=== PATIENT | male | born 1935 | race Caucasian/White ===

== ENCOUNTER 2016-04-02 09:32 | Outpatient (CLI) | payer OTHER ==
[~2016-04-02 09:32] MED LIST: METHYLPREDNISOLONE SUCC IV ONE; SODIUM CHLORIDE 0.9% IV ONE
[2016-04-02] MEDS: NORMAL SALINE 10 ML SYRINGE FLUSH IVP PRN ×2 (09:45→10:40)
[2016-04-02 11:16] VITALS: RESP 14; TEMP 98.1
== END 2016-04-02 10:45 | disposition home or self-care (01) ==
LOC: IV THERAPY 09:32
PROVIDERS: ATTEND Emergency Medicine
DX: G54.1 Lumbosacral plexus disorders (principal)
CPT/HCPCS: 96365; 99211; J2930; J7050

== ENCOUNTER 2016-04-09 09:40 | Outpatient (CLI) | payer OTHER ==
[2016-04-09] MEDS: NORMAL SALINE 10 ML SYRINGE FLUSH IVP PRN ×2 (10:25→11:30)
[2016-04-09 10:29] VITALS: RESP 20; TEMP 97.8
== END 2016-04-09 11:31 | disposition home or self-care (01) ==
LOC: IV THERAPY 09:40
PROVIDERS: ATTEND Emergency Medicine
DX: G54.1 Lumbosacral plexus disorders (principal)
CPT/HCPCS: 96365; 99211; J2930; J7050

== ENCOUNTER 2016-04-13 09:00 | Inpatient (IN) | payer OTHER ==
[2016-04-13] MEDS ORDERED: NORMAL SALINE 10 ML SYRINGE FLUSH IVP PRN (09:25)
[2016-04-13] MEDS ORDERED: Sodium Chloride 0.9% 1,000 ML PRIMARY IV ONE (09:25)
[2016-04-13] MEDS ORDERED: KETOROLAC 15 MG/1 ML VIAL IVP ONE (09:25)
[2016-04-13 09:59] LABS: BASOPHILS # (AUTO) 0.02 10*3/UL; BASOPHILS % (AUTO) 0.3 % (0-1); EOSINOPHILS % (AUTO) 2.2 % (0-8); HEMATOCRIT 36.1 % (42.0-52.0); HEMOGLOBIN 12.3 g/dL (14.0-18.0); IMM GRAN % (AUTO) 0.5 % (0-5); IMM GRAN# (AUTO) 0.03 10*3/UL; LYMPHOCYTES # (AUTO) 0.39 10*3/uL; LYMPHOCYTES % (AUTO) 6.2 % (10-50); MEAN CORPUSCULAR HEMOGLOBIN 31.9 PG (27-31); MEAN CORPUSCULAR HGB CONC 34.1 g/dL (33-37); MONOCYTES # (AUTO) 0.95 10*3/UL (0.3-0.8); MONOCYTES % (AUTO) 15.2 % (5-15); NEUTROPHILS # (AUTO) 4.74 10*3/UL; NEUTROPHILS % (AUTO) 75.6 % (50-80); RDW COEFFICIENT OF VARIATION 14.5 % (11.5-14.5); RED BLOOD COUNT 3.86 10^6/uL (4.70-6.10); WHITE BLOOD COUNT 6.27 10^3/uL (4.8-10.8)
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
[2016-04-13 10:19] LABS: BILIRUBIN,TOTAL 0.8 mg/dL (0.3-1.2); C-REACTIVE PROTEIN 2.2 mg/dL (0.0-0.9); CALCIUM 8.9 mg/dL (8.7-10.7); CREATININE 0.8 mg/dL (0.70-1.50); POTASSIUM 4.8 meq/L (3.8-5.2); TOTAL PROTEIN 5.4 g/dL (6.1-8.0)
[2016-04-13 10:34] LABS: PLATELET MORPHOLOGY COMMENT NORMAL MORPHOLOGY (NORM)
--- NOTE | 2016-04-13 11:53 | DI ---
CT PELVIS SCAN WITHOUT IV CONTRAST, 04/13/2016 9:26 AM : Clinical History: Fall. Low back pain and sacral pain. Previous Exam: None at this facility. Scans are performed from just superior to the umbilicus to below the symphysis pubis without IV cont rast. Sagittal and coronal images are generated. Scans through the lower abdomen and pelvis show no masses or abnormal fluid collections. There is no adenopathy. The appendix is normal. There is marked hypertrophy of the prostate with thickening of th e bladder wall. No hernias are identified. There is diffuse osteoporosis without evidence of a fractu re of the bony pelvis, the sacrum and coccyx, or of either hip. Cystic changes are present in the rig ht parasymphyseal region along with sclerosis in these changes may be related to previous trauma. READIN. No acute fractures of the bony pelvis, the sacrum and coccyx, or of the hips are noted. There is osteoporosis. 2. Scans of the pelvis are otherwise unremarkable except for evidence of marked prostatic hypertroph y with thickening of the bladder wall.
--- NOTE | 2016-04-13 12:38 | DI ---
CT LUMBAR SPINE SCAN, 04/13/2016 9:26 AM : Clinical History: Injury. The patient fell. Previous Exam: None at this facility. Comparison is made with an MRI lumbar spine scan from 12/30/2015 , and a CT abdomen and pelvis scan from 01/09/2016. Scans are obtained from the mid body of T-12 to the coccyx without IV contrast. Sagittal and coronal reformatted images are generated. There is an acute compression fracture of the body of L3 on the left lateral aspect without involveme nt of the posterior elements. There is no significant loss of height noted. There is an old compressi on fracture of L4 that was present on the MRI scan and the CT scan from last year. The MRI scan showe d no abnormal signal intensity at the site of the L4 compression fracture. The remaining vertebral stacy dies are of normal height. The patient has developed a new sclerotic density in the anterior aspect o f the body of L4 and the sclerotic density present in the anterior aspect of the body of L2 has incre ased in size since the CT abdomen and pelvis scans of 01/09/2016. Posterior alignment and posterior e lements are normal. Pedicles are normal. The sacrum and SI joints are normal. There is diffuse osteop orosis. The disc spaces at T11-12 and T12-L1 are normal. The disc spaces from L1-2 through L5-S1 show bulging but not herniated discs without canal or neural foraminal stenosis. There is a 4-5 mm right renal calculus in upper pole calyx and a smaller right mid zone calculus that measures 1-2 mm in diam eter and both are nonobstructing calculi. READIN. There is an acute compression fracture of the superior endplate of the body of L3 on the left gigi e with no significant loss of height and no involvement of the posterior elements. There is an old co mpression fracture of L4 that has not changed since the previous CT abdomen pelvis scan from 01/09/20 16. This patient has severe osteoporosis. 2. Interval enlargement and new development of sclerotic foci in the bodies of L2 and L4, respective ly. The MRI scan from 12/30/2015 did not show any evidence of edema in the body of L4 at the site of t he compression fracture. This would make the sclerotic densities on likely to represent healing fract ures. There are more likely to represent blastic metastatic disease in this patient with known prosta tic enlargement. 3. There are bulging but not herniated discs without canal or neural foraminal stenosis from L1-2 th rough L5-S1. The T11-12 and T12-L1 disc spaces are normal. 4. Incidental finding of small right-sided nonobstructing renal calculi.
--- NOTE | 2016-04-13 14:16 | PDOC ---
History and Physical - History of Present Illness Date and Time of Service: 04/13/2016 2:16 PM Chief Complaint: Low back pain of 3-4 days duration after a fall History of Present Illness: This is an 81 years old female with medical history significant for history of TIAs, history of prostate cancer with previous radiation treatment done in [place], history of shingles that affected the eyes and history of what sounds like neuropathy that affected the legs and he is getting IV Solu-Medrol once a week he's been followed up by Dr. Allred for it, he came into the hospital because of low back pain he fell 3-4 days ago after he lost balance and fell on his side he was not able to get up for an hour or so the last few days things got worse with worsening pain he tried some oxycodone at home however pain persisted and because of that he came into the ER. CT in the ER showed L3 fracture which looks acute and hence the admission. Apparently back in January or December he started to have some pain mainly in his legs and numbness in weakness he had several investigations done by Dr. Allred including an EMG and an LP and lab tests sent to [place] according to the family and he was started on steroid and that seemed to help the pain in his legs but he is still having numbness. There is also weakness in his legs and this is all old. He is been constipated for 4 days Past Medical History Medical History: 1. History of prostate cancer with previous radiation treatment. 2. Hypertension. 3. Shingles affected the eyes. 4. Neuropathy based on his description getting IV Solu-Medrol once a week. 5. History of TIAs Surgical History: 1. History of skin cancer with previous surgery Past Social History: He doesn't smoke but he chews, area drinks, no drugs. He lives with his . Since he had this problem with his the legs is more using wheelchair for mobility. Tobacco Use: Never Smoker Substance Use Type: None Alcohol Use: Rarely Medication / Allergies Home Medications: Home Medications Medication Instructions Recorded Confirmed Type Tamsulosin HCl [Flomax] 1 cap PO BID cap 07/16/14 04/13/16 History Atorvastatin Calcium 1 tab PO DAILY #90 tab 10/02/15 04/13/16 Clinic Clopidogrel Bisulfate [Plavix] 1 tab PO DAILY #90 tab 10/02/15 04/13/16 Clinic Gabapentin 1 cap PO TID #90 cap 12/12/15 04/13/16 Clinic Aspirin 81 mg PO DAILY tab 12/27/15 04/13/16 History Clotrimazole/Betamethasone Dip 1 applic TOPICAL BID #60 tube 12/27/15 04/13/16 [facility] [Clotrimazole-Betamethasone Crm] Oxycodone HCl 1 tab PO Q4-6H #60 tab 02/12/16 04/13/16 Clinic Allergies/Adverse Reactions: Allergies Allergy/AdvReac Type Severity Reaction Status Date / Time petrchelletum, yellow Allergy Mild rash Verified 04/14/16 11:26 Review of Systems - Review of Systems All Systems: Reviewed & No Additional Complaints Except as Stated Exam - Vitals Vital Signs: Vital Signs Temperature 97.6 F Temperature Source Temporal Artery Scan Pulse Rate [Pulse Oximeter 64 Right] Pulse Rate 67 Respiratory Rate 20 Blood Pressure [Left Arm] 147/70 Blood Pressure 127/91 Pulse Ox 91 Oxygen Delivery Method Room Air Height 5 ft 6 in Weight 120 lb - General General Appearance: POSITIVE: No Acute Distress, Cooperative - Head Head Exam: POSITIVE: Normal Inspection, Atraumatic - Eye Eye Exam: POSITIVE: Normal Appearance - ENT ENT Exam: POSITIVE: Normal Exam - Neck Neck Exam: POSITIVE: Normal Inspection - Respiratory Respiratory Exam: POSITIVE: Clear to Auscultation - Bilaterally - Cardiovascular Cardiovascular Exam: POSITIVE: RRR - GI/Abdominal GI/Abdominal Exam: POSITIVE: Normal Bowel Sounds, Non Tender, Non Distended, Soft - Rectal Rectal Exam: POSITIVE: Deferred - External Exam: POSITIVE: Deferred - Extremities Extremities Exam: POSITIVE: Normal Inspection - Back Back Exam: POSITIVE: Normal Inspection - Neurological Neurological Exam: POSITIVE: Alert, Oriented x 3, CN II-XII Intact Additional Neurological Exam Details: Weakness in the left leg compared to the right leg she's old - Psychiatric Psychiatric Exam: POSITIVE: Normal Affect - Integumentary Additional Integumentary Exam Details: A blister noted on the back. Results - Labs CBC and BMP: 04/13/16 09:53 04/13/16 09:53 - Imaging Status: Report Reviewed by Me (There is an acute compression fracture superior endplates of the body of L3 on the left side with no significant loss of height and no involvement of the posterior elements. Interval enlargement and new development of sclerotic foci in the bodies of L2 and L4 respectively they are more likely to represent blastic metastasis) Assessment and Plan - Patient Problems (1) Compression fracture of L3 lumbar vertebra Current Visit: Yes Status: Acute Comment: We will write for pain medications, PT and OT. (2) Bone lesion Current Visit: Yes Status: Acute Comment: There are lesions on the spine per my discussion with Dr. Driver suspicious for blastic metastasis. We'll check his PSA level. Code(s): M89.9 (3) History of transient ischemic attack Current Visit: Yes Status: Acute Comment: Continue previous medications
[2016-04-13] MEDS: GABAPENTIN 300 MG CAPSULE PO SCH ×2 (15:34→20:35)
--- NOTE | 2016-04-13 16:58 | OTI REPORT ---
Thank you for the referral of Adriano Faye. He was seen on 04/13/16 for an occupational therapy inpatient evaluation. SUBJECTIVE: The patient is an 81-year-old male. The states that he lived at home with his prior to his recent hospitalization. The patient has a two level home; however, he does not go up the stairs. He has one step in the entrance with no rail present. The patient has a walk in shower with shower chair, grab bar, and hand held shower. The patient has a raised toilet seat. He sleeps in a standard bed and does have a four wheeled walker and cane at home. The patient was admitted for low back pain and a related fall. The patient has a history of TIA, prostate cancer, skin cancer, and a history of shingles that affected his vision in both eyes. Prior to admittance the patient was independence with dressing, ADLs, required min assist for showering, and stated that his son does help him. He states that his does the cooking, cleaning, laundry, and grocery shopping with their son. PAST MEDICAL HISTORY: Past medical history can be found in the patient's medical record. OBJECTIVE FINDINGS: Pain: The patient reports a pain level of 8/10 on the verbal analog scale (0=no pain, 10=worst pain). Range of motion: Active range of motion of bilateral upper extremities is within functional limits. Strength: Upper extremity strength is 3+ to 4/5, depending on the pivot. Activities of daily living: Grooming requires contact guard to min assist with steadying needed to help patient while standing at the sink due to decreased dynamic balance deficits and low back pain. Toileting requires min assist with assistance needed to steady the patient. The patient is a little bit guarded when he stands due to low back pain. Toilet transfer requires min assist to contact guard with use of grab bars. Showering requires mod assist due to compromised reach and ability to flex forward due to back precautions and compression fracture. Shower transfer requires min assist for same reasons, decreased dynamic balance deficits, and guarded movement. Upper body dressing requires set up assistance. Lower body dressing requires mod assistance; the patient just needs help initiating threading in both pant legs and with socks due to back precautions and compression fractures. ASSESSMENT: Problem List: Decreased ability to perform ADLs Decreased balance/mobility Decreased transfers Decreased safety Low back pain Patient will benefit from education on adaptive equipment use and to develop a home exercise program Short-Term Goals: To be met by discharge from inpatient: Patient will complete functional transfers with modified independence with adaptive equipment use including toilet and shower transfers. Patient will complete upper and lower body dressing with modified independence with adaptive equipment use. Patient will complete showering including shower transfer with modified independence and adaptive equipment use as needed. Long-Term Goals: To be met following discharge from inpatient: Patient will increase safety, ADLs, and strength sufficient to return home to his prior level of function, performing ADLs with supervision to min assist for showering. TREATMENT PLAN: Patient will be seen B.I.D during the week and one time per day over the weekend as an inpatient to address the above goals and objectives. INITIAL TREATMENT: Treatment today consisted of the initial evaluation activities only. ARABELLA
[2016-04-13] MEDS: HYDROcodone-APAP 5 MG -325 MG TABLET PO PRN (19:04)
[2016-04-13] MEDS: DOCUSATE 100 MG CAPSULE PO SCH (20:34)
[2016-04-13] MEDS: TAMSULOSIN 0.4 MG CAPSULE PO SCH (20:34)
[2016-04-13] MEDS: ATORVASTATIN 20 MG TABLET PO SCH (20:34)
[2016-04-14 05:22] LABS: BILIRUBIN,URINE NEGATIVE (NEG); CLARITY,URINE CLEAR (CLEAR); GLUCOSE, URINE (UA) NEGATIVE (NEG); LEUKOCYTE ESTERASE ,URINE NEGATIVE (NEG); NITRATE,URINE NEGATIVE (NEG); OCCULT BLOOD,URINE NEGATIVE (NEG); PH,URINE 5.5 (5.0-8.5); PROTEIN,URINE NEGATIVE (NEG); URINE SAMPLE TYPE CLEAN CATCH URINE; UROBILINOGEN,URINE 0.2 EU/dL (0.2)
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
[2016-04-14] MEDS: ASPIRIN 81 MG (BABY) CHEWABLE TABLET PO SCH (09:07)
[2016-04-14] MEDS: DOCUSATE 100 MG CAPSULE PO SCH ×2 (09:09→20:07)
[2016-04-14] MEDS: GABAPENTIN 300 MG CAPSULE PO SCH ×3 (09:09→20:06)
[2016-04-14] MEDS: CLOPIDOGREL 75 MG TABLET PO SCH (09:10)
[2016-04-14] MEDS: TAMSULOSIN 0.4 MG CAPSULE PO SCH ×2 (09:10→20:07)
[2016-04-14] MEDS: ENOXAPARIN SODIUM 30 MG/0.3 ML SYRINGE SUBCUT SCH (09:11)
[2016-04-14] MEDS: POLYETHYLENE GLYCOL 3350 17 GM POWDER PO SCH (09:11)
[2016-04-14] MEDS: HYDROcodone-APAP 5 MG -325 MG TABLET PO PRN ×3 (09:15→20:06)
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
--- NOTE | 2016-04-14 12:13 | PT.PROG ---
Progress Note Progress Note: S. Patient stated he does not want to go to the therapy gym however he would go for a walk. O. Patient ambulated 100 feet with front wheeled walker. Patient was left in bed with alarm and call light. A. Patient was able to ambulate fair, he reported that he has pain however he feels the back brace will help it feel better. Patient would continue to benefit from skilled therapy at this time to increase strength, and endurance. P. Continue POC.
--- NOTE | 2016-04-14 13:44 | PDOC(PROG) ---
Date and Time of Service: 04/14/2016 1:44 PM Interval History: Subjective He feels better today compared to yesterday, pain seemed to be less than yesterday. He did have a bowel movement. He continued to have numbness feeling in anterior aspects of the thigh and that's old. Objective : Data - Labs CBC and BMP: 04/13/16 09:53 04/13/16 09:53 Labs - Last 24 Hours: Laboratory Results 04/13/16 04/14/16 Range/Units 13:31 04:45 PSA Screen 60.2 H (0.006-4.00) ng/ml Ur Collection Type Clean catch urine Urine Color Yellow Urine Clarity Clear (CLEAR) Urine pH 5.5 (5.0-8.5) Ur Specific [place] 1.015 (1.005-1.030) Urine Protein Negative (NEG) mg/dl Urine Glucose (UA) Negative (NEG) mg/dL Urine Ketones Negative (NEG) Urine Occult Blood Negative (NEG) Urine Nitrate Negative (NEG) Urine Bilirubin Negative (NEG) Urine Urobilinogen 0.2 (0.2) EU/dL Ur Leukocyte Esterase Negative (NEG) Ur Culture Indicated? Culture not set Objective : Exam - General General Appearance: No Acute Distress, Cooperative - Head Head Exam: Normal Inspection - Eye Eye Exam: Normal Appearance - ENT ENT Exam: Normal Exam - Neck Neck Exam: Normal Inspection - Respiratory Respiratory Exam: Clear to Auscultation - Bilaterally - Cardiovascular Cardiovascular Exam: RRR - GI/Abdominal GI/Abdominal Exam: Normal Bowel Sounds, Non Tender, Non Distended, Soft - Rectal Rectal Exam: Deferred - External Exam: Deferred - Extremities Extremities Exam: Normal Inspection - Back Back Exam: Normal Inspection - Neurological Neurological Exam: Alert, Oriented x 3, CN II-XII Intact Additional Neurological Exam Details: Unchanged with weakness in the left leg compared to the right leg. - Psychiatric Psychiatric Exam: Normal Affect - Integumentary Integumentary Exam: Normal Color Assessment and Plan - Patient Problems (1) Compression fracture of L3 lumbar vertebra Current Visit: Yes Status: Acute Comment: Continue same pain medication pain seemed to be controlled. His PSA came back high at 60.2 I spoke with the oncologist in [place] and they will call her for appointment she suggested a bone scan which we'll order. (2) Bone lesion Current Visit: Yes Status: Acute Comment: We'll do a bone scan. PSA was elevated. Code(s): M89.9 (3) History of transient ischemic attack Current Visit: Yes Status: Acute Comment: Same med (4) DVT prophylaxis Current Visit: Yes Status: Acute Comment: We will put him on Lovenox
--- NOTE | 2016-04-14 16:18 | OT.PROG ---
Progress Note Progress Note: S: pt was accompanied by and stated he did not want to go downstairs but he would go for a walk. O: pt was seen in his room. He completed bed mobility from supine to eob with min A. He completed sit to stand with min a and completed toilet transfer with CGA and toileting completed with mod Ind. She needed min A with pulling up garments after toileting. He completed hygiene at sink with SBa to complete. PT took over therapy portion at this point. A: pt would continue to benefit from therapy to increase activity tolerance and decrease pain. P: continue per plan of care.
--- NOTE | 2016-04-14 16:58 | PT.PROG ---
Progress Note Progress Note: S. Patient stated that he did not want to go to the therapy gym this afternoon. O. Patient ambulated 100 feet in the tucker then performed sit to stands x 3. Patient was left in bed with alarm and call light. A. Patient continues to tolerate ambulation well, he requires min assist with transfers and ambulation. He would continue to benefit from skilled therapy to increase strength and mobility. P. continue POC.
[2016-04-14] MEDS: NORMAL SALINE 10 ML SYRINGE FLUSH IVP PRN (20:05)
[2016-04-14] MEDS: HYDROmorphone 2 MG/1 ML IVP PRN (20:05)
[2016-04-14] MEDS: ATORVASTATIN 20 MG TABLET PO SCH (20:06)
--- NOTE | 2016-04-14 22:48 | DI ---
WHOLE BODY BONE SCAN WITH SPOT FILMS OF THE THORACIC AND LUMBAR SPINE, 04/14/2016 1:43 PM : Clinical History: Back pain. Prostate cancer. Previous Exam: 08/22/2015. 2 hours after IV injection of 31 mCi of [id number], whole body anterior and posterior images were obtai marianela. Spot films of the lumbar spine and thoracic spine are also obtained. Both kidneys are visualized along with the left ureter. There is a large defect in the floor of the b ladder indicating marked prosthetic hypertrophy. This hypertrophy may be causing mild left hydrourete r. There is a focus of increased activity in the right T4 pedicle as well as in the left eighth and n inth ribs posteriorly. These are new since the previous exam. On the previous study, subtle areas of increased activity were present in the right 10th through 12th ribs and these have not changed. New i ncreased activity is present in the L2 and L4 vertebral bodies with subtle increased activity in the L3 vertebral body. A recent CT scan showed marked sclerosis of the L2 and L4 vertebral bodies consist ent with metastatic disease as well as an acute fracture of the L3 vertebral body. The patient has de veloped increased activity in the left ankle joint and the left metatarsal bones, and the medial comp artment of the left knee. These may all be secondary to arthritis although plain films would facilita te differentiating between arthritis and metastatic disease. Readin. There are new focal areas of increased activity in the left T4 pedicle, the right eighth and nint h ribs posteriorly, the L2 and L4 vertebral bodies all consistent with metastatic disease. 2. There is increased activity in the L3 vertebral body in this patient was shown to have an acute f racture in the body of L3 in the amount of activity would be consistent with that finding. 3. Increased activity is present in the medial compartment of the left knee as well as in the left a nkle joint in the region of the left metatarsal bones. Correlation with plain films would be helpful to differentiate between arthritis and metastatic disease. 4. 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
[2016-04-15] MEDS: HYDROcodone-APAP 5 MG -325 MG TABLET PO PRN ×2 (02:13→08:47)
[2016-04-15] MEDS: NORMAL SALINE 10 ML SYRINGE FLUSH IVP PRN (02:14)
[2016-04-15] MEDS: HYDROmorphone 2 MG/1 ML IVP PRN ×2 (02:14→17:24)
[2016-04-15] MEDS: ENOXAPARIN SODIUM 30 MG/0.3 ML SYRINGE SUBCUT SCH (08:45)
[2016-04-15] MEDS: DOCUSATE 100 MG CAPSULE PO SCH ×2 (08:46→20:54)
[2016-04-15] MEDS: TAMSULOSIN 0.4 MG CAPSULE PO SCH ×2 (08:46→20:53)
[2016-04-15] MEDS: GABAPENTIN 300 MG CAPSULE PO SCH ×3 (08:46→20:54)
[2016-04-15] MEDS: CLOPIDOGREL 75 MG TABLET PO SCH (08:46)
[2016-04-15] MEDS: ASPIRIN 81 MG (BABY) CHEWABLE TABLET PO SCH (08:47)
[2016-04-15] MEDS: POLYETHYLENE GLYCOL 3350 17 GM POWDER PO SCH (08:48)
--- NOTE | 2016-04-15 10:04 | PDOC(PROG) ---
Date and Time of Service: 04/15/2016 10 AM Interval History: Subjective He said his back pain is worse today compared to yesterday. He rates his pain maybe 6-7 out of 10. No other symptoms. Objective : Data - Labs CBC and BMP: 04/13/16 09:53 04/13/16 09:53 Objective : Exam - General General Appearance: No Acute Distress, Cooperative - Head Head Exam: Normal Inspection - Eye Eye Exam: Normal Appearance - ENT ENT Exam: Normal Exam - Neck Neck Exam: Normal Inspection - Respiratory Respiratory Exam: Clear to Auscultation - Bilaterally - Cardiovascular Cardiovascular Exam: RRR - GI/Abdominal GI/Abdominal Exam: Normal Bowel Sounds, Non Tender, Non Distended, Soft - Rectal Rectal Exam: Deferred - External Exam: Deferred - Extremities Additional Extremities Exam Details: Weakness in the left lower extremity compared to the right which is old. - Neurological Neurological Exam: Alert, Oriented x 3, CN II-XII Intact - Psychiatric Psychiatric Exam: Normal Affect Assessment and Plan - Patient Problems (1) Compression fracture of L3 lumbar vertebra Current Visit: Yes Status: Acute Comment: Continue current pain medication. Will add the lidocaine patch. (2) Bone lesion Current Visit: Yes Status: Acute Comment: Bone scan did show increased activity in the left T4 pedicle, the right eighth and the ninth rib posteriorly, the L2 and L4 vertebral body consistent with metastatic disease. PSA is increased. I spoke with his oncologist yesterday she said they will call him for an appointment. Code(s): M89.9 (3) History of transient ischemic attack Current Visit: Yes Status: Acute Comment: Same medication (4) DVT prophylaxis Current Visit: Yes Status: Acute Comment: He is on Lovenox (5) Lumbosacral plexopathy Current Visit: Yes Status: Acute Comment: I did obtain records from Dr. 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
[2016-04-15] MEDS: LIDOCAINE 700 MG PATCH TOPICAL SCH (10:07)
--- NOTE | 2016-04-15 13:55 | PT.PROG ---
Progress Note Progress Note: S. Patient stated that he doesn't want to go to the therapy gym however will would do exercises in his room. O. Patient performed exercises in the form of; heel slides, quad sets, glut sets , ankle pumps, straight leg raises, hip abduction/ adduction, seated marches, long arc quads, heel toe raises all x 20 bilaterally. Patient was left with OT for further therapy. A. Patient tolerated exercises well, he continues to struggle with pain and is unable to perform all exercises due to pain. Patient would continue to benefit from skilled therapy at this time to increase strength, mobility and decrease pain. P. Continue POC.
--- NOTE | 2016-04-15 15:36 | PT.PROG ---
Progress Note Progress Note: S. Patient stated that he doesn't want to do much this afternoon. He reports that his wound isn't painful. O. Patient sat at the edge of the bed x 10 minutes. Wound care performed to right lateral lumbar. Soiled dressing removed to reveal blister still intact on inferior portion. Superior portion has reabsorbed with outer skin still intact and adhering to tissue. Blister was redressed with telfa and covaderm. Will continue to monitor. A. Blister is red and remains intact, continue sterile wound dressing to promote healing. Nursing observed wound during dressing change. P. Continue POC.
--- NOTE | 2016-04-15 16:19 | OT.PROG ---
Progress Note Progress Note: S; pt requested to do therapy later in morning. We returned later and he stated he was ready to get up. O: pt was seen in his room in the a.m. He completed bed mobility with min A this morning. He also completed LE dressing with min A as he had difficulty with L leg. He then stood with [facility] for safet and worked on transfers. He transferred approx 120 ft with no breaks. He did not need to complete restroom transfer. He was left in supine position in bed after completing bed mobility with mod Ind. A: pt would continue to benefit from therapy to increase overall activity tolerance, strength and function. May benefit from pool therapy. P: Continue per plan of care.
--- NOTE | 2016-04-15 16:23 | OT.PROG ---
Progress Note Progress Note: S: pt was accompanied by and friends today. He was ready to get out of bed. O: pt was seen in the p.m. and was seen after PT completed wound care. Pt completed bed mobility with mod Ind. Pt stood with CGA for safety. He completed transfer approx 120 ft with 0 breaks and with CGa to maintain safety. He completed bed mobility with Mod Ind and was left in supine position with call light within reach. A: pt would continue to benefit from therapy to increase activity tolerance and monitor ADL's. P: continue per plan of care.
[2016-04-15] MEDS: HYDROcodone-APAP 10 MG-325 MG TABLET PO PRN (20:54)
[2016-04-15] MEDS: ATORVASTATIN 20 MG TABLET PO SCH (20:54)
[2016-04-15] MEDS: Patch Removal PATCH TRANSDERM SCH (21:26)
[2016-04-16] MEDS: HYDROcodone-APAP 10 MG-325 MG TABLET PO PRN ×3 (04:22→20:13)
[2016-04-16 06:15] LABS: HEMATOCRIT 32.2 % (42.0-52.0); HEMOGLOBIN 10.8 g/dL (14.0-18.0); MEAN CORPUSCULAR HEMOGLOBIN 31.4 PG (27-31); MEAN CORPUSCULAR HGB CONC 33.5 g/dL (33-37); MEAN PLATELET VOLUME 10.5 FL (7.4-12.2); RDW COEFFICIENT OF VARIATION 14.6 % (11.5-14.5); RED BLOOD COUNT 3.44 10^6/uL (4.70-6.10); WHITE BLOOD COUNT 2.86 10^3/uL (4.8-10.8)
[2016-04-16 06:24] LABS: BLOOD UREA NITROGEN 15 mg/dL (7-22); CALCIUM 8.4 mg/dL (8.7-10.7); CHLORIDE 107 meq/L (98-112); CREATININE 0.6 mg/dL (0.70-1.50); GLUCOSE 84 mg/dL (78-110); POTASSIUM 4.3 meq/L (3.8-5.2); SODIUM 137 meq/L (135-145)
--- NOTE | 2016-04-16 08:47 | PDOC(PROG) ---
Date and Time of Service: 04/16/2016 8:44 AM Interval History: Subjective Patient back pain seems to be better today compared to last night. We did increase the dosage of his the medication and that seemed to help. He said he slept well. Did not have a bowel movement yet today. He did walk with physical therapy. He is due for his IV Solu-Medrol today. That would be his last dosage Objective : Data - Labs CBC and BMP: 04/16/16 06:00 04/16/16 06:00 Labs - Last 24 Hours: Laboratory Results 04/16/16 Range/Units 06:00 WBC 2.86 L (4.8-10.8) 10^3/uL RBC 3.44 L (4.70-6.10) 10^6/uL Hgb 10.8 L (14.0-18.0) g/dL Hct 32.2 L (42.0-52.0) % MCV 93.6 H (80-90) FL MCH 31.4 H (27-31) PG MCHC 33.5 (33-37) g/dL RDW Std Deviation 47.9 (39-50) fL RDW Coeff of Yasmine 14.6 H (11.5-14.5) % Plt Count 145 (140-350) 10*3/uL MPV 10.5 (7.4-12.2) FL Sodium 137 (135-145) meq/L Potassium 4.3 (3.8-5.2) meq/L Chloride 107 (98-112) meq/L Carbon Dioxide 25 (23-33) meq/L Anion Gap 5 (5-20) BUN 15 (7-22) mg/dL Creatinine 0.6 L (0.70-1.50) mg/dL Estimated GFR [employer] Manager BUN/Creatinine Ratio 25.00 H (6-20) Glucose 84 (78-110) mg/dL Calculated Osmolality 283.0 (267-292) mOsm/kg Calcium 8.4 L (8.7-10.7) mg/dL Objective : Exam - General General Appearance: No Acute Distress, Cooperative - Head Head Exam: Normal Inspection - Eye Eye Exam: Normal Appearance - ENT ENT Exam: Normal Exam - Neck Neck Exam: Normal Inspection - Respiratory Respiratory Exam: Clear to Auscultation - Bilaterally - Cardiovascular Cardiovascular Exam: RRR - GI/Abdominal GI/Abdominal Exam: Normal Bowel Sounds, Non Tender, Non Distended, Soft - Rectal Rectal Exam: Deferred - External Exam: Deferred - Extremities Extremities Exam: Normal Inspection - Back Back Exam: Normal Inspection - Neurological Neurological Exam: Alert, Oriented x 3, CN II-XII Intact Additional Neurological Exam Details: Some weakness in the left leg compared to the right but this is old - Psychiatric Psychiatric Exam: Normal Affect Assessment and Plan - Patient Problems (1) Compression fracture of L3 lumbar vertebra Current Visit: Yes Status: Acute Comment: Continue current dosage of the pain medication, we did increase the dosage last night and that seems to help him control his pain. Continue PT and OT. Stable by tomorrow maybe home tomorrow. (2) Bone lesion Current Visit: Yes Status: Acute Comment: I did speak with the son about the results of the bone scan, I did tell him that I spoke with the oncologist and they will call the patient and the give him an appointment to follow-up with with them to decide about further treatment of the bone metastatic lesions. He'll get an IV steroid dosage today I think that probably would help his pain. Code(s): M89.9 (3) History of transient ischemic attack Current Visit: Yes Status: Acute Comment: Same medication (4) DVT prophylaxis Current Visit: Yes Status: Acute Comment: He is on Lovenox (5) Lumbosacral plexopathy Current Visit: Yes Status: Acute Comment: Today is the final dosage of his Solu-Medrol
[2016-04-16] MEDS: NORMAL SALINE 10 ML SYRINGE FLUSH IVP PRN ×2 (09:45→20:14)
[2016-04-16] MEDS: TAMSULOSIN 0.4 MG CAPSULE PO SCH ×2 (09:46→20:14)
[2016-04-16] MEDS: ASPIRIN 81 MG (BABY) CHEWABLE TABLET PO SCH (09:46)
[2016-04-16] MEDS: GABAPENTIN 300 MG CAPSULE PO SCH ×3 (09:46→20:13)
[2016-04-16] MEDS: POLYETHYLENE GLYCOL 3350 17 GM POWDER PO SCH (09:46)
[2016-04-16] MEDS: CLOPIDOGREL 75 MG TABLET PO SCH (09:46)
[2016-04-16] MEDS: DOCUSATE 100 MG CAPSULE PO SCH ×2 (09:46→20:12)
[2016-04-16] MEDS: ENOXAPARIN SODIUM 30 MG/0.3 ML SYRINGE SUBCUT SCH (09:46)
[2016-04-16] MEDS: LIDOCAINE 700 MG PATCH TOPICAL SCH (09:47)
[2016-04-16] MEDS ORDERED: SODIUM CHLORIDE 0.9% IV ONE (10:00)
[2016-04-16] MEDS ORDERED: METHYLPREDNISOLONE SUCC IV ONE (10:00)
--- NOTE | 2016-04-16 16:29 | PT.PROG ---
Progress Note Progress Note: S. Patient stated that he would do exercises in his room. O. Patient performed supine exercises in the form of; heel slides, quad sets, hip abduction/adduction, straight leg raises all x 20 bilaterally. Patient was left with OT for further therapy. A. Patient tolerated exercises well. He continues to struggle with weakness and pain. Patient would continue to benefit from skilled therapy to increase strength and mobility. P. Continue POC.
--- NOTE | 2016-04-16 16:40 | OT.PROG ---
Progress Note Progress Note: S: pt stated he had a shower last night and he knicked a mole and it was bleeding. O: pt was seen in his room in the a.m. He sat up on EOB with min A. It was observed that he did have blood that had soaked through shirt. bandaid was taken off and area cleaned and new dressing was placed. He doffed shirt Ind and donned new clean shirt Ind. He completed functional transfer approx 125 ft with CGA. Pt completed bed mobility with mod Ind. He was left upright in bed with call light within reach and bed alarm on. A: pt may continue to benefit from therapy to increase activity tolerance. May benefit from Pool to assist with decreasing pain in back. P: continue per plan of care.
--- NOTE | 2016-04-16 16:43 | OT.PROG ---
Progress Note Progress Note: S: pt stated that he had family in to visit. He thinks the decided he has bone cancer. O: pt was seen in his room and only completed transferring this afternoon. He completed bed mobility with min A and sit to stand with CGA. He transferred approx 150 ft with 0 rest breaks. He was left in his chair with nursing present as they were cleaning his bed. A: pt would benefit from pool therapy to assist with back pain. P: Continue per plan of care.
[2016-04-16] MEDS: HYDROmorphone 2 MG/1 ML IVP PRN (20:13)
[2016-04-16] MEDS: ATORVASTATIN 20 MG TABLET PO SCH (20:13)
[2016-04-16] MEDS: Patch Removal PATCH TRANSDERM SCH (21:07)
[2016-04-17] MEDS: HYDROcodone-APAP 10 MG-325 MG TABLET PO PRN ×3 (04:19→15:00)
[2016-04-17] MEDS: DOCUSATE 100 MG CAPSULE PO SCH (09:15)
[2016-04-17] MEDS: LIDOCAINE 700 MG PATCH TOPICAL SCH (09:15)
[2016-04-17] MEDS: TAMSULOSIN 0.4 MG CAPSULE PO SCH (09:15)
[2016-04-17] MEDS: ASPIRIN 81 MG (BABY) CHEWABLE TABLET PO SCH (09:15)
[2016-04-17] MEDS: POLYETHYLENE GLYCOL 3350 17 GM POWDER PO SCH (09:16)
[2016-04-17] MEDS: ENOXAPARIN SODIUM 30 MG/0.3 ML SYRINGE SUBCUT SCH (09:16)
[2016-04-17] MEDS: GABAPENTIN 300 MG CAPSULE PO SCH ×2 (09:17→14:53)
[2016-04-17] MEDS: CLOPIDOGREL 75 MG TABLET PO SCH (09:17)
--- NOTE | 2016-04-17 12:04 | PT.PROG ---
Progress Note Progress Note: S. Patient stated that he is feeling pretty good, he reports that he thinks he is ready to go home. O. Patient ambulated 100 feet in the tucker then performed sit to stands x 5. Patient was left in bed with alarm and call light. A. Patient continues to tolerate ambulation well, he requires min assist with transfers and ambulation. He would continue to benefit from skilled therapy to increase strength and mobility. P. continue POC.
--- NOTE | 2016-04-17 12:12 | OT.PROG ---
Progress Note Progress Note: S: I am doing okay, I think I may have cancer in my back but I am going to live for the day." "My back pain is a 3/10 and I am moving around a lot better and plan on going home today." O: Pt. seen from 929 to 1029 with pt. moving form modified supine to sit with SBA. Pt. then completed sit to stand transfer with SBA and FWW. Pt. then ambulating to supportive back chair and engaged in HEP exercises. Back precautions reviewed and pt. completing 3 sets of 8 isometric upper rectus strengthening exercises. Pt. then engaged in upper back strengthening exercises by engaging in overhead reaches 3 sets of 2 with a 2 min rest break in between. Education provided to pt. on safety with functional transfers. A: Pt. improving with functional mobility and pt. states he is eager to return home. Pt. d/c anticipated and has A/E in place. P: Continue POC. Anu Gustafson OTD, OTR/L
--- NOTE | 2016-04-17 15:56 | OT.PROG ---
Progress Note Progress Note: S: pt stated he gets to go home. He is happy to go home. O: pt was seen in his room in the p.m. He was in supine position and completed bed mobility with min Artie. Pt donned UE shirt Ind and dressing was changed with assistance from PT. Nursing also was present. After completing PT, pt prepared himself. He completed UE dressing Ind and LE dressing completed with min A. Bed mobility completed with MOd Ind. He was left in supine position in bed with alarm on and call light within reach. A: pt completed dressing well and may benefit from Out pt setting therapy. Monitor wounds. P: pt will d/c in the p.m.
[2016-04-17 16:13] VITALS: RESP 20; TEMP 98.6
--- NOTE | 2016-04-17 16:20 | PT.PROG ---
Progress Note Progress Note: S. Patient stated that he is feeling good. O. Patient ambulated 100 feet in the tucker, Wound care performed to right lateral lumbar. Soiled dressing removed to reveal blister burst. Superior portion has reabsorbed with outer skin still intact and adhering to tissue. Blister was redressed with triple antibiotic cream, telfa and covaderm. Will continue to monitor. A. Patient continues to tolerate ambulation well, he requires min assist with transfers and ambulation. He would continue to benefit from skilled therapy to increase strength and mobility. P. continue POC.
--- NOTE | 2016-04-17 16:21 | DCSUMMARY ---
Hospitalization Summary Admit Date: 04/13/16 Discharge Date: 04/17/16 Primary Diagnosis:: lumbar compression fracture. Secondary Diagnosis:: Probable metastatic prostate cancer. Hospital Course: This very pleasant 81-year-old male who has a known history of prostate cancer who came in with a fall and back pain. He was found to have an acute lumbar compression fracture and admitted for physical therapy, occupational therapy, pain management, and it was also found that he had sclerotic lesions that were consistent with metastatic disease. A PSA was done and it was over 60. Patient has known prostate adenocarcinoma that was treated with radiation 3 years ago. He denies any bone pain otherwise. Oncology was called, and they will schedule outpatient appointment. The patient did very well with physical therapy and occupational therapy, but did not respond well to brace therapy so he may do that on a limited basis outside the hospital. Pain medications did help in the hospital. I had a discussion with the patient and his [id number] regarding dual therapy in the setting of stroke prevention, and the patient's story is that he was not on any antiplatelet therapy prior to his initial stroke. I don't think that there is any gain in this patient to do dual therapy with aspirin and Plavix at this time. I recommended he go with Plavix for stroke prevention. Today, no completes of chest pain, no shortness breath, no nausea or vomiting, no abdominal pain. Assessment and Plan: 1. As per discharge assessments noted 2. Disposition: Patient is discharged home. 3. Condition on discharge, stable and improved. 4. Diet: regular diet 5. Activities: resume normal activities/per physical therapy 6. Follow-Up: 1. See Dr. Oates in a week 2. 7. Medications at the Time of Discharge: Home Medications Medication Instructions Recorded Confirmed Type Tamsulosin HCl [Flomax] 1 cap PO BID cap 07/16/14 04/13/16 History Atorvastatin Calcium 1 tab PO DAILY #90 tab 10/02/15 04/13/16 Clinic Clopidogrel Bisulfate [Plavix] 1 tab PO DAILY #90 tab 10/02/15 04/13/16 Clinic Gabapentin 1 cap PO TID #90 cap 12/12/15 04/13/16 Clinic Docusate Sodium [Colace] 100 mg PO BID #60 cap 04/17/16 Rx Hydrocodone/Acetaminophen [Micro 1 - 2 tab PO Q4H PRN #60 tab 04/17/16 Rx 7.5-325 Tablet] Lidocaine Patch 5% [Lidoderm Patch 700 mg TOPICAL DAILY #20 adh..patch 04/17/16 Rx 5%] 8. Time, care, counseling and coordination of care for this discharge is greater than 30 minutes. Exam - Vitals Vital Signs: Vital Signs Vital Signs - Last Taken Temperature 98.6 F 04/17/16 16:11 Pulse Rate 78 04/17/16 16:11 Respiratory Rate 20 04/17/16 16:11 Blood Pressure 150/73 04/17/16 16:11 Pulse Ox 90 04/17/16 16:11 - General General Appearance: POSITIVE: No Acute Distress, Cooperative - Eye Eye Exam: POSITIVE: No Scleral Icterus - Respiratory Respiratory Exam: POSITIVE: Clear to Auscultation - Bilaterally, Breathing Non Labored - Cardiovascular Cardiovascular Exam: POSITIVE: RRR, No Murmur, No Clicks, No Gallops, No Rubs, No JVD - GI/Abdominal GI/Abdominal Exam: POSITIVE: Normal Bowel Sounds, Non Tender, Non Distended, Soft - Extremities Extremities Exam: POSITIVE: No Clubbing Present, No Edema Present, No Cyanosis Present - Neurological Neurological Exam: POSITIVE: Alert, Oriented x 3, No Facial Droop, Speech Intact / Clear, Moves All Extremities Equally - Psychiatric Psychiatric Exam: POSITIVE: Normal Affect, Normal Mood Data Perinent Studies: Laboratory Results 04/13/16 04/13/16 04/14/16 Range/Units 09:53 13:31 04:45 WBC 6.27 (4.8-10.8) 10^3/uL RBC 3.86 L (4.70-6.10) 10^6/uL Hgb 12.3 L (14.0-18.0) g/dL Hct 36.1 L (42.0-52.0) % MCV 93.5 H (80-90) FL MCH 31.9 H (27-31) PG MCHC 34.1 (33-37) g/dL RDW Std Deviation 48.2 (39-50) fL RDW Coeff of Yasmine 14.5 (11.5-14.5) % Plt Count 138 L (140-350) 10*3/uL MPV 11.0 (7.4-12.2) FL Immature Gran % (Auto) 0.5 (0-5) % Neut % (Auto) 75.6 (50-80) % Lymph % (Auto) 6.2 L (10-50) % Gilchrist % (Auto) 15.2 H (5-15) % Eos % (Auto) 2.2 (0-8) % Baso % (Auto) 0.3 (0-1) % Immature Gran # (Auto) 0.03 10*3/UL Neut # (Auto) 4.74 10*3/UL Lymph # (Auto) 0.39 10*3/uL Gilchrist # (Auto) 0.95 H (0.3-0.8) 10*3/UL Eos # (Auto) 0.14 10*3/UL Baso # (Auto) 0.02 10*3/UL WBC Morphology Comment See comments (NORM) Plt Morphology Comment Normal morphology (NORM) RBC Morph Comment Normal morphology (NORM) Sodium 133 L (135-145) meq/L Potassium 4.8 (3.8-5.2) meq/L Chloride 100 (98-112) meq/L Carbon Dioxide 29 (23-33) meq/L Anion Gap 4 L (5-20) BUN 24 H (7-22) mg/dL Creatinine 0.8 (0.70-1.50) mg/dL Estimated GFR (>60 ml/min/1.73m(2)) BUN/Creatinine Ratio 30.00 H (6-20) Glucose 105 (78-110) mg/dL Calculated Osmolality 279.0 (267-292) mOsm/kg Calcium 8.9 (8.7-10.7) mg/dL Magnesium 2.0 (1.6-2.4) mg/dL Total Bilirubin 0.8 (0.3-1.2) mg/dL AST 51 (21-57) IU/L ALT 29 (21-72) IU/L Alkaline Phosphatase 77 (38-126) IU/L C-Reactive Protein 2.2 H (0.0-0.9) mg/dL Total Protein 5.4 L (6.1-8.0) g/dL Albumin 3.1 L (3.5-4.8) g/dL Globulin 2.3 L (2.50-4.10) g/dL Albumin/Globulin Ratio 1.30 (1.3-2.0) mg/g PSA Screen 60.2 H (0.006-4.00) ng/ml Ur Collection Type Clean catch urine Urine Color Yellow Urine Clarity Clear (CLEAR) Urine pH 5.5 (5.0-8.5) Ur Specific [place] 1.015 (1.005-1.030) Urine Protein Negative (NEG) mg/dl Urine Glucose (UA) Negative (NEG) mg/dL Urine Ketones Negative (NEG) Urine Occult Blood Negative (NEG) Urine Nitrate Negative (NEG) Urine Bilirubin Negative (NEG) Urine Urobilinogen 0.2 (0.2) EU/dL Ur Leukocyte Esterase Negative (NEG) Ur Culture Indicated? Culture not set 04/16/16 Range/Units 06:00 WBC 2.86 L (4.8-10.8) 10^3/uL RBC 3.44 L (4.70-6.10) 10^6/uL Hgb 10.8 L (14.0-18.0) g/dL Hct 32.2 L (42.0-52.0) % MCV 93.6 H (80-90) FL MCH 31.4 H (27-31) PG MCHC 33.5 (33-37) g/dL RDW Std Deviation 47.9 (39-50) fL RDW Coeff of Yasmine 14.6 H (11.5-14.5) % Plt Count 145 (140-350) 10*3/uL MPV 10.5 (7.4-12.2) FL Immature Gran % (Auto) (0-5) % Neut % (Auto) (50-80) % Lymph % (Auto) (10-50) % Gilchrist % (Auto) (5-15) % Eos % (Auto) (0-8) % Baso % (Auto) (0-1) % Immature Gran # (Auto) 10*3/UL Neut # (Auto) 10*3/UL Lymph # (Auto) 10*3/uL Gilchrist # (Auto) (0.3-0.8) 10*3/UL Eos # (Auto) 10*3/UL Baso # (Auto) 10*3/UL WBC Morphology Comment (NORM) Plt Morphology Comment (NORM) RBC Morph Comment (NORM) Sodium 137 (135-145) meq/L Potassium 4.3 (3.8-5.2) meq/L Chloride 107 (98-112) meq/L Carbon Dioxide 25 (23-33) meq/L Anion Gap 5 (5-20) BUN 15 (7-22) mg/dL Creatinine 0.6 L (0.70-1.50) mg/dL Estimated GFR Jacquard Plate Maker (>60 ml/min/1.73m(2)) BUN/Creatinine Ratio 25.00 H (6-20) Glucose 84 (78-110) mg/dL Calculated Osmolality 283.0 (267-292) mOsm/kg Calcium 8.4 L (8.7-10.7) mg/dL Magnesium (1.6-2.4) mg/dL Total Bilirubin (0.3-1.2) mg/dL AST (21-57) IU/L ALT (21-72) IU/L Alkaline Phosphatase (38-126) IU/L C-Reactive Protein (0.0-0.9) mg/dL Total Protein (6.1-8.0) g/dL Albumin (3.5-4.8) g/dL Globulin (2.50-4.10) g/dL Albumin/Globulin Ratio (1.3-2.0) mg/g PSA Screen (0.006-4.00) ng/ml Ur Collection Type Urine Color Urine Clarity (CLEAR) Urine pH (5.0-8.5) Ur Specific [place] (1.005-1.030) Urine Protein (NEG) mg/dl Urine Glucose (UA) (NEG) mg/dL Urine Ketones (NEG) Urine Occult Blood (NEG) Urine Nitrate (NEG) Urine Bilirubin (NEG) Urine Urobilinogen (0.2) EU/dL Ur Leukocyte Esterase (NEG) Ur Culture Indicated? Patient Problems - Patient Problem List (1) Compression fracture of L3 lumbar vertebra Current Visit: Yes Status: Acute (2) History of prostate cancer Current Visit: Yes Status: Acute (3) History of transient ischemic attack Current Visit: No Status: Chronic (4) Lumbosacral plexopathy Current Visit: Yes Status: Acute (5) Skin tear Current Visit: Yes Status: Acute (6) Elevated PSA Current Visit: Yes Status: Acute Comment: Given prior history of prostate cancer, with positive bone scan, likely this is metastatic prostate cancer.
== END 2016-04-17 16:33 | disposition home or self-care (01) | DRG 552 ==
LOC: ER 09:00 → MED/SURG 12:07
PROVIDERS: ADMIT Internal Medicine; ATTEND Internal Medicine
DX: S32.039A Unspecified fracture of third lumbar vertebra, initial encounter for closed fracture (principal); W18.39XA Other fall on same level, initial encounter; Z85.46 Personal history of malignant neoplasm of prostate; M89.9 Disorder of bone, unspecified; W18.30XA Fall on same level, unspecified, initial encounter; C61 Malignant neoplasm of prostate; R97.20 Elevated prostate specific antigen [PSA]; Z86.73 Personal history of transient ischemic attack (TIA), and cerebral infarction without residual deficits; G54.1 Lumbosacral plexus disorders
CPT/HCPCS: 36415; 72131; 72192; 78306; 80048; 80053; 81003; 83735; 85025; 85027; 86140; 94761; 96374; 97110; 97530; 97535; 99284; G0103; J1170; J1650; J1885; J2930; J7030; J7050

== ENCOUNTER 2016-04-21 16:18 | Inpatient (IN) | payer OTHER ==
[2016-04-21] MEDS ORDERED: NORMAL SALINE 10 ML SYRINGE FLUSH IVP PRN ×2 (16:49→20:09)
[2016-04-21] MEDS ORDERED: Sodium Chloride 0.9% 1,000 ML PRIMARY IV ONE (16:49)
[2016-04-21 17:18] LABS: BASOPHILS # (AUTO) 0.02 10*3/UL; BASOPHILS % (AUTO) 0.2 % (0-1); EOSINOPHILS % (AUTO) 0.9 % (0-8); HEMATOCRIT 34.5 % (42.0-52.0); HEMOGLOBIN 11.3 g/dL (14.0-18.0); IMM GRAN % (AUTO) 0.4 % (0-5); IMM GRAN# (AUTO) 0.03 10*3/UL; LYMPHOCYTES # (AUTO) 0.41 10*3/uL; LYMPHOCYTES % (AUTO) 4.9 % (10-50); MEAN CORPUSCULAR HGB CONC 32.8 g/dL (33-37); MEAN PLATELET VOLUME 10.2 FL (7.4-12.2); MONOCYTES # (AUTO) 1.37 10*3/UL (0.3-0.8); MONOCYTES % (AUTO) 16.2 % (5-15); NEUTROPHILS # (AUTO) 6.54 10*3/UL; NEUTROPHILS % (AUTO) 77.4 % (50-80); RDW COEFFICIENT OF VARIATION 14.9 % (11.5-14.5); RED BLOOD COUNT 3.64 10^6/uL (4.70-6.10); WHITE BLOOD COUNT 8.45 10^3/uL (4.8-10.8)
[2016-04-21 17:20] LABS: PLATELET MORPHOLOGY COMMENT NORMAL MORPHOLOGY (NORM)
[2016-04-21 17:26] LABS: BILIRUBIN,TOTAL 0.5 mg/dL (0.3-1.2); BUN/CREATININE RATIO 28.57 (6-20); CALCIUM 8.8 mg/dL (8.7-10.7); CREATININE 0.7 mg/dL (0.70-1.50); POTASSIUM 4.5 meq/L (3.8-5.2); TOTAL PROTEIN 5.5 g/dL (6.1-8.0)
--- NOTE | 2016-04-21 18:06 | DI ---
AP /LATERAL CHEST X-RAY, 04/21/2016 4:49 PM : Clinical History: Hypoxia. Right-sided chest pain. Previous Exam: 08/22/2014. There is no acute soft tissue or bony abnormality. Heart size is normal. There is a small right pleur al effusion and there is a curvilinear silhouette present in the right costophrenic angle. This may r epresent a "Acuna's hump" that is a sign that can be seen with pulmonary embolism with infarction. Mediastinal structures are normal. There are no pulmonary nodules. Readin. Small right pleural effusion. There may be a "Acuna's hump". This is a sign that can be seen wi th pulmonary embolism with infarction. 2. The remainder of the exam is normal.
--- NOTE | 2016-04-21 18:06 | DI ---
CT HEAD SCAN WITHOUT IV CONTRAST, 04/21/2016 5:03 PM : Clinical History: Stroke symptoms. Previous Exam: 12/21/2015. Scans are obtained from the foramen magnum to the vertex without IV contrast. The fourth ventricle is of normal size, shape, position and contour. The third and lateral ventricles are mildly dilated but are otherwise normal. There is no acute hemorrhagic infarct. No definite acut e bland infarct is identified. There are old lacunar infarcts in the right thalamus and deep to the l eft insula. There are old infarcts in both occipital lobes at the level of the occipital horns, and t hese would suggest branch occlusions. There is mild cerebellar and mild to moderate cerebral atrophy. There are no extracerebral mantles or shift of the midline structures. Bone window evaluation is nor mal. The paranasal sinuses are normal. READIN. There is no acute hemorrhagic or bland infarct. 2. There are bilateral old small lacunar infarcts representing small vessel disease. 3. There are old bilateral occipital lobe infarcts that suggest branch occlusions. 4. Mild cerebellar and mild to moderate cerebral atrophy.
[2016-04-21] MEDS ORDERED: SILVER SULFADIAZINE 1% 25 GM CREAM TOPICAL ONE (19:00)
--- NOTE | 2016-04-21 19:40 | DI ---
CT ANGIOGRAM OF THE CHEST, 04/21/2016 5:49 PM : Clinical History: Right-sided chest pain. Elevated D-dimer test. The patient had a chest x-ray earlie r today that was highly suggestive for right-sided pulmonary embolism with infarction. Previous Exam: None at this facility. Scans are performed from the base of the neck to the lower lung bases following IV administration of 70 mL of Isovue 300. Proprietary automated bolus tracking software was not used to verify the timing of the injection. There is a 10 mm nonfunctioning nodule in the lower pole of the left lobe of the thyroid gland. The b ase of the neck and thoracic inlet are otherwise normal. There are no abnormal axillary, supraclavicu lar, mediastinal, or hilar nodes. There is a small pericardial effusion. Faint scattered calcificatio ns are present in the LAD in the left circumflex artery. There is a small right pleural effusion. The re are pulmonary emboli present in branches to the right middle lobe with pulmonary infarction and vo lume loss. Similar changes are present in the right lower lobe although no clot can be identified wit h certainty. There is right lower lobe atelectasis. No clots are seen in the left lung. Both adrenal glands and the spleen are normal. There is a low-density lesion measuring approximately [address] in the anterior aspect of the right lobe of the liver near the junction with the left lobe. Simil ar smaller lesions are present in the lower posterior portion of the right lobe. These are consistent with metastatic foci. There is a sclerotic lesion in the posterior and right lateral aspect of T5 th at extends into the pedicle consistent with blastic metastasis. READIN. Pulmonary embolism with infarction involving the right middle lobe. There is a pleural-based dens ity with atelectasis in the right lower lobe but definite clots cannot be identified. However, this m ost likely also represents pulmonary embolism with infarction. There is a small right pleural effusio n. 2. Multiple low-density lesions are present in the liver consistent with metastatic disease. There i s a blastic lesion on the right side posteriorly of T5 consistent with metastatic prostate cancer. 3. Small pericardial effusion.
--- NOTE | 2016-04-21 19:47 | PDOC ---
General Adult HPI - General Chief Complaint: Neurological Complaints Stated Complaint: right sided chest pain, weakness Date Seen by Provider: 04/21/16 Time Seen by Provider: 16:25 Source: POSITIVE: Patient, Other (Sons) Exam Limitations: POSITIVE: No limitations Nurse's Notes Reviewed & Considered: Yes - History of Present Illness Initial Comment: The patient is an 81 year old male who is brought to the emergency room from home by his sons. For the past 4-5 days the patient has complained of pain to the right lower lateral thorax, especially with deep inspiration. Recent past medical history is significant in that 5 days ago he was discharged from the hospital after he fell and sustained a compression fracture of the third lumbar vertebra. Patient has a history of prostate cancer, diagnosed in 2013. Patient was admitted and bone scan at that time showed increased activity of the T4 pedicle, L3, L4 and L2 vertebral bodies and the left eighth and ninth ribs. PSA was elevated. Patient is also had some stroke symptoms in the past and is on Plavix for this. Emergency room nurses notes indicate that the patient told her that he felt like he may have some weakness on the right side of his body, however patient denies this to me. Have you received a tetanus shot in the past 10 years?: Yes Body Location Affected: REPORTS: Chest Timing: REPORTS: Abrupt, Constant Duration: >24 hours (3-4 days, worse around 4 AM today) Severity: Moderate Quality: REPORTS: "Pain", Sharpness Context: DENIES: None, Sitting, Standing, Activity, Emotional stress, Coughing, Recent Trauma, Recent Surgery, Sleep, Rest, Lifting, Turning, Bending, Fall, Near Fall, Other Modifying Factors: improves with: Other (Pain worse with deep inspiration). worse with: Nothing, Analgesics, Antacids, Breathing, Coughing, Defecating, Vomiting, Eating, Exercise, Lying down, Urinating, Palpation, Movement, Rest, Upright Position, Walking, Remaining Still Similar Symptoms Previously: No Recent Care Received: REPORTS: Recently Seen, Treated by MD, Hospitalized (As above) Any Prior Injuries Related to Current Complaint?: No - Patient Home Medications Home Medications: Home Medications Tamsulosin HCl [Flomax] 1 cap PO BID cap 07/16/14 Atorvastatin Calcium 1 tab PO DAILY #90 tab 10/02/15 Clopidogrel Bisulfate [Plavix] 1 tab PO DAILY #90 tab 10/02/15 Gabapentin 1 cap PO TID #90 cap 12/12/15 Docusate Sodium [Colace] 100 mg PO BID #60 cap 04/17/16 Hydrocodone/Acetaminophen [[place] 7.5-325 Tablet] 1 - 2 tab PO Q4H PRN #60 tab Lidocaine Patch 5% [Lidoderm Patch 5%] 700 mg TOPICAL DAILY #20 adh..patch 04/17 - Patient Allergies Allergies/Adverse Reactions: Allergies Allergy/AdvReac Type Severity Reaction Status Date / Time petrolatum, yellow Allergy Mild rash Verified 04/21/16 17:16 SCOTCH Allergy Mild RASH Uncoded 04/21/16 17:16 Past Medical History - heen HEENT History: Denies History, Hard of Hearing, Dentures/Partials Additional HEENT History: RECENT INFECTION RT EYE (SHINGLES) Cardiovascular History: Hypertension Respiratory History: Denies History Gastrointestinal History: Other (please comment) Additional Gastrointestinal History: HX BLOOD PER RECTUM/ CHANGE IN BOWEL HABITS Genitourinary History: Other (please comment) Additional Genitourinary History: NOCTURIA Endocrine History: Denies History Musculoskeletal History: Joint Pain, Other (please comment) Prosthesis or Implant: No Additional Musculoskeletal History: BONE CANCER Neurological History: TIA Blood Disorders: Denies History Psychiatric History: Denies History History of Sexually Transmitted Diseases: No Male Reproductive History: Denies History Cancer History: Skin, Other (please comment) Cancer Treatment / Date(s) of Treatment: REMOVALS In Past Year Been Physically Harmed or Verbally Threatened: No History of MDRO: No History of Other Communicable Diseases: No Tobacco Use: Never Smoker Alcohol Use: Occasionally Substance Use Type: None Previous Surgical History: Yes Type / Date of Surgery: COLONOSCOPY AND SKIN CA REMOVAL Anesthesia Reactions: No Malignant Hyperthermia: No Significant Family History: Heart disease, Renal disease Past Medical History Reviewed: Reviewed - No Changes ROS - Limitations ROS Limitations: No Limitations Constitution: REPORTS: Weakness Cardiovascular: REPORTS: Denies Cardiac Symptoms Respiratory: REPORTS: Hurts To Breathe, Shortness Of Breath Neurological: REPORTS: Denies Neuro Symptoms Gastrointestinal: REPORTS: Denies GI Symptoms Endocrine: REPORTS: Denies Symptoms Musculoskeletal: REPORTS: Denies MS Symptoms Genitourinary: REPORTS: Denies Symptoms Eyes: REPORTS: Denies Symptoms ENT: REPORTS: Denies Symptoms Skin: REPORTS: Denies Skin Symptoms Lympathic: REPORTS: Denies Lympathic Symptoms Immunologic: POSITIVE: Denies Symptoms Psychiatric: POSITIVE: Denies Psych Symptoms General Adult Exam - General Appearance General Appearance: POSITIVE: Alert, Cooperative, No Acute Distress, No Evidence of Trauma - HEENT HEENT: POSITIVE: Head Inspection Nml, Eyes Inspection Nml, Ears Inspection Nml, Nose Inspection Nml, Oral/Dental Inspect. Nml, Pharynx Inspect. Nml, PERRL, EOMI - Pupils Pupil Size: 4 mm: Bilateral (PERRLA) - Neck Neck: POSITIVE: Normal Inspection, Thyroid Normal - Respiratory Respiratory: POSITIVE: Rhonchi, See Diagram - Cardiovascular Cardiovascular: POSITIVE: Regular Rate & Rhythm, No Murmur, No Gallop, PMI Normal Peripheral Pulses: Radial (R): 2+, Radial (L): 2+ - Abdomen Abdomen: Soft: (All Quadrants), Normal Bowel Sounds: (All Quadrants), Denies Tenderness: (All Quadrants), No Splenomegaly: (All Quadrants), No Hepatomegaly: (All Quadrants), No Guarding: (All Quadrants), No Rebound: (All Quadrants), No Palpable Pulse: (All Quadrants), No Palpabale Mass: (All Quadrants), No Distention: (All Quadrants), No Rigidity: (All Quadrants) - Back Back: POSITIVE: Normal Inspection - Skin Skin: POSITIVE: Normal Color, Warm, Dry, No Rash - Extremities Extremity: Non-Tender: (All Extremities), Normal ROM: (All Extremities), Normal Inspection: (All Extremities), Edema / Swelling: (RLE), (LLE) (bilateral pedal edema) - Neurological / Psychological Neurological: POSITIVE: Oriented X3, 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 CTA chest shows pulmonary embolus and infarct, probably right middle lobe Lab Results Reviewed: Yes Lab Results:: Laboratory Results 04/21/16 Range/Units 17:09 WBC 8.45 (4.8-10.8) 10^3/uL RBC 3.64 L (4.70-6.10) 10^6/uL Hgb 11.3 L (14.0-18.0) g/dL Hct 34.5 L (42.0-52.0) % MCV 94.8 H (80-90) FL MCH 31.0 (27-31) PG MCHC 32.8 L (33-37) g/dL RDW Std Deviation 50.0 (39-50) fL RDW Coeff of Yasmine 14.9 H (11.5-14.5) % Plt Count 200 (140-350) 10*3/uL MPV 10.2 (7.4-12.2) FL Immature Gran % (Auto) 0.4 (0-5) % Neut % (Auto) 77.4 (50-80) % Lymph % (Auto) 4.9 L (10-50) % [place] % (Auto) 16.2 H (5-15) % Eos % (Auto) 0.9 (0-8) % Baso % (Auto) 0.2 (0-1) % Immature Gran # (Auto) 0.03 10*3/UL Neut # (Auto) 6.54 10*3/UL Lymph # (Auto) 0.41 10*3/uL Mobile # (Auto) 1.37 H (0.3-0.8) 10*3/UL Eos # (Auto) 0.08 10*3/UL Baso # (Auto) 0.02 10*3/UL WBC Morphology Comment Normal morphology (NORM) Plt Morphology Comment Normal morphology (NORM) RBC Morph Comment Normal morphology (NORM) D-Dimer 2.26 H (0.00-0.59) mg/L Sodium 133 L (135-145) meq/L Potassium 4.5 (3.8-5.2) meq/L Chloride 99 (98-112) meq/L Carbon Dioxide 28 (23-33) meq/L Anion Gap 6 (5-20) BUN 20 (7-22) mg/dL Creatinine 0.7 (0.70-1.50) mg/dL Estimated GFR (>60 ml/min/1.73m(2)) BUN/Creatinine Ratio 28.57 H (6-20) Glucose 126 H (78-110) mg/dL Calculated Osmolality 280.0 (267-292) mOsm/kg Calcium 8.8 (8.7-10.7) mg/dL Magnesium 2.0 (1.6-2.4) mg/dL Total Bilirubin 0.5 (0.3-1.2) mg/dL AST 15 L (21-57) IU/L ALT 28 (21-72) IU/L Alkaline Phosphatase 84 (38-126) IU/L NT-Pro-B Natriuret Pep 474 H (0-450) PG/ML Total Protein 5.5 L (6.1-8.0) g/dL Albumin 3.1 L (3.5-4.8) g/dL Globulin 2.4 L (2.50-4.10) g/dL Albumin/Globulin Ratio 1.20 L (1.3-2.0) mg/g - Patient's Progress Pain Medication Addressed: POSITIVE: Patient Refused School/Work Release Addressed: POSITIVE: Not Applicable Re-Examine Time: 19:07 Re-Examine Comment: Patient saturations 85-87% on room air; on supplemental oxygen saturations 95%. Diagnosis discussed with patient and his sons; then discussed with hospitalist. Patient admitted for further evaluation and treatment. Status: POSITIVE: Unchanged, Re-Examined Antibiotics Given: No - Consult Consult (If Yes, Name of Consulting MD & Time Called): Yes (Dr. Van, hospitalist ,[id number]) Consulting MD will see pt:: [place]ITIVE[place] [facility] [place] Counseled: POSITIVE: Patient, Family, RE: Lab Results, RE: Radiology Results, RE : DX, RE: Need for F/U Patient Care Time - Estimated PCT Patient Care Time (In Minutes): 50 Vital Signs - Recent Vital Signs Vital Signs: Vital Signs (Last 8 hours) Temp Pulse Resp BP Pulse Ox 04/21/16 16:41 97.2 F 82 20 113/73 87 - VS Reviewed Vital Signs Reviewed: Yes Discharge Clinical Impression: Pulmonary embolism with infarction Discharge Disposition: Admit to Inpatient Condition: Fair Date Decision to Admit to Inpatient: 04/21/16 Time Decision to Admit to Inpatient: 19:00
[2016-04-21] MEDS ORDERED: ONDANSETRON 4 MG/2 ML VIAL IVP PRN (20:09)
[2016-04-21] MEDS: ENOXAPARIN SODIUM 60 MG/0.6 ML SYRINGE SUBCUT SCH (20:37)
--- NOTE | 2016-04-21 21:04 | PDOC ---
History and Physical - History of Present Illness Date and Time of Service: 04/21/2016, 2100 Chief Complaint: Right-sided low chest pain. History of Present Illness: This very pleasant 81-year-old male with known metastatic prostate cancer with a recent compression fracture admission. He was just discharged on the . He states that he had sudden onset of lower right-sided chest pain, laterally located, and that started yesterday. He came in for evaluation today as the pain was quite unbearable. He was found to have a pulmonary embolism with pulmonary infarct. He is never had a blood clot before. He is on oxygen and was satting 87% on room air. He did not have any evidence of hypotension or right heart strain. He tells me again that he is not interested in doing any Lupron therapy or other treatments for his metastatic prostate cancer. Unfortunately, the CT scan of the chest also revealed lesions in the liver consistent with metastatic disease. We gave him his first shot of Lovenox on the floor and taught him how to do the shots. Past Medical History Medical History: 1. prostate cancer with previous radiation treatment, now with known metastatic lesions. 2. Hypertension. 3. Shingles affected the eyes. 4. Neuropathy, treated with IV Solu-Medrol, treatments complete. 5. History of TIAs Surgical History: 1. History of skin cancer with previous surgery. 2. Radiation therapy for prostate cancer. 3. Colonoscopy in 2010. Pertinent Family History: Father in his 80s with heart disease. Mother had an accidental overdose. He has a sister that had MS. Past Social History: He doesn't smoke but he chews, doesn't drink, no drugs. He lives with his . Since he had this problem with his the legs is more using wheelchair for mobility. Tobacco Use: Never Smoker Substance Use Type: None Alcohol Use: None Medication / Allergies Home Medications: Home Medications Medication Instructions Recorded Confirmed Type Tamsulosin HCl [Flomax] 1 cap PO BID cap 07/16/14 04/21/16 History Atorvastatin Calcium 1 tab PO DAILY #90 tab 10/02/15 04/21/16 Clinic Clopidogrel Bisulfate [Plavix] 1 tab PO DAILY #90 tab 10/02/15 04/21/16 Clinic Gabapentin 1 cap PO TID #90 cap 12/12/15 04/21/16 Clinic Docusate Sodium [Colace] 100 mg PO BID #60 cap 04/17/16 04/21/16 Rx Hydrocodone/Acetaminophen [[place] 1 - 2 tab PO Q4H PRN #60 tab 04/17/16 04/21/16 Rx 7.5-325 Tablet] Lidocaine Patch 5% [Lidoderm Patch 700 mg TOPICAL DAILY #20 adh..patch 04/17/16 04/21/16 Rx 5%] Allergies/Adverse Reactions: Allergies Allergy/AdvReac Type Severity Reaction Status Date / Time petrolatum, yellow Allergy Mild rash Verified 04/21/16 17:16 SCOTCH Allergy Mild RASH Uncoded 04/21/16 17:16 Review of Systems - Constitutional Constitutional: REPORTS: Weight Loss (15 pounds in the past year.), Fatigue, Weakness - Integumentary Integumentary: REPORTS: Superficial Wound, Other (Has a burn on his arm because he fell asleep on a heating pad. Silvadene cream applied in the emergency room. ) - Eye Exam Eye Exam: REPORTS: Other (Had herpes zoster with ophthalmic involvement.) - Mouth/Throat Mouth/Throat Exam: REPORTS: Oral Ulcers - Respiratory Respiratory: REPORTS: Pleuritic Pain - Cardiovascular Cardiovascular: REPORTS: Negative System Review - Gastrointestinal Gastrointestinal / Abdominal: REPORTS: Negative System Review - Genitourinary Genitourinary: REPORTS: Hesitant [place] - Musculoskeletal Musculoskeletal: REPORTS: Back Pain (Recent noted compression fracture and metastatic lesions related to prostate cancer.) - Hematlogic / Lymphatic Hematologic / Lymphatic: REPORTS: Easy Bleeding/Bruising (On Plavix) - Neurological Neurologic: REPORTS: Weakness, Difficulty Walking, Other (Had recent neurologic problems or extremities that required steroid treatment and is completed that but still was not walking very well.) Exam - Vitals Vital Signs: Vital Signs Weight 124 lb 12.8 oz Vital Signs - Last Taken Temperature 97.2 F 04/21/16 16:41 Pulse Rate 82 04/21/16 16:41 Respiratory Rate 20 04/21/16 16:41 Blood Pressure 113/73 04/21/16 16:41 Pulse Ox 87 04/21/16 16:41 On room air. Currently on 2 L per nasal cannula. - General General Appearance: POSITIVE: No Acute Distress, Cooperative - Head Head Exam: POSITIVE: Normal Inspection, Normocephalic, Atraumatic - Eye Eye Exam: POSITIVE: No Scleral Icterus - ENT ENT Exam: POSITIVE: Mucous Membranes Dry - Neck Neck Exam: POSITIVE: Normal Inspection - Respiratory Respiratory Exam: POSITIVE: Breathing Non Labored, Decreased Breath Sounds (In the bases. Right greater than left) - Cardiovascular Cardiovascular Exam: POSITIVE: RRR, No Murmur, No Clicks, No Gallops, No Rubs, No JVD - GI/Abdominal GI/Abdominal Exam: POSITIVE: Normal Bowel Sounds, Non Tender, Non Distended, Soft - Rectal Rectal Exam: POSITIVE: Deferred - External Exam: POSITIVE: Deferred Exam: POSITIVE: Deferred - Extremities Extremities Exam: POSITIVE: No Clubbing Present, No Edema Present, No Cyanosis Present - Back Back Exam: POSITIVE: No CVA Tenderness - Neurological Neurological Exam: POSITIVE: Alert, Oriented x 3, No Facial Droop, Speech Intact / Clear, Moves All Extremities Equally - Psychiatric Psychiatric Exam: POSITIVE: Normal Affect, Normal Mood - Integumentary Integumentary Exam: POSITIVE: Normal Color, Warm, Dry, Intact Additional Integumentary Exam Details: Head wound dressed in emergency room with a burn. Silvadene cream was applied. We'll redress tomorrow. Results - Labs CBC and BMP: 04/21/16 17:09 04/21/16 17:09 Labs - Last 24 Hours: Laboratory Results 04/21/16 Range/Units 17:09 WBC 8.45 (4.8-10.8) 10^3/uL RBC 3.64 L (4.70-6.10) 10^6/uL Hgb 11.3 L (14.0-18.0) g/dL Hct 34.5 L (42.0-52.0) % MCV 94.8 H (80-90) FL MCH 31.0 (27-31) PG MCHC 32.8 L (33-37) g/dL RDW Std Deviation 50.0 (39-50) fL RDW Coeff of Yasmine 14.9 H (11.5-14.5) % Plt Count 200 (140-350) 10*3/uL MPV 10.2 (7.4-12.2) FL Immature Gran % (Auto) 0.4 (0-5) % Neut % (Auto) 77.4 (50-80) % Lymph % (Auto) 4.9 L (10-50) % [place] % (Auto) 16.2 H (5-15) % Eos % (Auto) 0.9 (0-8) % Baso % (Auto) 0.2 (0-1) % Immature Gran # (Auto) 0.03 10*3/UL Neut # (Auto) 6.54 10*3/UL Lymph # (Auto) 0.41 10*3/uL [place] # (Auto) 1.37 H (0.3-0.8) 10*3/UL Eos # (Auto) 0.08 10*3/UL Baso # (Auto) 0.02 10*3/UL WBC Morphology Comment Normal morphology (NORM) Plt Morphology Comment Normal morphology (NORM) RBC Morph Comment Normal morphology (NORM) D-Dimer 2.26 H (0.00-0.59) mg/L Sodium 133 L (135-145) meq/L Potassium 4.5 (3.8-5.2) meq/L Chloride 99 (98-112) meq/L Carbon Dioxide 28 (23-33) meq/L Anion Gap 6 (5-20) BUN 20 (7-22) mg/dL Creatinine 0.7 (0.70-1.50) mg/dL Estimated GFR (>60 ml/min/1.73m(2)) BUN/Creatinine Ratio 28.57 H (6-20) Glucose 126 H (78-110) mg/dL Calculated Osmolality 280.0 (267-292) mOsm/kg Calcium 8.8 (8.7-10.7) mg/dL Magnesium 2.0 (1.6-2.4) mg/dL Total Bilirubin 0.5 (0.3-1.2) mg/dL AST 15 L (21-57) IU/L ALT 28 (21-72) IU/L Alkaline Phosphatase 84 (38-126) IU/L NT-Pro-B Natriuret Pep 474 H (0-450) PG/ML Total Protein 5.5 L (6.1-8.0) g/dL Albumin 3.1 L (3.5-4.8) g/dL Globulin 2.4 L (2.50-4.10) g/dL Albumin/Globulin Ratio 1.20 L (1.3-2.0) mg/g - Imaging Status: Image Reviewed by Me (Chest x-ray, on my view, appears to have an increased opacity on the right diaphragm. Was consistent with Acuna's hump. Likely pulmonary emboli, there is a pleural effusion on my view as well. CT scan of the chest showed a pleural effusion and pulmonary embolism on the right. 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 Current Visit: Yes Status: Acute (3) Compression fracture of L3 lumbar vertebra Current Visit: Yes Status: Acute (4) Lumbosacral plexopathy Current Visit: Yes Status: Acute (5) History of transient ischemic attack Current Visit: No Status: Chronic (6) Liver metastasis Current Visit: Yes Status: Acute (7) Hypertension Current Visit: Yes Status: Acute Qualifiers: Hypertension type: essential hypertension Qualified Description: Essential hypertension Qualifier Code(s): (I10) Essential (primary) hypertension - Assessment / Plan Additional Assessment/Plan Details: The patient has a PESI score of 4, with a mortality of 4-11% within 30 days. He meets admission criteria for inpatient admission for this diagnosis. The mainstay of therapy for him should be Lovenox 1 mg/kg twice a day for at least the first 90 days, but he may not be able to do Lovenox based on tolerance, age , worsening functional status at home, decreased ability to walk, weight loss, and metastatic prostate cancer. The patient wants to think about this overnight , but we did do a shot of Lovenox at the bedside tonight on the floor and thought the patient had a do shots as well. He will think about it and let us know if this is what he wants to do on the long-term. If not, I think we need to treat with eliquis twice a day. Pain control for the pulmonary infarction with pleuritic pain. Patient is on hydrocodone will continue that. We'll also write for some Dilaudid if he needs it. I would like to avoid anti-inflammatories if possible as patient is already on Plavix and now will require indefinite anticoagulation. Overall prognosis is guarded especially with liver metastases, bone metastases, and a patient that does not want any further treatment for his prostate cancer. I recommended hospice for consideration. We will get a consult. Patient is DO NOT RESUSCITATE DO NOT INTUBATE, we discussed some bedside. Plan above was discussed with the patient and his son and they agreed. Additionally, the patient will be bladder scanned and if retaining we may offer Adams catheterization.
[2016-04-21] MEDS ORDERED: HYDROmorphone 2 MG/1 ML IVP PRN (21:13)
[2016-04-21] MEDS: ATORVASTATIN 20 MG TABLET PO SCH (21:21)
[2016-04-21] MEDS: TAMSULOSIN 0.4 MG CAPSULE PO SCH (21:21)
[2016-04-21] MEDS: DOCUSATE 100 MG CAPSULE PO SCH (21:21)
[2016-04-21] MEDS: GABAPENTIN 300 MG CAPSULE PO SCH (21:21)
--- NOTE | 2016-04-21 22:13 | EKG ---
[address] [address] Measurements Intervals [place] Rate: 95 P: 76 MN: 159 QRS: 19 QRSD: 157 T: 133 QT: 381 QTc: 433 Interpretive Statements SINUS RHYTHM LEFT BUNDLE BRANCH BLOCK Compared to ECG 12/21/2015 10:59:54 Short MN interval no longer present Electronically Signed On 04-22-16 12:34:45 MST by Deonte Hogue [email or web address]
[2016-04-22] MEDS: Patch Removal PATCH TRANSDERM SCH ×2 (00:11→20:24)
[2016-04-22] MEDS: HYDROcodone-APAP 7.5 MG-325 MG TABLET PO PRN ×3 (02:36→14:14)
[2016-04-22 06:24] LABS: BASOPHILS # (AUTO) 0.01 10*3/UL; BASOPHILS % (AUTO) 0.2 % (0-1); EOSINOPHILS % (AUTO) 1.5 % (0-8); HEMATOCRIT 33.2 % (42.0-52.0); HEMOGLOBIN 10.9 g/dL (14.0-18.0); IMM GRAN % (AUTO) 0.3 % (0-5); IMM GRAN# (AUTO) 0.02 10*3/UL; LYMPHOCYTES # (AUTO) 0.32 10*3/uL; LYMPHOCYTES % (AUTO) 5.3 % (10-50); MEAN CORPUSCULAR HEMOGLOBIN 31.1 PG (27-31); MEAN CORPUSCULAR HGB CONC 32.8 g/dL (33-37); MEAN PLATELET VOLUME 10.5 FL (7.4-12.2); MONOCYTES % (AUTO) 16.6 % (5-15); NEUTROPHILS # (AUTO) 4.58 10*3/UL; NEUTROPHILS % (AUTO) 76.1 % (50-80); RDW COEFFICIENT OF VARIATION 14.9 % (11.5-14.5); RED BLOOD COUNT 3.51 10^6/uL (4.70-6.10); WHITE BLOOD COUNT 6.02 10^3/uL (4.8-10.8)
[2016-04-22 06:51] LABS: PLATELET MORPHOLOGY COMMENT NORMAL MORPHOLOGY (NORM)
[2016-04-22] MEDS: DOCUSATE 100 MG CAPSULE PO SCH ×2 (08:32→20:22)
[2016-04-22] MEDS: GABAPENTIN 300 MG CAPSULE PO SCH ×3 (08:32→20:23)
[2016-04-22] MEDS: CLOPIDOGREL 75 MG TABLET PO SCH (08:32)
[2016-04-22] MEDS: TAMSULOSIN 0.4 MG CAPSULE PO SCH ×2 (08:32→20:23)
[2016-04-22] MEDS: ENOXAPARIN SODIUM 60 MG/0.6 ML SYRINGE SUBCUT SCH ×2 (08:33→20:22)
[2016-04-22] MEDS: SILVER SULFADIAZINE 1% 25 GM CREAM TOPICAL SCH ×2 (08:34→20:27)
[2016-04-22] MEDS: LIDOCAINE 700 MG PATCH TOPICAL SCH (08:34)
--- NOTE | 2016-04-22 11:56 | PDOC(PROG) ---
Date and Time of Service: 04/22/2016, 1157 Interval History: still has pleuritic pain. eating okay. not sure if he wants to do shots jail or not. Hospice consult pending. Objective : Data - Labs CBC and BMP: 04/22/16 05:50 04/21/16 17:09 Labs - Last 24 Hours: Laboratory Results 04/22/16 Range/Units 05:50 WBC 6.02 (4.8-10.8) 10^3/uL RBC 3.51 L (4.70-6.10) 10^6/uL Hgb 10.9 L (14.0-18.0) g/dL Hct 33.2 L (42.0-52.0) % MCV 94.6 H (80-90) FL MCH 31.1 H (27-31) PG MCHC 32.8 L (33-37) g/dL RDW Std Deviation 49.3 (39-50) fL RDW Coeff of Yasmine 14.9 H (11.5-14.5) % Plt Count 199 (140-350) 10*3/uL MPV 10.5 (7.4-12.2) FL Immature Gran % (Auto) 0.3 (0-5) % Neut % (Auto) 76.1 (50-80) % Lymph % (Auto) 5.3 L (10-50) % [place] % (Auto) 16.6 H (5-15) % Eos % (Auto) 1.5 (0-8) % Baso % (Auto) 0.2 (0-1) % Immature Gran # (Auto) 0.02 10*3/UL Neut # (Auto) 4.58 10*3/UL Lymph # (Auto) 0.32 10*3/uL [place] # (Auto) 1.00 H (0.3-0.8) 10*3/UL Eos # (Auto) 0.09 10*3/UL Baso # (Auto) 0.01 10*3/UL WBC Morphology Comment Normal morphology (NORM) Plt Morphology Comment Normal morphology (NORM) RBC Morph Comment Normal morphology (NORM) Objective : Exam - General General Appearance: No Acute Distress, Cooperative Additional General Exam Details: Vital Signs - Last Taken Temperature 97.5 F 04/22/16 07:55 Pulse Rate 95 04/22/16 07:55 Respiratory Rate 22 04/22/16 07:55 Blood Pressure 101/60 04/22/16 07:55 Pulse Ox 92 04/22/16 07:55 on 2 LPM oxygen - Head Head Exam: Normal Inspection, Normocephalic, Atraumatic - Eye Eye Exam: No Scleral Icterus - Respiratory Respiratory Exam: Breathing Non Labored, Decreased Breath Sounds - Cardiovascular Cardiovascular Exam: RRR, No Murmur, No Clicks, No Gallops, No Rubs, No JVD - GI/Abdominal GI/Abdominal Exam: Normal Bowel Sounds, Non Tender, Non Distended, Soft - Extremities Extremities Exam: No Clubbing Present, No Edema Present (trace lower extremity edema noted, right > left), No Cyanosis Present 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 Current Visit: Yes Status: Acute (3) Compression fracture of L3 lumbar vertebra Current Visit: Yes Status: Acute (4) Lumbosacral plexopathy Current Visit: Yes Status: Acute (5) History of transient ischemic attack Current Visit: No Status: Chronic (6) Liver metastasis Current Visit: Yes Status: Acute (7) Hypertension Current Visit: Yes Status: Acute Qualifiers: Hypertension type: essential hypertension Qualified Description: Essential hypertension Qualifier Code(s): (I10) Essential (primary) hypertension - Assessment / Plan Additional Assessment/Plan Details: will stop telemetry monitoring. no sign of right heart failure continue oxygen, lovenox hospice evaluation pain control with hydrocodone and PRN dilaudid to help with pain. discussed with patient. will check how hospice eval and consult went.
[2016-04-22] MEDS: HYDROcodone-APAP 7.5 MG-325 MG TABLET PO SCH ×2 (18:50→22:23)
[2016-04-22] MEDS: ATORVASTATIN 20 MG TABLET PO SCH (20:22)
[2016-04-23] MEDS: HYDROcodone-APAP 7.5 MG-325 MG TABLET PO SCH ×7 (02:41→21:46)
[2016-04-23] MEDS: TAMSULOSIN 0.4 MG CAPSULE PO SCH ×2 (09:40→20:20)
[2016-04-23] MEDS: CLOPIDOGREL 75 MG TABLET PO SCH (09:40)
[2016-04-23] MEDS: DOCUSATE 100 MG CAPSULE PO SCH ×2 (09:40→20:20)
[2016-04-23] MEDS: GABAPENTIN 300 MG CAPSULE PO SCH ×3 (09:40→20:20)
[2016-04-23] MEDS: LIDOCAINE 700 MG PATCH TOPICAL SCH (09:40)
[2016-04-23] MEDS: SILVER SULFADIAZINE 1% 25 GM CREAM TOPICAL SCH ×2 (09:40→20:26)
[2016-04-23] MEDS: ENOXAPARIN SODIUM 60 MG/0.6 ML SYRINGE SUBCUT SCH ×2 (09:40→20:20)
--- NOTE | 2016-04-23 11:37 | PDOC(PROG) ---
Date and Time of Service: 04/23/2016, 1135 Interval History: Feels better today. Wants to stay on Lovenox shots for any time remaining in the hospital. He still considering hospice but has not made a decision at this time he does want to try therapy to see if it can strengthen him. No nausea or vomiting and no chest pain. Objective : Data - Labs CBC and BMP: 04/22/16 05:50 04/21/16 17:09 Objective : Exam - General General Appearance: No Acute Distress, Cooperative Additional General Exam Details: Vital Signs - Last Taken Temperature 98.2 F 04/23/16 08:01 Pulse Rate 72 04/23/16 08:01 Respiratory Rate 18 04/23/16 08:01 Blood Pressure 100/49 04/23/16 08:01 Pulse Ox 90 04/23/16 08:01 - Eye Eye Exam: No Scleral Icterus - Respiratory Respiratory Exam: Clear to Auscultation - Bilaterally, Breathing Non Labored - Cardiovascular Cardiovascular Exam: RRR, No Murmur, No Clicks, No Gallops, No Rubs, No JVD - GI/Abdominal GI/Abdominal Exam: Normal Bowel Sounds, Non Tender, Non Distended, Soft - Extremities Extremities Exam: No Clubbing Present, No Edema Present, No Cyanosis Present Additional Extremities Exam Details: Edema has decreased today. 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 Current Visit: Yes Status: Acute (3) Compression fracture of L3 lumbar vertebra Current Visit: Yes Status: Acute (4) Lumbosacral plexopathy Current Visit: Yes Status: Acute (5) History of transient ischemic attack Current Visit: No Status: Chronic (6) Liver metastasis Current Visit: Yes Status: Acute (7) Hypertension Current Visit: Yes Status: Acute Qualifiers: Hypertension type: essential hypertension Qualified Description: Essential hypertension Qualifier Code(s): (I10) Essential (primary) hypertension - Assessment / Plan Additional Assessment/Plan Details: For now, family is still considering options regarding hospice. They're not ready to make a decision today. The patient would like physical therapy and occupational therapy so we will order that. It may be that for weakness and deconditioning, we will try a swing bed for therapy and continued monitoring of medications, as the patient is at high risk for bleeding on both Plavix and DVT/PE treatment. We will continue with Lovenox for now.
[2016-04-23] MEDS ORDERED: Sodium Chloride 0.9% 1,000 ML IV ONE (12:55)
[2016-04-23] MEDS ORDERED: Sodium Chloride 0.9% 1,000 ML ONE (13:20)
[2016-04-23] MEDS: ATORVASTATIN 20 MG TABLET PO SCH (20:20)
[2016-04-23] MEDS: Patch Removal PATCH TRANSDERM SCH (20:26)
[2016-04-24] MEDS: HYDROcodone-APAP 7.5 MG-325 MG TABLET PO SCH ×6 (02:39→22:44)
[2016-04-24] MEDS: DOCUSATE 100 MG CAPSULE PO SCH ×2 (08:46→20:24)
[2016-04-24] MEDS: LIDOCAINE 700 MG PATCH TOPICAL SCH (08:47)
[2016-04-24] MEDS: GABAPENTIN 300 MG CAPSULE PO SCH ×3 (08:47→20:24)
[2016-04-24] MEDS: CLOPIDOGREL 75 MG TABLET PO SCH (08:47)
[2016-04-24] MEDS: ENOXAPARIN SODIUM 60 MG/0.6 ML SYRINGE SUBCUT SCH ×2 (08:47→20:24)
[2016-04-24] MEDS: TAMSULOSIN 0.4 MG CAPSULE PO SCH ×2 (08:47→20:24)
[2016-04-24] MEDS: SILVER SULFADIAZINE 1% 25 GM CREAM TOPICAL SCH ×2 (08:48→20:24)
--- NOTE | 2016-04-24 10:36 | PT.PROG ---
Progress Note Progress Note: S: Kiko appears to be in good spirits today. Kiko is not able to do as much today as yesterday due to weakness and poor endurance. O: Treatment consisted of: ambulation x 30 feet with walker and assist x 1, 11 minutes on nustep for cardiovascular work to improve endurance, seated alternating marching and LAQ with 1# weights on bilateral l/e's x 15; ambulation x 15 feet. A: Kiko tolerated program fair - no able to ambulate as far this AM as yesterday. Poor endurance and weakness. P: Continue per POC.
--- NOTE | 2016-04-24 13:47 | PDOC(PROG) ---
Interval History: Doing well has no complaints no pain Objective : Data - Labs CBC and BMP: 04/22/16 05:50 04/21/16 17:09 Objective : Exam - General General Appearance: Cooperative - Respiratory Respiratory Exam: Clear to Auscultation - Bilaterally, Breathing Non Labored, Normal To Percussion - Cardiovascular Cardiovascular Exam: RRR, No Murmur, No Clicks, No Gallops - Extremities Extremities Exam: Normal Inspection, No Clubbing Present, No Edema Present Assessment and Plan - Patient Problems (1) Compression fracture of L3 lumbar vertebra Current Visit: Yes Status: Acute (2) Hypertension Current Visit: Yes Status: Acute Qualifiers: Hypertension type: essential hypertension Qualified Description: Essential hypertension Qualifier Code(s): (I10) Essential (primary) hypertension (3) Liver metastasis Current Visit: Yes Status: Acute (4) Prostate cancer metastatic to bone Current Visit: Yes Status: Acute (5) Pulmonary embolism and infarction Current Visit: Yes Status: Acute (6) Transient ischemic attack Current Visit: No Status: Acute - Assessment / Plan Additional Assessment/Plan Details: #1 Metastatic prostate cancer The patient has opted for no therapy in regards to his metastatic prostate cancer he has not decided about hospice at present time he does want to try to improve his stamina and try occupational and physical therapy for a while. #2 generalized weaknessPTOT #3 pulmonary embolus treat with Lovenox he is also on Plavix we will monitor closely
--- NOTE | 2016-04-24 15:02 | PTI REPORT ---
Thank you for the referral of Adriano Faye. He was seen on 04/23/16 for an inpatient evaluation secondary to weakness. SUBJECTIVE: The patient is an 81-year-old male. At the time of the evaluation the patient' s daughter was present. According to the daughter, the patient is back in the hospital following being discharged on the of this month. She reports that his prostate cancer has spread but the patient continues to refuse any types of treatment for it. She reports most recently he has suffered a pulmonary embolism. The daughter also reports that the plan for now is to have the patient be placed on swingbed status when eligible throughout calving season and as soon as calving season is over they will send him home on hospice. PAST MEDICAL HISTORY: Past medical history can be found in the patient's medical record. OBJECTIVE FINDINGS: Pain: The patient reports having "a little bit of pain". He was unable to rate it on the verbal analog scale (0=no pain, 10=worst pain) at this time. Range of motion/Strength: His bilateral lower extremity range of motion is within functional limits with strength in his right leg 30% greater than his left. Bed mobility: The patient was able to perform bed mobility from supine to edge of bed with stand by assist. Ambulation: The patient was able to ambulate continuously with front wheeled walker, gait belt, and contact guard assistance approximately 15 feet before requiring a wheelchair. Transfers: He was able to maneuver three feet from his wheelchair to a chair but required verbal cues for propre hand placement and lower extremity placement for seating. Wound: The patient also presents with a wound on his right posterior lateral abdomen. The patient reports that he burned himself on a heating pad while at home and the area has irregular borders and is superficial at this time and measures 22 centimeters x 17 centimeters with a scant amount of drainage at this time. *Please see occupational therapy note for details about dressing, upper extremity strength, and range of motion. ASSESSMENT: Problem List: Decreased endurance Decreased safety awareness with assistive device Decreased transfers Physical Therapy Goals: To be met by discharge from inpatient: Patient will be able to ambulate up to 100 feet with standing rest breaks with appropriate assistive device for household ambulation. Patient will increase his ability to perform all transfers with stand by assistance only. TREATMENT PLAN: Patient will be seen B.I.D during the week and one time per day over the weekend as an inpatient to address the above goals and objectives. INITIAL TREATMENT: Treatment today consisted of the initial evaluation followed by the patient performing bed mobility from supine to edge of bed with min assist followed by ambulating 15 feet within his room out to the tucker with front wheeled walker, gait belt, and contact guard to min assist, specifically for verbal cues for safety awareness with the use of assistive device. He also received dressing change to his wound with 6X6 Mepilex and triple antibiotic ointment. The patient was placed in his chair in preparation for lunch and will participate with extra activities down in the physical therapy gym this afternoon. ARABELLA
--- NOTE | 2016-04-24 15:52 | OTI REPORT ---
Thank you for the referral of Adriano Faye. He was seen on 04/23/16 for an occupational therapy inpatient evaluation secondary to weakness. SUBJECTIVE: The patient is an 81-year-old male who is being seen secondary to having a right pulmonary embolism, decreased function at home, and decreased ability to perform his ADLs. Upon his initial admission a couple weeks ago, the patient had left the hospital being able to ambulate for quite a long distance. He was able to dress himself independently and was able to complete toileting and hygiene independently. The patient fell a couple of days ago and ended up with an L3 compression fracture. PAST MEDICAL HISTORY: Past medical history can be found in the patient's medical record. OBJECTIVE FINDINGS: General observations: The patient was alert and oriented to name, month, and year. He would more than likely benefit from some further cognitive testing. The patient reports that he is swallowing and eating well. Bed mobility: The patient was able to come from supine to sit with min assist. Activities of daily living: While sitting edge of bed he needed min assist to don right sock. He was dependent with the left sock. His family member was present today and she states that he typically is dressing himself but the last three days he has not been able to do so and his function has declined quite tremendously. When dressing lower extremities, the patient requires mod assist for balance. The patient was independent dressing upper extremities after set up. Pain: The patient rates his pain in his low back as a 5/10 on the verbal analog scale (0=no pain, 10=worst pain). Range of motion: Upper extremity range of motion is 0 to 110 degrees for shoulder flexion. Elbow flexion/extension is within normal limits. Wrist range of motion is 0 to 40 degrees in flexion/extension. Strength: Strength in the shoulders is 3+/5 within the range that he has for flexion/abduction. Elbow flexion/extension is 4/5. Wrist flexion/extension is 4/5. Endurance: The patient does fatigue quite easily. He is demonstrating fair to poor activity tolerance. He needed frequent breaks with activity. Ambulation: The patient requires mod assist when ambulating. He fatigues quite easily and states that he has "weak legs". ASSESSMENT: At this time the patient would benefit from skilled occupational therapy to address improving his abilities with ADLs, functional transfers, and safety and independence to return home. The patient's goal is to return home at some point ; he will more than likely need to be on a swingbed status at some point as it is anticipated that he will need more skilled care after his acute stay. Short-Term Goals: To be met by discharge from inpatient: Patient will be able to don upper extremity clothing independently after set up. Patient will be able to don lower extremity clothing with or without adaptive equipment with contact guard assist. Patient will improve upper extremity strength to 4+/5 in all planes to improve strength for functional activities and ADLs. Patient will be able to complete a shower with stand by assist including transfers and washing all body parts 100% of the time. Patient will be able to complete a toilet transfer and toilet hygiene with stand by assist. Patient will complete the MOCA and CPT to see where he is cognitively and with his processing abilities. Long-Term Goals: To be met following discharge from inpatient: Patient will be discharged to home, demonstrating safety and independence with all ADLs and functional transfers 100% of the time. TREATMENT PLAN: Patient will be seen B.I.D during the week and one time per day over the weekend as an inpatient to address the above goals and objectives. INITIAL TREATMENT: Treatment today consisted of the initial evaluation followed by the patient completing dressing activities while sitting edge of bed. He was able to doff shirt with stand by assist for balance and don shirt with stand by assist after set up. The patient was able to don right sock with min assist and was dependent with donning left sock. He needed min assist to come from sit to stand. With functional transfers, the patient requires mod assist for balance and does fatigue quite easily. MTDD
--- NOTE | 2016-04-24 16:05 | OT PM DAY ---
Diagnosis : Weakness PM - Occupational Therapy S: Patient states that his left leg appears to want to give out at times. Other than that he says he is ready for therapy, but has to go to that bathroom first. O: Patient was seen in his room and was in a supine position, he needed min assistance to go from supine to edge of bed. Patient stood and transferred 12 to 15 feet to the restroom, with contact guard assist. He was assisted with his lower extremity garments in preparation for toileting. Patient then needed min assist to complete sit to stand transfer from toilet, and then transferred to sink where he washed hands independently. Patient transferred approximately 60 ft before he was then transferred the rest of the way to therapy in a wheelchair. PT took over treatment, but OT did assist PT with returning him to his room. He was left in a supine position with call light within reach. A: Patient will continue to benefit from therapy to increase his activity tolerance. He would benefit from a high rise toilet seat to assist with being able to complete toileting, making it much easier. It was checked on post treatment and nursing had brought him in a high rise toilet seat. P: Continue seeing patient BID during the week and one time per day over the weekend for upper extremity strengthening, ADL's, and overall functional mobility. Patient may possibly go swing. ARABELLA
--- NOTE | 2016-04-24 16:40 | OT.PROG ---
Progress Note Progress Note: S: pt stated he was ready for therapy and that he did sleep most through the night. He did report going to restroom with nursing and falling to knees. O: pt was seen in his room in the a.m. He completed bed mobility with mod Ind as it took him longer to complete. Once On EOB he completed transfer to toilet with CGA. He needed mod A with doff of LE in preparation for toileting. He needed Min A to complete sit to stand from the toilet and Mod A pulling LE garments up after toileting. He completed hygiene at sink with SBA for soap and water. Completed transfer out into tucker, approx 10 ft. and was transferred down to therapy in w/c. While in therapy gym he completed 4 min on UE bike to increase activity tolerance. PT completed treatment and OT returned him to his bed. He needed Min A to complete bed mobility. He was left supine in bed with call light within reach and his daughter and accompanied him. A: pt performed more of a shuffled gait today and did not transfer as rapid since last visit with therapy. Continue to progress with transfer to improve overall functional ability. P: continue per plan of care, with possible SB.
[2016-04-24] MEDS ORDERED: LACTULOSE 20 GM PACKET PO ONE (16:44)
[2016-04-24] MEDS: ATORVASTATIN 20 MG TABLET PO SCH (20:24)
[2016-04-24] MEDS: Patch Removal PATCH TRANSDERM SCH (20:24)
[2016-04-25] MEDS: HYDROcodone-APAP 7.5 MG-325 MG TABLET PO SCH ×6 (03:34→22:18)
[2016-04-25] MEDS: LIDOCAINE 700 MG PATCH TOPICAL SCH (08:34)
[2016-04-25] MEDS: DOCUSATE 100 MG CAPSULE PO SCH ×2 (08:35→20:55)
[2016-04-25] MEDS: GABAPENTIN 300 MG CAPSULE PO SCH ×3 (08:35→20:55)
[2016-04-25] MEDS: CLOPIDOGREL 75 MG TABLET PO SCH (08:35)
[2016-04-25] MEDS: TAMSULOSIN 0.4 MG CAPSULE PO SCH ×2 (08:35→20:55)
[2016-04-25] MEDS: LACTULOSE 20 GM PACKET PO SCH ×3 (08:37→20:56)
[2016-04-25] MEDS: ENOXAPARIN SODIUM 60 MG/0.6 ML SYRINGE SUBCUT SCH ×2 (08:39→21:08)
--- NOTE | 2016-04-25 11:21 | PDOC(PROG) ---
Interval History: Patient is doing well no complaints had a bowel movement and lactulose did work no problem urinating but dissipated and PT Objective : Data - Labs CBC and BMP: 04/22/16 05:50 04/21/16 17:09 Objective : Exam - General General Appearance: Cooperative - Respiratory Respiratory Exam: Clear to Auscultation - Bilaterally, Breathing Non Labored, Normal To Percussion - Cardiovascular Cardiovascular Exam: RRR, No Murmur, No Clicks - GI/Abdominal GI/Abdominal Exam: Normal Bowel Sounds, Soft - Extremities Extremities Exam: No Clubbing Present, No Edema Present - Neurological Neurological Exam: Alert, Oriented x 3, CN II-XII Intact - Psychiatric Psychiatric Exam: Normal Affect, Normal Mood Assessment and Plan - Patient Problems (1) Compression fracture of L3 lumbar vertebra Current Visit: Yes Status: Acute (2) Hypertension Current Visit: Yes Status: Acute Qualifiers: Hypertension type: essential hypertension Qualified Description: Essential hypertension Qualifier Code(s): (I10) Essential (primary) hypertension (3) Liver metastasis Current Visit: Yes Status: Acute (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 No change with the above plan #2 generalized weaknessPTOT #3 pulmonary embolus treat with Lovenox he is also on Plavix we will monitor closely #4 constipationcontinue lactulose
[2016-04-25] MEDS: SILVER SULFADIAZINE 1% 25 GM CREAM TOPICAL SCH ×2 (14:31→20:59)
[2016-04-25] MEDS: ATORVASTATIN 20 MG TABLET PO SCH (20:55)
[2016-04-25] MEDS: Patch Removal PATCH TRANSDERM SCH (22:28)
[2016-04-26] MEDS: HYDROcodone-APAP 7.5 MG-325 MG TABLET PO SCH ×3 (02:10→10:01)
[2016-04-26 08:12] VITALS: RESP 16; TEMP 98
[2016-04-26] MEDS: LIDOCAINE 700 MG PATCH TOPICAL SCH (08:49)
[2016-04-26] MEDS: GABAPENTIN 300 MG CAPSULE PO SCH (08:49)
[2016-04-26] MEDS: DOCUSATE 100 MG CAPSULE PO SCH (08:49)
[2016-04-26] MEDS: TAMSULOSIN 0.4 MG CAPSULE PO SCH (08:49)
[2016-04-26] MEDS: CLOPIDOGREL 75 MG TABLET PO SCH (08:49)
[2016-04-26] MEDS: ENOXAPARIN SODIUM 60 MG/0.6 ML SYRINGE SUBCUT SCH (08:49)
[2016-04-26] MEDS: SILVER SULFADIAZINE 1% 25 GM CREAM TOPICAL SCH (09:07)
[2016-04-26] MEDS: LACTULOSE 20 GM PACKET PO SCH (09:07)
--- NOTE | 2016-04-26 10:27 | PT.PROG ---
Progress Note Progress Note: S: pt. states he is feeling pretty good today. States he finally got a good nights sleep. O: Treatment consisted of therapeutic exercises: B UE bicep curls with 3#, bench press with the cane with 3# 15 x each; B LE laq, seated marches, resisted ham curls, ball squeezes, slr and sit to stands x 10. He was also able to ambulate approx 65 feet with use of FWW and CGA x 1. He was taken back to his room and placed in his bed. A: Pt. overall did very well with all activities. He was able to ambulate today with little outside assist. His LE strength improves daily. His overall activity level also improving. P: Continue per POC to increase strength and activity tolerance. Danielle Hollins, PROMOTIONS EXECUTIVE
--- NOTE | 2016-04-26 10:39 | PT.PROG ---
Progress Note Progress Note: S: Pt. states he is feeling good today. His and daughter are with him during the last half of therapy. O: Treatment consisted of moist heat to low back while performing B UE 3# 20 reps each: bench press with the cane, bicep curls, red theraband rows and tricep press downs; B LE 20x each: slr, qs, hs, slr, saq, hip abd/add, ankle pumps, sit to stands x 10. Nu step x 3 minutes and then ambulated approximalty 65 feet. A: Pt. overall tolerate continues to do very well with all activities. He is improving daily with strength and tolerance to walking and endurance. His balance is fair. Still requires A.D. for walking for safety. Overall progressing well. P: Continue per POC to increase strength and activity tolerance. Danielle Hollins, TUBE WINDER
--- NOTE | 2016-04-26 11:45 | DCSUMMARY ---
Hospitalization Summary Hospital Course: Final Discharge Diagnosis: Diagnostic Data, Laboratory Data, and Procedures of Signifigance: History and Physical pertinent to Admission: Course of Hospitalization: This very nice 81-year-old male with past medical history of known metastatic prostate cancer with a recent compression fracture admission was the discharged on April 13 was admitted for acute sudden chest pain and diagnosed with pulmonary embolus and infarct patient is not adjusted in doing any Lupron or any other treatments for metastatic prostate cancer and CT also revealed the liver metastases patient has been doing well on Lovenox twice a day his constipation is improved with the lactulose he is on Flomax which helps him urinate and has not been having a problem with this we did tell him that the [facility] is an option as well as possible suprapubic catheter if need be for comfort. He will be discharged to the swing bed status since he wants to try to transition back home and wants to get stronger still be independent they're also thinking about hospice but not have made up their mind yet. Past Medical History Medical History: 1. prostate cancer with previous radiation treatment, now with known metastatic lesions. 2. Hypertension. 3. Shingles affected the eyes. 4. Neuropathy, treated with IV Solu-Medrol, treatments complete. 5. History of TIAs Surgical History: 1. History of skin cancer with previous surgery. 2. Radiation therapy for prostate cancer. 3. Colonoscopy in 2010. Pertinent Family History: Father in his 80s with heart disease. Mother had an accidental overdose. He has a sister that had MS. Past Social History: He doesn't smoke but he chews, doesn't drink, no drugs. He lives with his . Since he had this problem with his the legs is more using wheelchair for mobility. Tobacco Use: Never Smoker Substance Use Type: None Alcohol Use: None On the date of discharge, the patient was examined: Gen.: No acute distress, alert, nontoxic Heart: Regular rate and rhythm, no murmurs, clicks, gallops, or rubs Lungs: Clear to auscultation bilaterally, breathing is nonlabored Abdomen/GI: Normal tones on auscultation, soft, nontender, nondistended Musculoskeletal/extremities: No clubbing, cyanosis, or edema Vitals reviewed and are listed below Assessment and Plan: 1. As per discharge assessments above 2. Disposition: Swing bed 3. Condition on discharge, stable and improved. 4. Diet: regular diet 5. Activities: resume normal activities 6. Follow-Up: 1. PCP 2. 7. Medications at the Time of Discharge: Home Medications Medication Instructions Recorded Confirmed Type Tamsulosin HCl [Flomax] 1 cap PO BID cap 07/16/14 04/21/16 History Atorvastatin Calcium 1 tab PO DAILY #90 tab 10/02/15 04/21/16 Clinic Clopidogrel Bisulfate [Plavix] 1 tab PO DAILY #90 tab 10/02/15 04/21/16 Clinic Gabapentin 1 cap PO TID #90 cap 12/12/15 04/21/16 Clinic Docusate Sodium [Colace] 100 mg PO BID #60 cap 04/17/16 04/21/16 Rx Hydrocodone/Acetaminophen [[place] 1 - 2 tab PO Q4H PRN #60 tab 04/17/16 04/21/16 Rx 7.5-325 Tablet] Lidocaine Patch 5% [Lidoderm Patch 700 mg TOPICAL DAILY #20 adh..patch 04/17/16 04/21/16 Rx 5%] Active Medications Generic Name Dose Route Start Last Admin Trade Name Freq PRN Reason Stop Dose Admin Acetaminophen/Hydrocodone Bitart 1 - 2 tab 04/22/16 18:00 04/26/16 10:01 [place] 7.5/325 Tab PO 2 tab Q4H CATHY Administration Atorvastatin Calcium 20 mg 04/21/16 21:00 04/25/16 20:55 Lipitor PO 20 mg BEDTIME CATHY Administration Clopidogrel Bisulfate 75 mg 04/22/16 09:00 04/26/16 08:49 Plavix PO 75 mg DAILY CATHY Administration Docusate Sodium 100 mg 04/21/16 21:00 04/26/16 08:49 Colace PO 100 mg BID CATHY Administration Enoxaparin Sodium 60 mg 04/21/16 21:00 04/26/16 08:49 Lovenox Inj SUBCUT 60 mg Q12H CATHY Administration Gabapentin 300 mg 04/21/16 21:00 04/26/16 08:49 Neurontin PO 300 mg TID CATHY Administration Hydromorphone HCl 1 mg 04/21/16 21:13 Dilaudid Inj IVP Q4H PRN severe pain not controlled by Sodium Chloride 25 mls @ 200 mls/hr 04/21/16 20:09 Normal Saline 0.9% IV .Post Infusion PRN No Primary IV for Flush ONLY Lactulose 20 gm 04/25/16 09:00 04/26/16 09:07 Kristalose Packet PO Not Given BID CATHY Lidocaine 700 mg 04/22/16 09:00 04/26/16 08:49 Lidoderm Patch 5% TOPICAL 700 mg DAILY CATHY Administration Non-Formulary Medication 1 04/21/16 21:00 04/25/16 22:28 Remove Patch TRANSDERM Not Given BEDTIME CATHY Ondansetron HCl 4 mg 04/21/16 20:09 Zofran Inj IVP Q4H PRN NAUSEA / VOMITING Silver Sulfadiazine 1 applic 04/22/16 09:00 04/26/16 09:07 Silvadene Cream 1% TOPICAL 1 applic BID CATHY Administration Sodium Chloride 5 - 20 ml 04/21/16 20:09 Saline Flush IVP BID PRN Flush Tamsulosin HCl 0.4 mg 04/21/16 21:00 04/26/16 08:49 Flomax PO 0.4 mg BID CATHY Administration 8. Time, care, counseling and coordination of care for this discharge is greater than 30 minutes. Exam - Vitals Vital Signs: Vital Signs Temperature 98.0 F Temperature Source Temporal Artery Scan Pulse Rate [Apical] 78 Pulse Rate [Pulse Oximeter 71 Right] Pulse Rate 81 Respiratory Rate 16 Blood Pressure [Left Arm] 125/67 Blood Pressure [Right Arm] 148/81 Blood Pressure 148/79 Pulse Ox 89 Oxygen Flow Rate 2 Oxygen Delivery Method Room Air Height 5 ft 6 in Weight 58.604 kg Patient Problems - Patient Problem List (1) Compression fracture of L3 lumbar vertebra Current Visit: Yes Status: Acute (2) Hypertension Current Visit: Yes Status: Acute Qualifiers: Hypertension type: essential hypertension Qualified Description: Essential hypertension Qualifier Code(s): (I10) Essential (primary) hypertension (3) Liver metastasis Current Visit: Yes Status: Acute (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
== END 2016-04-26 12:00 | disposition swing bed (61) | DRG 176 ==
LOC: ER 16:18 → MED/SURG 19:10
PROVIDERS: ADMIT Family Medicine; ATTEND Family Medicine
DX: I26.99 Other pulmonary embolism without acute cor pulmonale (principal); J90 Pleural effusion, not elsewhere classified; R53.1 Weakness; M48.56XA Collapsed vertebra, not elsewhere classified, lumbar region, initial encounter for fracture; C78.7 Secondary malignant neoplasm of liver and intrahepatic bile duct; C79.51 Secondary malignant neoplasm of bone; G45.9 Transient cerebral ischemic attack, unspecified; I10 Essential (primary) hypertension; C61 Malignant neoplasm of prostate; K59.00 Constipation, unspecified
CPT/HCPCS: 36415; 70450; 71020; 71275; 80053; 83735; 83880; 85025; 85379; 93005; 93010; 94761; 97010; 97110; 97163; 97166; 97530; 97535; 99284; J1650; J7030

== ENCOUNTER 2016-04-26 11:48 | Inpatient (IN) | payer OTHER ==
--- NOTE | 2016-04-26 12:04 | PDOC ---
History and Physical - History of Present Illness History of Present Illness: This very nice 81-year-old male with past medical history of known metastatic prostate cancer with a recent compression fracture admission was the discharged on April 13 was admitted for acute sudden chest pain and diagnosed with pulmonary embolus and infarct patient is not adjusted in doing any Lupron or any other treatments for metastatic prostate cancer and CT also revealed the liver metastases patient has been doing well on Lovenox twice a day his constipation is improved with the lactulose he is on Flomax which helps him urinate and has not been having a problem with this we did tell him that the [facility] is an option as well as possible suprapubic catheter if need be for comfort. He will be discharged to the swing bed status since he wants to try to transition back home and wants to get stronger still be independent they're also thinking about hospice but not have made up their mind yet. This dictation was done on the same day of discharge from regular hospital bed Past Medical History Medical History: 1. prostate cancer with previous radiation treatment, now with known metastatic lesions. 2. Hypertension. 3. Shingles affected the eyes. 4. Neuropathy, treated with IV Solu-Medrol, treatments complete. 5. History of TIAs Surgical History: 1. History of skin cancer with previous surgery. 2. Radiation therapy for prostate cancer. 3. Colonoscopy in 2010. Pertinent Family History: Father in his 80s with heart disease. Mother had an accidental overdose. He has a sister that had MS. Past Social History: He doesn't smoke but he chews, doesn't drink, no drugs. He lives with his . Since he had this problem with his the legs is more using wheelchair for mobility. Substance Use Type: None Medication / Allergies Home Medications: Home Medications Medication Instructions Recorded Confirmed Type Tamsulosin HCl [Flomax] 1 cap PO BID cap 07/16/14 04/21/16 History Atorvastatin Calcium 1 tab PO DAILY #90 tab 10/02/15 04/21/16 Clinic Clopidogrel Bisulfate [Plavix] 1 tab PO DAILY #90 tab 10/02/15 04/21/16 Clinic Gabapentin 1 cap PO TID #90 cap 12/12/15 04/21/16 Clinic Docusate Sodium [Colace] 100 mg PO BID #60 cap 04/17/16 04/21/16 Rx Hydrocodone/Acetaminophen [[place] 1 - 2 tab PO Q4H PRN #60 tab 04/17/16 04/21/16 Rx 7.5-325 Tablet] Lidocaine Patch 5% [Lidoderm Patch 700 mg TOPICAL DAILY #20 adh..patch 04/17/16 04/21/16 Rx 5%] Docusate Sodium [Colace] 100 mg PO BID cap 04/26/16 Rx Enoxaparin Inj [Lovenox Inj] 60 mg SUBCUT Q12H syringe 04/26/16 Rx Lactulose Packet [Kristalose 20 gm PO BID packet 04/26/16 Rx Packet] Silver sulfADIAZ Cream 1% 1 applic TOPICAL BID tube 04/26/16 Rx [Silvadene Cream 1%] Allergies/Adverse Reactions: Allergies Allergy/AdvReac Type Severity Reaction Status Date / Time petrolatum, yellow Allergy Mild rash Verified 04/26/16 06:56 SCOTCH Allergy Mild RASH Uncoded 04/26/16 06:56 Review of Systems - Review of Systems All Systems: Reviewed & No Additional Complaints Except as Stated - Cardiovascular Cardiovascular: DENIES: Negative System Review, Chest Pain, Edema, Syncope, Palpitations, Orthopnea, Paroxysmal Nocturnal Dyspnea, Other, See HPI - Genitourinary Genitourinary: REPORTS: Hesitant [place]. DENIES: Pain, Burning - Musculoskeletal Musculoskeletal: DENIES: Negative System Review, Back Pain, Neck Pain, Swelling , Calf Pain, Muscle Pain, Cramping, Joint Pain - Hands, Joint Pain - Elbows, Joint Pain - Shoulders, Joint Pain - Hips, Joint Pain - Knees, Joint Pain - Feet , AM Stiffness, Other, See HPI - Neurological Neurologic: DENIES: Negative System Review, Headache, Numbness/Paresthesia, Tremors, Weakness, Seizures, Head Trauma, LOC, Dizziness, Confusion, Memory Loss , Difficulty Walking, Incoordination, Other, See HPI Exam - Vitals Vital Signs: Vital Signs Height 5 ft 6 in Assessment and Plan - Patient Problems (1) Compression fracture of L3 lumbar vertebra Current Visit: No Status: Acute (2) Constipation Current Visit: No Status: Acute (3) History of prostate cancer Current Visit: No Status: Acute (4) Liver metastasis Current Visit: No Status: Acute (5) Prostate cancer metastatic to bone Current Visit: No Status: Acute (6) Pulmonary embolism and infarction Current Visit: No Status: Acute - Assessment / Plan Additional Assessment/Plan Details: Patient with a history of metastatic prostate cancer and pulmonary embolus will be admitted to swing bed for further strengthening and conditioning to finally transition back home social problems specialist working with family family is deciding on possible hospice or not but they have not made up their decision we will take it one day at a time also will monitor anticoagulation since patient is both on Plavix and Lovenox twice a day we will continue usual meds is from the hospital setting and address issues as they come up
[2016-04-26] MEDS ORDERED: FUROSEMIDE 10 MG/1 ML - 4 ML IVP ONE (12:35)
[2016-04-26] MEDS ORDERED: NORMAL SALINE 10 ML SYRINGE FLUSH IVP PRN (12:53)
[2016-04-26] MEDS: HYDROcodone-APAP 7.5 MG-325 MG TABLET PO PRN ×2 (15:16→20:24)
[2016-04-26] MEDS: GABAPENTIN 300 MG CAPSULE PO SCH ×2 (15:17→20:24)
[2016-04-26] MEDS: TAMSULOSIN 0.4 MG CAPSULE PO SCH (20:24)
[2016-04-26] MEDS: ATORVASTATIN 20 MG TABLET PO SCH (20:24)
[2016-04-26] MEDS: SILVER SULFADIAZINE 1% 25 GM CREAM TOPICAL SCH (20:25)
[2016-04-26] MEDS: DOCUSATE 100 MG CAPSULE PO SCH (20:25)
[2016-04-26] MEDS: ENOXAPARIN SODIUM 60 MG/0.6 ML SYRINGE SUBCUT SCH (20:25)
[2016-04-26] MEDS: LACTULOSE 20 GM PACKET PO SCH (20:43)
[2016-04-26] MEDS: Patch Removal LIDOCAINE PATCH TRANSDERM SCH (20:44)
[2016-04-27] MEDS: HYDROcodone-APAP 7.5 MG-325 MG TABLET PO PRN ×4 (00:31→21:15)
[2016-04-27 06:23] LABS: HEMATOCRIT 32.8 % (42.0-52.0); HEMOGLOBIN 10.6 g/dL (14.0-18.0); MEAN CORPUSCULAR HEMOGLOBIN 30.6 PG (27-31); MEAN CORPUSCULAR HGB CONC 32.3 g/dL (33-37); MEAN PLATELET VOLUME 10.3 FL (7.4-12.2); RDW COEFFICIENT OF VARIATION 14.9 % (11.5-14.5); RED BLOOD COUNT 3.46 10^6/uL (4.70-6.10); WHITE BLOOD COUNT 2.14 10^3/uL (4.8-10.8)
[2016-04-27 06:32] LABS: BILIRUBIN,TOTAL 0.3 mg/dL (0.3-1.2); BUN/CREATININE RATIO 14.28 (6-20); CALCIUM 8.5 mg/dL (8.7-10.7); CREATININE 0.7 mg/dL (0.70-1.50); MAGNESIUM 1.9 mg/dL (1.6-2.4); POTASSIUM 3.8 meq/L (3.8-5.2); TOTAL PROTEIN 5.1 g/dL (6.1-8.0)
[2016-04-27 07:14] LABS: PLATELET MORPHOLOGY COMMENT NORMAL MORPHOLOGY (NORM)
[2016-04-27 07:32] LABS: BAND NEUTROPHILS % 0 % (0-10); EOSINOPHILS % (MANUAL) 3 % (0-8); LYMPHOCYTES % (MANUAL) 38 % (10-50); MONOCYTES % (MANUAL) 10 % (0-12); NEUTROPHILS % (MANUAL) 49 % (50-80)
[2016-04-27 07:33] LABS: BASOPHILS % (MANUAL) 0 % (0-1)
[2016-04-27] MEDS: ENOXAPARIN SODIUM 60 MG/0.6 ML SYRINGE SUBCUT SCH ×2 (08:14→21:10)
[2016-04-27] MEDS: LACTULOSE 20 GM PACKET PO SCH ×2 (08:14→21:22)
[2016-04-27] MEDS: CLOPIDOGREL 75 MG TABLET PO SCH (08:15)
[2016-04-27] MEDS: TAMSULOSIN 0.4 MG CAPSULE PO SCH ×2 (08:15→21:10)
[2016-04-27] MEDS: GABAPENTIN 300 MG CAPSULE PO SCH ×3 (08:15→21:10)
[2016-04-27] MEDS: LIDOCAINE 700 MG PATCH TOPICAL SCH (08:15)
[2016-04-27] MEDS: DOCUSATE 100 MG CAPSULE PO SCH ×2 (08:15→21:10)
[2016-04-27] MEDS: SILVER SULFADIAZINE 1% 25 GM CREAM TOPICAL SCH ×2 (08:26→21:10)
--- NOTE | 2016-04-27 14:45 | PT.PROG ---
Progress Note Progress Note: S: Kiko states that he is doing fairly well this afternoon. After ambulating a lap around the nurses station, patient states that he is willing to come down to therapy and participate in activities. O: Treatment consisted of: functional activity - ambulation x 150 feet with FWW and CGA x 1 for safety, ambulation x 50 feet to elevator, 10 x sit to stand with emphasis on standing up tall and not utilizing l/e's to brace self against mat, cone reaching in standing position. Ther ex - instruction in seated alternating resisted marching, resisted hip abd, hip add, resisted hamstring curls, nustep. A: Tolerated exercises well. Requires max vc for safety awareness especially with sit to stands and to decrease reliance of l/e's on mat for balance control. States that he enjoys walking. P: Continue per established POC.
--- NOTE | 2016-04-27 15:16 | PTI REPORT ---
Thank you for the referral of Adriano Faye. He was seen on 04/27/16 for a swingbed evaluation secondary to weakness. SUBJECTIVE: The patient is an 81-year-old male. The patient reports he feels like his strength and his endurance is much improved since being in the hospital on an inpatient basis but continues to tire quickly. He states he felt like he had good therapy sessions over the weekend. He is also curious as to how his thermal wound is doing. Prior to being admitted as an inpatient, he fell asleep with a heating pad along his back which resulted in a burn. PAST MEDICAL HISTORY: Past medical history can be found in the patient's medical record. OBJECTIVE FINDINGS: Pain: The patient reports a generalized pain of 2/10 on the verbal analog scale (0=no pain, 10=worst pain); nowhere specific. Wound: Upon inspection, the patient's wound that was inspected upon his inpatient stay is 90% healed and is superficial with irregular borders and a scant amount of drainage. Bed mobility/Transfers: The patient is able to perform sit to stand transfers and bed mobility with min assist to stand by assist x1, depending upon his fatigue level. Strength: Strength in his left lower extremity is 3+/5 as compared to 4-/5 for his right. Range of motion: Bilateral lower extremity range of motion is within functional limits; however, the patient does refuse to try to don any lower extremity clothing or put on shoes, stating he always has help at home. Ambulation: At this point the patient is able to ambulate up to 50 feet with either his all wheeled walker or front wheeled walker with gait belt and contact guard assistance. He does require verbal cues for proper hand placement and lower extremity placement prior to sitting. ASSESSMENT: Problem List: Decreased endurance Decreased safety awareness Decreased strength Physical Therapy Goals: To be met by discharge from swingbed: Patient will be able to ambulate up to 100 feet continuously with appropriate assistive device for household ambulation. Patient will increase bilateral lower extremity strength by at least half a grade bilaterally. Patient will be able to perform all bed mobility and transfers with stand by assist only. TREATMENT PLAN: Patient will be seen B.I.D during the week and one time per day over the weekend as a swingbed patient to address the above goals and objectives. INITIAL TREATMENT: Treatment today consisted of the swingbed evaluation followed by redressing the patient's thermal wound. The wound was cleansed with wound cleanser and dressed with a 6X6 Mepilex as provided by the third floor nursing station. He then participated in functional activities including the new step x45 minutes as well as ambulating 10 feet x1, 25 feet x1, and 50 feet x1 with all wheeled walker, gait belt, and contact guard assistance. He did require verbal cues for propre hand placement and lower extremity placement. ARABELLA
--- NOTE | 2016-04-27 15:46 | OTI REPORT ---
Thank you for the referral of Adriano Faye. He was seen on 04/27/16 for an occupational therapy swingbed evaluation secondary to generalized weakness. SUBJECTIVE: The patient is an 81-year-old male who lives at home with his and close to his son. The patient was admitted for pulmonary embolism with resultant decline in function, safety, and decreased core stability and strength. The patient also has a recent diagnosis of cancer. The patient is a fall risk and is pretty fatigued with extended activities. PAST MEDICAL HISTORY: Past medical history can be found in the patient's medical record. OBJECTIVE FINDINGS: Pain: The patient rates his pain in his low back as a 6/10 on the verbal analog scale (0=no pain, 10=worst pain) with referred pain through his upper thoracic region with active range of motion overhead. Activities of daily living: *Grooming: The patient requires contact guard assist to complete grooming including face washing, hair combing, and teeth brushing, etc. when standing at the sink. *Bathing/showering: The patient does shower at home. The patient requires min assist, especially with activity greater than five minutes. He does have decreased core strength and balance issues that impact his performance with this activity. *Upper body dressing: Upper body dressing requires set up assistance because he is contact guard and wouldn't be able to retrieve his own clothing. *Lower body dressing: Lower body dressing requires min assist to contact guard assist with compensatory strategies. The patient does have difficulty initiating the threading, but once it is up to his knees he can perform most of the task with contact guard for steadying due to decreased standing balance. *Toileting: The patient requires contact guard to min assist to steady the patient while he is pulling up his pants. *Toilet transfers: Toilet transfers require contact guard to min assist secondary to decreased balance and core stability strength. *Tub/shower transfers: The patient was completing shower transfer at home. He requires min assist to do so and has to negotiate a tub ledge. He does have a bench in his shower stall and does have grab bars. Active range of motion: Upper body active range of motion is less than passive motion due to strength deficits bilaterally. Strength: Bilateral upper body strength is 3-/5. ASSESSMENT: The patient is pleasant and cooperative. The patient will benefit from more detailed discharge planning and HEP development. Problem List: Decreased bilateral upper body active/passive motion Decreased balance Decreased core strength Decreased stability Decreased functional navigation Decreased safety Decreased performance of ADLs/iADLs, especially activity greater than 5 minutes Short-Term Goals: To be met by discharge from swingbed: Patient will be able to complete basic ADLs and dressing tasks with set up assistance/modified independence with use of adaptive equipment. Patient will be able to complete functional transfers including toilet/shower transfers with supervision to modified independence with use of adaptive equipment. Patient will increase functional endurance/activity tolerance to 12 minutes of sustained activity in order to perform ADL routines with modified independence to supervision. Long-Term Goals: To be met following discharge from swingbed: Patient will increase strength, endurance, safety, and transfers to a level of modified independence in order to be safe in the least restrictive environment. TREATMENT PLAN: Patient will be seen B.I.D during the week and one time per day over the weekend as a swingbed patient to address the above goals and objectives. INITIAL TREATMENT: Treatment today consisted of the swingbed evaluation activities only. ARABELLA
[2016-04-27] MEDS: ATORVASTATIN 20 MG TABLET PO SCH (21:10)
[2016-04-27] MEDS: Patch Removal LIDOCAINE PATCH TRANSDERM SCH (21:22)
[2016-04-28] MEDS: TAMSULOSIN 0.4 MG CAPSULE PO SCH ×2 (08:43→20:22)
[2016-04-28] MEDS: GABAPENTIN 300 MG CAPSULE PO SCH ×3 (08:43→20:22)
[2016-04-28] MEDS: ENOXAPARIN SODIUM 60 MG/0.6 ML SYRINGE SUBCUT SCH ×2 (08:43→21:34)
[2016-04-28] MEDS: HYDROcodone-APAP 7.5 MG-325 MG TABLET PO PRN ×2 (08:43→15:43)
[2016-04-28] MEDS: DOCUSATE 100 MG CAPSULE PO SCH ×2 (08:43→20:21)
[2016-04-28] MEDS: LACTULOSE 20 GM PACKET PO SCH ×2 (08:44→21:34)
[2016-04-28] MEDS: CLOPIDOGREL 75 MG TABLET PO SCH (08:44)
[2016-04-28] MEDS: LIDOCAINE 700 MG PATCH TOPICAL SCH (08:44)
[2016-04-28] MEDS: SILVER SULFADIAZINE 1% 25 GM CREAM TOPICAL SCH ×2 (10:07→21:33)
--- NOTE | 2016-04-28 11:20 | PT.PROG ---
Progress Note Progress Note: S. Patient stated that he is not feeling very well this morning. However he would be willing to go to the therapy gym. O. Patient ambulated 50 feet then was wheeled to the therapy gym where he used the nu-step x 20 minutes, then performed seated exercises in the form of; long arc quads, marches, heel toe raises and sit to stands all x 10 bilaterally. Patient ambulated 70 feet then was wheeled back to his room where he was left in bed with alarm and call light. A. Patient was able to perform all exercises however fatigued easily this morning, he required seated rest breaks to recover. Patient continues to require verbal cues to perform exercises correctly and safely especially sit to stand transfers. Patient would continue to benefit from skilled therapy to increase strength, balance and endurance. P. Continue POC.
--- NOTE | 2016-04-28 13:29 | PDOC(PROG) ---
Date and Time of Service: 04/28/2016, 1325 Interval History: States that he didn't feel very well this morning. Increased pain mostly in the back on the side. No nausea or vomiting. Still able to do therapy. No chest pain. Objective : Data - Labs CBC and BMP: 04/27/16 05:45 04/27/16 05:45 Labs - Last 24 Hours: Laboratory Results 04/27/16 Range/Units 05:45 WBC 2.14 L (4.8-10.8) 10^3/uL RBC 3.46 L (4.70-6.10) 10^6/uL Hgb 10.6 L (14.0-18.0) g/dL Hct 32.8 L (42.0-52.0) % MCV 94.8 H (80-90) FL MCH 30.6 (27-31) PG MCHC 32.3 L (33-37) g/dL RDW Std Deviation 49.5 (39-50) fL RDW Coeff of Yasmine 14.9 H (11.5-14.5) % Plt Count 242 (140-350) 10*3/uL MPV 10.3 (7.4-12.2) FL Neutrophils % (Manual) 49 L (50-80) % Band Neutrophils % 0 (0-10) % Lymphocytes % (Manual) 38 (10-50) % Monocytes % (Manual) 10 (0-12) % Eosinophils % (Manual) 3 (0-8) % Basophils % (Manual) 0 (0-1) % Metamyelocytes % Not Reportable Myelocytes % Not Reportable Promyelocytes % Not Reportable Blast Cells Not Reportable WBC Morphology Comment Normal morphology (NORM) Plt Morphology Comment Normal morphology (NORM) RBC Morph Comment Normal morphology (NORM) Sodium 139 (135-145) meq/L Potassium 3.8 (3.8-5.2) meq/L Chloride 107 (98-112) meq/L Carbon Dioxide 25 (23-33) meq/L Anion Gap 7 (5-20) BUN 10 (7-22) mg/dL Creatinine 0.7 (0.70-1.50) mg/dL Estimated GFR (>60 ml/min/1.73m(2)) BUN/Creatinine Ratio 14.28 (6-20) Glucose 84 (78-110) mg/dL Calculated Osmolality 285.0 (267-292) mOsm/kg Calcium 8.5 L (8.7-10.7) mg/dL Magnesium 1.9 (1.6-2.4) mg/dL Total Bilirubin 0.3 (0.3-1.2) mg/dL AST 43 (21-57) IU/L ALT 51 (21-72) IU/L Alkaline Phosphatase 99 (38-126) IU/L Total Protein 5.1 L (6.1-8.0) g/dL Albumin 2.7 L (3.5-4.8) g/dL Globulin 2.4 L (2.50-4.10) g/dL Albumin/Globulin Ratio 1.10 L (1.3-2.0) mg/g Objective : Exam - General General Appearance: No Acute Distress, Cooperative Additional General Exam Details: Vital Signs - Last Taken Temperature 97.6 F 04/28/16 06:47 Pulse Rate 76 04/28/16 06:47 Respiratory Rate 18 04/28/16 06:47 Blood Pressure 157/83 04/28/16 06:47 Pulse Ox 91 04/28/16 06:47 - Eye Eye Exam: No Scleral Icterus - Respiratory Respiratory Exam: Clear to Auscultation - Bilaterally, Breathing Non Labored - Cardiovascular Cardiovascular Exam: RRR, No Murmur, No Clicks, No Gallops, No Rubs, No JVD - GI/Abdominal GI/Abdominal Exam: Normal Bowel Sounds, Non Tender, Non Distended, Soft - Extremities Extremities Exam: No Clubbing Present, No Edema Present, No Cyanosis Present 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 Current Visit: Yes Status: Acute (3) Compression fracture of L3 lumbar vertebra Current Visit: Yes Status: Chronic (4) Hypertension Current Visit: Yes Status: Chronic Qualifiers: Hypertension type: essential hypertension Qualified Description: Essential hypertension Qualifier Code(s): (I10) Essential (primary) hypertension (5) Liver metastasis Current Visit: Yes Status: Acute (6) Lumbosacral plexopathy Current Visit: Yes Status: Chronic (7) History of transient ischemic attack Current Visit: Yes Status: Chronic (8) Weakness Current Visit: Yes Status: Acute - Assessment / Plan Additional Assessment/Plan Details: White blood cells, on my view of the labs, showed a low value at 2.14. Wonder if the patient will be going into a neutropenic state. Check CBC tomorrow. add scheduled oxycodone ER to try to avoid fluctuations in pain levels. continue PT and OT thus far, no evidence of major bleeding complications, but still high risk on lovenox and plavix.
--- NOTE | 2016-04-28 16:45 | PT.PROG ---
Progress Note Progress Note: S. Patient stated that he still is not feeling great however he would go to the therapy gym. O. Patient ambulated 50 feet to the wheelchair and was wheeled to the therapy gym where he used the nu-step x 10 minutes, then performed seated exercises in the form of; marches, long arc quads, heel toe raises, ball squeezes all x 10 bilaterally. Patient was left with OT for further therapy. A. Patient tolerated exercises fair this afternoon, he continues to struggle with fatigue and weakness. He continues to require verbal cues to perform transfers safely, and continues to struggle with balance during ambulation. He would continue to benefit from skilled therapy to increase endurance, balance and safety. P. Continue POC.
--- NOTE | 2016-04-28 16:47 | OT.PROG ---
Progress Note Progress Note: S: pt stated he was not feeling well and requested we return later. O: pt was seen in his room after returning later to see if he would feel better. He was in supine position and completed bed mobility with Mod Ind as it took him longer to complete. He completed transfer approx 15 ft before requesting to sit in w/c. He was transferred the rest of the way in chair and completed PT first. After completion of PT he completed UE exercises with RTB in shoulder flex,abd, bicep flex and rows, all with BUE x15 to increase his strength to assist with postural transitions. Pt was returned to his room by PT. A: pt's overall functional transfers have decreased some but may be due to not feeling well. Continue to progress with all activities as he can tolerate. P: Continue per plan of care.
[2016-04-28] MEDS: oxyCODONE ER 10 MG TAB PO SCH (20:21)
[2016-04-28] MEDS: ATORVASTATIN 20 MG TABLET PO SCH (20:21)
[2016-04-28] MEDS: Patch Removal LIDOCAINE PATCH TRANSDERM SCH (21:33)
[2016-04-29] MEDS: HYDROcodone-APAP 7.5 MG-325 MG TABLET PO PRN ×3 (02:15→19:37)
[2016-04-29] MEDS: LIDOCAINE 700 MG PATCH TOPICAL SCH (08:21)
[2016-04-29] MEDS: ENOXAPARIN SODIUM 60 MG/0.6 ML SYRINGE SUBCUT SCH ×2 (08:21→20:58)
[2016-04-29] MEDS: LACTULOSE 20 GM PACKET PO SCH ×2 (08:22→20:56)
[2016-04-29] MEDS: GABAPENTIN 300 MG CAPSULE PO SCH (08:22)
[2016-04-29] MEDS: TAMSULOSIN 0.4 MG CAPSULE PO SCH ×2 (08:22→20:59)
[2016-04-29] MEDS: DOCUSATE 100 MG CAPSULE PO SCH ×2 (08:22→20:59)
[2016-04-29] MEDS: oxyCODONE ER 10 MG TAB PO SCH ×2 (08:22→20:58)
[2016-04-29] MEDS: CLOPIDOGREL 75 MG TABLET PO SCH (08:22)
[2016-04-29] MEDS: SILVER SULFADIAZINE 1% 25 GM CREAM TOPICAL SCH ×2 (10:11→20:59)
--- NOTE | 2016-04-29 10:43 | OT PM DAY ---
Diagnosis : Weakness PM - Occupational Therapy S: The patient reports that he is pretty tired this afternoon. He just finished up with physical therapy. O: The patient performed upper extremity strengthening activities including black power web x2 minutes bilaterally, therex bar for wrist flexion/extension x3 minutes, and red theraband resisted rows, biceps curls, internal/external rotation, shoulder extension, and shoulder adduction x20 repetitions bilaterally. A: The patient did well with his upper extremity tasks. P: Continue seeing patient BID during the week and one time per day over the weekend for upper extremity strengthening, ADLs, and overall functional mobility. ARABELLA
--- NOTE | 2016-04-29 10:49 | OT PM DAY ---
Diagnosis : Weakness PM - Occupational Therapy S: The patient reports that he is doing pretty good; however, he is not doing as well as yesterday, he feels more fatigued. O: Today the patient was able to complete upper extremity strengthening including upper body ergometer x3 minutes forward and 3 minutes backward followed by shoulder extension, rows, and biceps curls x30 repetitions each, theratube wrist flexion/extension with isometric contractions, and green power web x2 minutes bilaterally. A: The patient is making some gains. He still needs min to mod assist to come from sit to stand. He has difficulty standing up from a chair without losing balance. He would continue to benefit from strengthening and activity tolerance. P: Continue seeing patient BID during the week and one time per day over the weekend for upper extremity strengthening, ADLs, and overall functional mobility. MTDD
[2016-04-29] MEDS ORDERED: GABAPENTIN 300 MG CAPSULE PO SCH (11:43)
--- NOTE | 2016-04-29 11:52 | PT.PROG ---
Progress Note Progress Note: S: pt reports he is feeling better today, slept good and has been eating well. pt reports at times his left leg gives out. O: pt brought down to PT by OT. pt instructed to perform nu step x 15 minutes. instruction in seated LAQ 2#x 15 reps, seated clams RTB x 15 reps, seated hs curls RTB x20 , seated marches 2# x 10 reps each. 10 sit to stands with CGA x 1 and mod cues for technique. pt instructed in Standing marches and L LE decided not to support him and he was gently placed on therapy addison with control. pt instructed to ambulate back to elevator with CGA x 2 w/ w.c followup. pt returned to bed w/ CGA x 1 left in bed with bed alarm activated. A: pt tolerated therapy fair, fatigued with standing ex and demo 1 LOB. pt continues to benefit from skilled therapy P: cont per POC
--- NOTE | 2016-04-29 14:07 | PDOC(PROG) ---
General Note Progress Note: having some vertigo symptoms today. blood pressures reviewed and look okay. could be related to medications. meclizine has not worked in past. burn on right flank is not infected, about 1 % surface area, second degree. silvadeine cream. 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
--- NOTE | 2016-04-29 17:04 | PT.PROG ---
Progress Note Progress Note: S. Patient stated that he is very dizzy this afternoon. O. Patient ambulated 50 feet to the wheelchair where he was wheeled to the therapy gym where he used nu-step x 20 minutes, then performed exercises in the form of; heel toe raises, marches, long arc quads, clamshells, ball squeezes, resisted knee flexion (red), sit to stands all x 10 bilaterally. Patient ambulated 90 feet to the wheelchair and was wheeled to his room where he was left in his chair with alarm and call light. A. Patient tolerated therapy fair this afternoon. OT performed vestibular tests therefore patient is required to sit upright in his chair for 2-3 hours. Patient would continue to benefit from skilled therapy to increase strength, mobility and endurance. P. Continue POC.
[2016-04-29] MEDS: ATORVASTATIN 20 MG TABLET PO SCH (20:59)
[2016-04-29] MEDS: GABAPENTIN 100 MG CAPSULE PO SCH (20:59)
[2016-04-30] MEDS: HYDROcodone-APAP 7.5 MG-325 MG TABLET PO PRN ×5 (04:17→22:43)
[2016-04-30] MEDS: ENOXAPARIN SODIUM 60 MG/0.6 ML SYRINGE SUBCUT SCH ×2 (08:39→20:31)
[2016-04-30] MEDS: TAMSULOSIN 0.4 MG CAPSULE PO SCH ×2 (08:39→20:33)
[2016-04-30] MEDS: LACTULOSE 20 GM PACKET PO SCH ×3 (08:39→20:40)
[2016-04-30] MEDS: CLOPIDOGREL 75 MG TABLET PO SCH (08:39)
[2016-04-30] MEDS: DOCUSATE 100 MG CAPSULE PO SCH ×2 (08:39→20:33)
[2016-04-30] MEDS: GABAPENTIN 100 MG CAPSULE PO SCH ×3 (08:39→20:32)
[2016-04-30] MEDS: oxyCODONE ER 10 MG TAB PO SCH ×2 (08:39→20:32)
[2016-04-30] MEDS: SILVER SULFADIAZINE 1% 25 GM CREAM TOPICAL SCH ×2 (08:40→20:35)
--- NOTE | 2016-04-30 16:25 | PT.PROG ---
Progress Note Progress Note: S. Patient stated that he would go to therapy this afternoon. O. Patient had care conference this afternoon, then was wheeled to the therapy gym where he used the nu-step x 10 minutes, and performed seated exercises in the form of; heel toe raises, marches, long arc quads, ball squeezes, clamshells all x 10 bilaterally. Patient ambulated 80 feet to the wheelchair and was wheeled back to his room where he was left in his bed with alarm and call light. A. Patient tolerated therapy well, he continues to struggle with weakness and balance deficits. he would continue to benefit from skilled therapy at this time. P. Continue POC.
--- NOTE | 2016-04-30 16:41 | PT.PROG ---
Progress Note Progress Note: Patient refused therapy this morning due to dizziness.
--- NOTE | 2016-04-30 17:07 | OT.PROG ---
Progress Note Progress Note: S: pt stated that he is feeling a little better. O: pt was seen in his room for care conference with medical team present. After care conference pt was seen in his room and was in supine position. He completed bed mobility with Mod Ind. He completed toilet transfer with CGA for safety only. He completed all toileting with Mod Ind as it only took him longer to complete. Pt then completed hygiene activity at sink Ind. He then was transferred to therapy gym in w/c. He completed UE exercises with RTB in all ranges x15 to assist with strength and improve all postural transitions. A: pt may continue to benefit from therapy to increase activity tolerance and improve UE strength. Continue to monitor ADL's to ensure that he does not decline in his ability to complete. P: Continue per plan of care.
[2016-04-30] MEDS: ATORVASTATIN 20 MG TABLET PO SCH (20:32)
[2016-05-01] MEDS: GABAPENTIN 100 MG CAPSULE PO SCH ×3 (09:04→21:17)
[2016-05-01] MEDS: oxyCODONE ER 10 MG TAB PO SCH ×2 (09:04→21:16)
[2016-05-01] MEDS: DOCUSATE 100 MG CAPSULE PO SCH ×2 (09:04→21:18)
[2016-05-01] MEDS: CLOPIDOGREL 75 MG TABLET PO SCH (09:05)
[2016-05-01] MEDS: SILVER SULFADIAZINE 1% 25 GM CREAM TOPICAL SCH ×2 (09:05→21:16)
[2016-05-01] MEDS: ENOXAPARIN SODIUM 60 MG/0.6 ML SYRINGE SUBCUT SCH ×2 (09:05→21:16)
[2016-05-01] MEDS: LACTULOSE 20 GM PACKET PO SCH ×2 (09:05→21:23)
[2016-05-01] MEDS: TAMSULOSIN 0.4 MG CAPSULE PO SCH ×2 (09:05→21:18)
[2016-05-01] MEDS: HYDROcodone-APAP 7.5 MG-325 MG TABLET PO PRN ×3 (09:05→23:40)
--- NOTE | 2016-05-01 11:37 | PT.PROG ---
Progress Note Progress Note: S. Patient stated that he is feeling better today compared to yesterday. Leonardo Worley ambulated 50 feet to the wheelchair and was wheeled to the therapy gym where he used the nu-step x 15 minutes, then performed exercises in the form of; seated marches, long arc quads, heel toe raises, ball squeezes, clamshells, resisted knee flexion (green), sit to stands, standing hip flexion/ extension, standing marches all with 1# weight x 15 bilaterally. Patient was left with OT for further therapy. A. Patient tolerated exercise well this morning, he continues to struggle with balance and fatigue. He requires short seated rest breaks to recover then is able to continue. Patient would continue to benefit from skilled therapy to increase strength, mobility and endurance. P. continue POC.
--- NOTE | 2016-05-01 11:57 | OT.PROG ---
Progress Note Progress Note: S: "I am doing pretty good." O: Pt. seen from 944 to 1014 with pt. engaging in UE ther-ex and completing 3 sets of 10 super-set ex's ( 4 min of continuos ex's against gravity without weight) and without rest breaks in between to include: 3 sets of 10 B shoulder ex's in scaption, to abduction, and moving into posterior plane and adducting B scapulae. Pt. repeated this without stopping for 4 min. Pt. then took 2 min rest break and moved onto the next super-set to include 3 sets of 10 scapular elevation, followed by shoulder flexion, and lastly caption again. pt. perfoming this round of BUE ex's for anhter 4 min without rest breaks. Pt. then taking another 2 min rest break. Pt. then completed 3 sets of 10 overhead reaches with the elbow slightly flexed and B hands clasped moving BUE's into a posterior plane and moving BUE's towards a posterior plane. Pt. education then provided to pt. on body mechanics for transfers and using back protection strategies. A: Pt. engaged in therapy and appears to be in good spirits and have good energy. P: Continue POC. Anu Gustafson OTD, OTR/L
--- NOTE | 2016-05-01 14:26 | OT AM DAY ---
Diagnosis : Weakness AM - Occupational Therapy S: The patient states he is feeling much better than yesterday and that he got a good night's sleep. O: The patient was seen in his room in a supine position. He completed bed mobility from supine to edge of bed independently. He also complete lower extremity and upper extremity dressing including doffing and donning socks independently. The patient completed functional transfer approximately 65 feet before being transferred the rest of the way to therapy via wheelchair. Once in therapy he transferred to the arm bike where he performed 6.5 minutes on the arm bike to increase his activity tolerance and strength. From there the patient transferred to a mat table where the patient completed box step ups on the #2 box to prepare him for any stairs and to increase his lower extremity strength. A: The patient would continue to benefit from therapy to increase his activity tolerance. We will continue to monitor his back pain and increase his overall function with transfers. P: Continue seeing patient BID during the week and one time per day over the weekend until discharge. ARABELLA
--- NOTE | 2016-05-01 15:04 | OT PM DAY ---
Diagnosis : Weakness PM - Occupational Therapy S: The patient reports a lot of dizziness, especially when sitting up and laying down. O: Today the patient complete upper extremity strengthening with red theraband for biceps, internal/external rotation, shoulder extension, shoulder adduction, triceps, and circumduction. The patient was assessed with tucker pike maneuvers. He had four seconds of left posterior canal nystagmus but he had 30 degrees of right nystagmus for 30 seconds beading to the left. He was repositioned when going down to the left side. It was atypical because it was not up or down beading with posterior/anterior. The patient was repositioned on the left side. He also completed gaze stabilization and head turning with separation of eye movement. A: The patient does have some nystagmus and is somewhat atypical for the tucker pike maneuvers as it is more of a geotropic type nystagmus versus an up or down beading. We will continue to assess this. P: Continue seeing patient BID during the week and one time per day over the weekend until discharge. MANDYD
--- NOTE | 2016-05-01 15:44 | OT AM DAY ---
Diagnosis : Weakness AM - Occupational Therapy S: The patient stated he was still feeling dizzy and not feeling right. He states he feels as though it is his medication causing his dizziness. O: The patient was seen in his room. He did not want to go downstairs but he did agree to complete a MOCA while sitting upright in bed. The patient scored 4/5 on the visuospatial executive, he scored 3/3 on the naming, on the memory portion which required no points, he did repeat 5 words correctly, on the attention sub task 1 he scored 2/2, on the attention sub task 2 he scored 1/ 1, on attention sub task 3 with subtraction he scored 3/3, on language sub task 1 he scored 2/2, on language sub task 2 (fluency) he scored 1/1, on abstraction he scored 1/2, on orientation he scored 6/6, and on delayed recall he scored 0/5 , he was unable to recall words from earlier in the activity. The patient had a total score of 23/30. 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 Delayed recall was very difficult for the patient; other than that he was very oriented in all tasks. A: The patient complete tasks well and was willing to participate. His only difficulty was delayed recall. He may continue to benefit from therapy to work on his overall activity tolerance and maintain/increase independence in ADLs. P: Continue seeing patient BID during the week and one time per day over the weekend until discharge. ARABELLA
--- NOTE | 2016-05-01 16:57 | PT.PROG ---
Progress Note Progress Note: S. Patient stated that his back is sore this afternoon. O. Patient ambulated 175 feet to the therapy gym where he had heat to his back then performed exercises in the form of heel slides, quad sets, ankle pumps, straight leg raises, short arc quads all with 2# all x 10 bilaterally Patient used the nu-step x 10 minutes then was wheeled back to his room where he was left in bed with alarm and call light. A. Patient tolerated exercises well this afternoon. He continues to struggle with weakness and balance deficits. Patient ambulated with min assist, however was able to ambulate the full distance. Patient would continue to benefit from skilled therapy at this time. P. Continue POC.
[2016-05-01] MEDS: ATORVASTATIN 20 MG TABLET PO SCH (21:18)
[2016-05-02] MEDS: SILVER SULFADIAZINE 1% 25 GM CREAM TOPICAL SCH ×2 (08:09→20:13)
[2016-05-02] MEDS: ENOXAPARIN SODIUM 60 MG/0.6 ML SYRINGE SUBCUT SCH ×2 (08:09→20:13)
[2016-05-02] MEDS: TAMSULOSIN 0.4 MG CAPSULE PO SCH ×2 (08:10→20:13)
[2016-05-02] MEDS: DOCUSATE 100 MG CAPSULE PO SCH ×2 (08:10→20:12)
[2016-05-02] MEDS: LACTULOSE 20 GM PACKET PO SCH ×2 (08:10→20:14)
[2016-05-02] MEDS: CLOPIDOGREL 75 MG TABLET PO SCH (08:10)
[2016-05-02] MEDS: oxyCODONE ER 10 MG TAB PO SCH ×2 (08:10→20:13)
[2016-05-02] MEDS: GABAPENTIN 100 MG CAPSULE PO SCH ×3 (08:10→20:12)
--- NOTE | 2016-05-02 12:39 | OT.PROG ---
Progress Note Progress Note: S" Pt. seen from 929 to 10:15 with pt. moving form recliner chair to standing with use o FWW with CGA and min vc's for safety. Pt. ambulted form his room to the therapy gym with CGA and no rest breaks required. Pt. engaged in ther-ex on the MS New Step for 15 min of continuous ex's on Level 2 resistance. Pt. complete sit to stand transfer with use of FWW to w/c and rode back to his room secondary to fatigue. A: Pt. making good physical gains in therapy. P: Continue POC. Benjamín Gustafson OTD, OTR/L
[2016-05-02] MEDS: ATORVASTATIN 20 MG TABLET PO SCH (20:12)
[2016-05-03] MEDS: HYDROcodone-APAP 7.5 MG-325 MG TABLET PO PRN ×2 (01:46→20:50)
[2016-05-03 06:41] LABS: BLOOD UREA NITROGEN 8 mg/dL (7-22); BUN/CREATININE RATIO 13.33 (6-20); CALCIUM 8.6 mg/dL (8.7-10.7); CHLORIDE 106 meq/L (98-112); CREATININE 0.6 mg/dL (0.70-1.50); GLUCOSE 84 mg/dL (78-110); POTASSIUM 4.7 meq/L (3.8-5.2); SODIUM 137 meq/L (135-145)
[2016-05-03] MEDS: oxyCODONE ER 10 MG TAB PO SCH ×2 (09:42→21:27)
[2016-05-03] MEDS: TAMSULOSIN 0.4 MG CAPSULE PO SCH ×2 (09:43→20:51)
[2016-05-03] MEDS: CLOPIDOGREL 75 MG TABLET PO SCH (09:43)
[2016-05-03] MEDS: DOCUSATE 100 MG CAPSULE PO SCH ×2 (09:44→20:50)
[2016-05-03] MEDS: GABAPENTIN 100 MG CAPSULE PO SCH ×3 (09:44→20:50)
[2016-05-03] MEDS: LACTULOSE 20 GM PACKET PO SCH (10:01)
[2016-05-03] MEDS: ENOXAPARIN SODIUM 60 MG/0.6 ML SYRINGE SUBCUT SCH ×2 (10:05→20:49)
[2016-05-03] MEDS: SILVER SULFADIAZINE 1% 25 GM CREAM TOPICAL SCH ×3 (10:06→21:28)
[2016-05-03] MEDS ORDERED: LACTULOSE 20 GM PACKET PO PRN (11:51)
[2016-05-03] MEDS: ATORVASTATIN 20 MG TABLET PO SCH (20:50)
--- NOTE | 2016-05-04 08:17 | PDOC(PROG) ---
Date and Time of Service: 05/04/2016 8:14 AM Interval History: Subjective Patient still have some pain in his back but it seems to be controlled with the current pain medications. He is denying shortness of breath or pain in his chest. He did mention that he have some burning when he urinate that is been going on for 10 days. Objective : Data - Labs CBC and BMP: 04/27/16 05:45 05/03/16 06:24 Objective : Exam - General General Appearance: No Acute Distress, Cooperative - Head Head Exam: Normal Inspection, Atraumatic - Eye Eye Exam: Normal Appearance - ENT ENT Exam: Normal Exam - Neck Neck Exam: Normal Inspection - Respiratory Respiratory Exam: Clear to Auscultation - Bilaterally - Cardiovascular Cardiovascular Exam: RRR - GI/Abdominal GI/Abdominal Exam: Normal Bowel Sounds, Non Tender, Non Distended, Soft - Rectal Rectal Exam: Deferred - External Exam: Deferred - Extremities Extremities Exam: Normal Inspection - Back Back Exam: Normal Inspection - Neurological Neurological Exam: Alert, Oriented x 3, CN II-XII Intact - Psychiatric Psychiatric Exam: Normal Affect - Integumentary Integumentary Exam: Normal Color Assessment and Plan - Patient Problems (1) Compression fracture of L3 lumbar vertebra Current Visit: Yes Status: Chronic Comment: Continue pain medications and PT and OT. (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 Current Visit: Yes Status: Acute Comment: He did not see the oncologist because he ended up again in the hospital secondary to PE. Per the notes the family may decide on hospice. (3) Pulmonary embolism and infarction Current Visit: Yes Status: Acute Comment: he is on lovenox continue. (4) Dizziness Current Visit: Yes Status: Acute Comment: Had dizziness few days ago and that is improved now, an MRI is ordered for today.
[2016-05-04] MEDS: TAMSULOSIN 0.4 MG CAPSULE PO SCH ×2 (08:25→20:47)
[2016-05-04] MEDS: ENOXAPARIN SODIUM 60 MG/0.6 ML SYRINGE SUBCUT SCH ×2 (08:25→20:46)
[2016-05-04] MEDS: CLOPIDOGREL 75 MG TABLET PO SCH (08:25)
[2016-05-04] MEDS: GABAPENTIN 100 MG CAPSULE PO SCH ×3 (08:25→20:47)
[2016-05-04] MEDS: HYDROcodone-APAP 7.5 MG-325 MG TABLET PO PRN ×2 (08:25→15:09)
[2016-05-04] MEDS: oxyCODONE ER 10 MG TAB PO SCH ×2 (08:25→20:46)
[2016-05-04] MEDS: DOCUSATE 100 MG CAPSULE PO SCH ×2 (08:26→20:46)
--- NOTE | 2016-05-04 13:21 | DI ---
MRI BRAIN W/WO CN,05/04/2016 7:00 AM: Clinical History: Dizziness and prostate cancer. Previous Exam: Aug 21 2015 Findings: Multiplanar MR images are obtained through the brain with and without contrast (11 mL OptiMARK). There is no abnormally restricted diffusion. The parasellar region is unremarkable. Visualized intraorbital structures are unremarkable. The paranasal sinuses are unremarkable as well. Visualized portions of the upper cervical spine are unremarkable. There is some areas of increased FL AIR signal within the left cerebellar hemisphere and within the periventricular white matter. There i s also increased FLAIR signal within the parieto-occipital regions bilaterally. There is diffuse age-related volume loss. There are multiple small cystic areas within the basal ganglia. There is no abnormal enhancement. There is mild leftward deviation of the bony nasal septum. Impression: 1. Diffuse age-related volume loss and areas of old ischemia. 2. No evidence of enhancing mass.
[2016-05-04] MEDS: SILVER SULFADIAZINE 1% 25 GM CREAM TOPICAL SCH ×2 (15:10→20:47)
[2016-05-04] MEDS: POLYETHYLENE GLYCOL 3350 17 GM POWDER PO SCH (15:10)
--- NOTE | 2016-05-04 15:57 | PT.PROG ---
Progress Note Progress Note: S. Patient states that he is tired this morning. however will do therapy. O. Patient ambulated 175 feet to the therapy gym where he used the nu-step x 10 minutes then performed seated exercises in the form of; heel toe raises, marches , long arc quads, standing marches, hip extension/flexion all x 10 bilaterally ( 2#). sit to stands x 10. Patient ambulated 175 feet back to his room where he was left in chair with alarm and call light. A. Patient tolerated exercises well patient was able to increase weight on exercises and was able to ambulate full distance with SBG assist. Patient required short standing rest break on the way back to his room. Patient would continue to benefit from skilled therapy at this time. P. Continue POC.
--- NOTE | 2016-05-04 16:05 | OT.PROG ---
Progress Note Progress Note: S: pt was accompanied by friends but stated that he was ready to go down to therapy. pt still reports that he is feeling dizzy and doesn't know why. O: pt was seen in room and brought down for therapy by PT. After PT completed up their portion of tx pt completed ther ex while sitting up with 3# dumbbell in bicep flex, shoulder press, all x15 with BUE. After pt stood to attempt to completed balance activity he became very dizzy and needed to lie down. After that subsided he completed supine exercises with RTB in shoulder flex, IROT/ EROT and hor abd x15 with BUE. Pt completed transfer approx 150 ft with CGA for safety only. He completed bed mobility Ind and was left upright in bed and alarm on and call light within reach. A: pt's activity tolerance has improved as he is ambulating approx total of 300ft without fatigue. Continue to progress with strengthening and monitor balance. P: continue per plan of care.
--- NOTE | 2016-05-04 16:18 | OT PM DAY ---
Diagnosis : Weakness PM - Occupational Therapy S: The patient states he has been watching a bull sale most of the afternoon. He states he is ready for therapy and he does not need to use the restroom at this time. O: The patient completed functional transfer all the way to therapy, approximately 150 feet with contact guard assist for safety. He transferred from sit to stand and then transferred from sit to supine with modified independence as it took him longer to complete. He received an application of moist heat pack x15 minutes. He then completed therapeutic exercises with red theraband in shoulder extension, shoulder flexion, rows, and biceps flexion, all bilaterally x15 to increase his upper extremity strength. Once PT finished up their treatment, OT assisted with transferring the patient back to his room. We monitored his toilet transfer which he completed with modified independence as he required increased time. He completed hygiene at the sink for 5 minutes independently and returned to his bed. He completed bed mobility with modified independence. He was left in a supine position with bed alarm on and call light within reach. Family was also present. A: The patient completed therapy well today. He improved and demonstrated increased activity tolerance today. He ambulated much further today and his gait was much faster. P: Continue seeing patient BID during the week and one time per day over the weekend for upper extremity strengthening, ADLs, and overall functional mobility. ARABELLA
--- NOTE | 2016-05-04 16:33 | PT.PROG ---
Progress Note Progress Note: S: Pt states he is feeling well this afternoon. Reports his energy level is up from this morning and he is ready to participate in physical therapy. O: Pt ambulated 175' to PT gym using FWW w/ CGA for safety. Pt performed Nustep x 10 min. Pt performed STS x 10. Pt performed LAQ and seated marches bilaterally x 10 each. Pt performed UE arm bike x 10 min. Pt guided back to room ambulating 175' w/ FWW and CGA for safety. A: Pt tolerated this afternoon's PT session well. Able to complete all exercises w/o experiencing undo pain or fatigue. Continues to require skilled PT to maintain strength, ROM, and endurance. P: Continue to see pt 2x/day for skilled PT. Misha Aragon, SPT
[2016-05-04] MEDS: ATORVASTATIN 20 MG TABLET PO SCH (20:47)
[2016-05-05] MEDS: HYDROcodone-APAP 7.5 MG-325 MG TABLET PO PRN ×3 (05:47→23:29)
[2016-05-05 05:53] LABS: BILIRUBIN,URINE NEGATIVE (NEG); CLARITY,URINE CLEAR (CLEAR); GLUCOSE, URINE (UA) NEGATIVE (NEG); LEUKOCYTE ESTERASE ,URINE NEGATIVE (NEG); NITRATE,URINE NEGATIVE (NEG); PH,URINE 7.5 (5.0-8.5); PROTEIN,URINE NEGATIVE (NEG); UROBILINOGEN,URINE 0.2 EU/dL (0.2)
[2016-05-05 06:13] LABS: OCCULT BLOOD,URINE TRACE (NEG); URINE SAMPLE TYPE CLEAN CATCH URINE
[2016-05-05 06:32] LABS: BACTERIA,URINE RARE; SQUAMOUS EPITHELIAL CELL,UR FEW
[2016-05-05] MEDS: SILVER SULFADIAZINE 1% 25 GM CREAM TOPICAL SCH ×2 (08:16→21:07)
[2016-05-05] MEDS: oxyCODONE ER 10 MG TAB PO SCH ×2 (08:17→21:07)
[2016-05-05] MEDS: TAMSULOSIN 0.4 MG CAPSULE PO SCH ×2 (08:17→21:07)
[2016-05-05] MEDS: DOCUSATE 100 MG CAPSULE PO SCH ×2 (08:17→21:06)
[2016-05-05] MEDS: CLOPIDOGREL 75 MG TABLET PO SCH (08:17)
[2016-05-05] MEDS: ENOXAPARIN SODIUM 60 MG/0.6 ML SYRINGE SUBCUT SCH ×2 (08:17→21:07)
[2016-05-05] MEDS: GABAPENTIN 100 MG CAPSULE PO SCH ×3 (08:17→21:06)
[2016-05-05] MEDS: POLYETHYLENE GLYCOL 3350 17 GM POWDER PO SCH (08:18)
--- NOTE | 2016-05-05 10:24 | OT AM DAY ---
Diagnosis : Weakness AM - Occupational Therapy S: The patient reports that he had a pretty good weekend. O: Today we worked on generalized strengthening of the arms and the legs and functional balance. The patient transferred from supine to sit independently. He is now able to don and doff socks with min assist. The patient ambulated to therapy using wheeled walker. He did the new step x20 minutes, working upper and lower extremities followed by the upper body ergometer x10 minutes. He then transferred to the mat table where he performed sit to stands x20. He had two pound weights on his bilateral upper extremities and performed knee extensions, ankle flexion/extension, hip adduction with a ball, and red theraband resisted shoulder extension, rows, biceps curls, and internal/external rotation. The patient also worked on functional transfers with the walker from the mat to a chair four different times as well as balance activities. A: Overall the patient is making gains. P: Continue seeing patient BID during the week and one time per day over the weekend for upper extremity strengthening, ADLs, and overall functional mobility. ARABELLA
--- NOTE | 2016-05-05 12:06 | PT.PROG ---
Progress Note Progress Note: S. Patient stated that he is feeling good today and would like to go to the therapy gym. O. Patient ambulated 175 feet to the therapy gym where he used the nu-step x 15 minutes, then performed seated exercises in the form of; heel toe raises, marches, long arc quads, ball squeezes, clamshells, sit to stands, supine hip abduction/adduction, straight leg raises all with 3# x 15 bilaterally. Patient ambulated 175 feet back to his room where he was left in bed with alarm and call light. A. Patient tolerated exercises well this morning, Patient continues to have balance deficits and requires seated rest breaks to recover. Patient would continue to benefit from skilled therapy at this time. P. Continue POC.
--- NOTE | 2016-05-05 17:15 | PT.PROG ---
Progress Note Progress Note: S. Patient stated that he is feeling good this afternoon, his back is sore however would like to go to the therapy gym. O. Patient ambulate d175 feet to the the therapy gym where he had heat and performed exercises in the form for carmelita, #2 box step ups, long arc quads. Patient worked with OT then ambulated 175 feet back to his room where he was left in bed with alarm and call light. A. Patient tolerated exercises well, he continues to struggle with weakness, pain and balance deficits. He would continue to benefit from skilled therapy at this time. P. Continue POC.
[2016-05-05] MEDS: ATORVASTATIN 20 MG TABLET PO SCH (21:06)
[2016-05-06] MEDS: DOCUSATE 100 MG CAPSULE PO SCH ×2 (08:27→21:20)
[2016-05-06] MEDS: GABAPENTIN 100 MG CAPSULE PO SCH ×3 (08:27→21:20)
[2016-05-06] MEDS: TAMSULOSIN 0.4 MG CAPSULE PO SCH ×2 (08:27→21:20)
[2016-05-06] MEDS: POLYETHYLENE GLYCOL 3350 17 GM POWDER PO SCH (08:27)
[2016-05-06] MEDS: CLOPIDOGREL 75 MG TABLET PO SCH (08:27)
[2016-05-06] MEDS: ENOXAPARIN SODIUM 60 MG/0.6 ML SYRINGE SUBCUT SCH ×2 (08:27→21:21)
[2016-05-06] MEDS: SILVER SULFADIAZINE 1% 25 GM CREAM TOPICAL SCH ×2 (08:28→21:26)
[2016-05-06] MEDS: oxyCODONE ER 10 MG TAB PO SCH ×2 (08:30→21:12)
--- NOTE | 2016-05-06 12:12 | PT.PROG ---
Progress Note Progress Note: S. Patient stated that he is feeling good this morning. O. Patient ambulated 175 feet to the therapy gym where he used the nu-step x 15 minutes, seated long arc quads, heel toe raises, marches sit to stands, standing hip flexion/extension all x 10 bilaterally with 3#. Patient was left with OT for further therapy. A. Patient tolerated exercises well this afternoon, he struggled with fatigue with additional weight on his exercises. Patient would continue to benefit from skilled therapy to increase strength and mobility. P. Continue POC.
--- NOTE | 2016-05-06 12:21 | OT.PROG ---
Progress Note Progress Note: S: pt was in good spirits this morning but does report that his L hip is feeling weak today. O; pt was seen in therapy in am. He completed dyanamic balance task while sitting for 6-8 min and exercises with RTB only in bicep flex and bicep flex. pt also completed boxing activity while standing x3 sets,crossing midline with L and R. Pt returned back to his room walking with FFW and CGA for safety. He was left upright in bed and bed alarm on. A: pt's activity tolerance has increased as he can ambulate entire way to therapy and back. He did fatigue a little during boxing activity today and he needed to use the mat table for L hip stabalization. P: continue per plan of care.
[2016-05-06] MEDS: HYDROcodone-APAP 7.5 MG-325 MG TABLET PO PRN (12:59)
--- NOTE | 2016-05-06 15:58 | PT.PROG ---
Progress Note Progress Note: s. patient stated that his son would be coming to help him shower this afternoon. O. Patient used the nu-step x 15 minutes. A. Patient's son wanted to shower patient therefore hw as unable to perform more exercises. Patient tolerated nu-step well this afternoon. P. continue POC.
--- NOTE | 2016-05-06 16:22 | OT.PROG ---
Progress Note Progress Note: S; pt reports pain in the L hip O: pt was seen in his room. He was in supine position and completed bed mobility Ind. He completed postural transition from EOB to stand Ind and completed functional transfer approx 150 ft x2 with CGA for safety. Pt departed therapy early to take part in showering, requested by family. A: pt would continue to benefit from therapy to increase activity tolerance and decrease pain. P: continue per plan of care.
[2016-05-06] MEDS: ATORVASTATIN 20 MG TABLET PO SCH (21:20)
[2016-05-07] MEDS: HYDROcodone-APAP 7.5 MG-325 MG TABLET PO PRN ×2 (01:09→13:41)
[2016-05-07] MEDS: oxyCODONE ER 10 MG TAB PO SCH ×2 (08:53→20:41)
[2016-05-07] MEDS: GABAPENTIN 100 MG CAPSULE PO SCH ×3 (08:53→20:41)
[2016-05-07] MEDS: CLOPIDOGREL 75 MG TABLET PO SCH (08:54)
[2016-05-07] MEDS: TAMSULOSIN 0.4 MG CAPSULE PO SCH ×2 (08:54→20:41)
[2016-05-07] MEDS: DOCUSATE 100 MG CAPSULE PO SCH ×2 (08:54→20:41)
[2016-05-07] MEDS: ENOXAPARIN SODIUM 60 MG/0.6 ML SYRINGE SUBCUT SCH ×2 (08:54→20:55)
[2016-05-07] MEDS: POLYETHYLENE GLYCOL 3350 17 GM POWDER PO SCH (09:00)
[2016-05-07] MEDS: SILVER SULFADIAZINE 1% 25 GM CREAM TOPICAL SCH ×2 (09:00→20:55)
--- NOTE | 2016-05-07 09:54 | OT AM DAY ---
Diagnosis : Weakness AM - Occupational Therapy S: The patient states he had a pretty good night and he is ready for therapy. O: The patient was seen in his room. He completed upper extremity dressing independently. He also completed a toilet transfer independently and hygiene at the sink independently. He transferred all the way downstairs with front wheeled walker and contact guard assist. Once in therapy he completed therapeutic exercises in a supine position with yellow theraband in biceps flexion, shoulder extension, shoulder flexion, and rows, all x15 bilaterally to increase his upper extremity strength to assist with postural transitions. A: The patient would continue to benefit from therapy to increase his activity tolerance and strength. P: Continue seeing patient BID during the week and one time per day over the weekend for upper extremity strengthening, ADLs, and overall functional mobility. MTDD
--- NOTE | 2016-05-07 10:10 | OT PM DAY ---
Diagnosis : Weakness PM - Occupational Therapy S: The patient states that he had his pain meds. He reports that his left hip is hurting today. O: The patient was seen in his room; he was in a supine position. The patient completed bed mobility independently. He then completed a toilet transfer independently followed by hygiene at the sink independently. The patient then transferred to therapy, approximately 150 feet. The patient completed the new step x15 minutes to increase activity tolerance and overall motion of lower and upper extremities. The patient was left with moist heat on back and left hip to help decrease pain. PT then took over treatment. A: The patient's activity tolerance has increased. He will continue to benefit from therapy to increase his strength and decrease pain in his left hip and back. P: Continue seeing patient BID during the week and one time per day over the weekend until discharge. MANDYD
--- NOTE | 2016-05-07 13:36 | PT.PROG ---
Progress Note Progress Note: S. Patient stated that he is feeling good this morning. O. Patient ambulated 175 feet to the therapy gym where he performed exercises in the form of heel slides, quad sets, ankle pumps, straight leg raises, short arc quads, seated marches, long arc quads, heel toe raises, ball squeezes, clamshells all with 3# all x 15 bilaterally Patient used the nu-step x 15 minutes then ambulated 175 feet back to his room where he was left in bed with alarm and call light. A. Patient tolerated exercises well this morning. He continues to struggle with weakness and balance deficits, Patient ambulated with min assist, however was able to ambulate the full distance. Patient would continue to benefit from skilled therapy at this time. P. Continue POC.
--- NOTE | 2016-05-07 16:49 | PT.PROG ---
Progress Note Progress Note: S: Pt is doing well this afternoon. Granddaughter is present during therapy. Pt participated in OT prior to PT. O: Treatment consisted of: instruction in ther ex - seated resisted marching x 20, seated alt LAQ's x 20, resisted HS curl x 20, heel-toe raises x 20, resisted hip abd x 20, SAQ x 20, glut squeezes x 20, heel slides/quad sets x 20 ; functional activity - standing balance on air ex with RV TECHNICIAN x one on walker and CGA x 1 for safety with dynamic u/e movements 2 x 2 minutes; sit to stands x 5, ambulation x 150 feet. A: Kiko tolerated treatment fairly well - stated that his legs went numb when performing seated leg exercises. Able to tolerate 2 minutes of standing balance on airex before requiring rest break. P: Per POC.
[2016-05-07] MEDS: ATORVASTATIN 20 MG TABLET PO SCH (20:41)
[2016-05-08] MEDS: HYDROcodone-APAP 7.5 MG-325 MG TABLET PO PRN ×3 (02:47→12:58)
[2016-05-08] MEDS: oxyCODONE ER 10 MG TAB PO SCH ×2 (08:10→20:41)
[2016-05-08] MEDS: ENOXAPARIN SODIUM 60 MG/0.6 ML SYRINGE SUBCUT SCH ×2 (08:10→20:40)
[2016-05-08] MEDS: DOCUSATE 100 MG CAPSULE PO SCH ×2 (08:11→20:40)
[2016-05-08] MEDS: CLOPIDOGREL 75 MG TABLET PO SCH (08:11)
[2016-05-08] MEDS: TAMSULOSIN 0.4 MG CAPSULE PO SCH ×2 (08:11→20:40)
[2016-05-08] MEDS: GABAPENTIN 100 MG CAPSULE PO SCH ×3 (08:11→20:40)
[2016-05-08] MEDS: POLYETHYLENE GLYCOL 3350 17 GM POWDER PO SCH (08:12)
[2016-05-08] MEDS: SILVER SULFADIAZINE 1% 25 GM CREAM TOPICAL SCH ×2 (09:28→20:41)
--- NOTE | 2016-05-08 15:57 | OT.PROG ---
Progress Note Progress Note: S" I am doing okay." O: Pt. seen from 1430 to 1445 with pt. completing 3 set of 10 upper body exercise with the use of red t-band in the following pivots and seated EOM: shoulder flexion, abduction, and shoulder extension. Pt. then completing BUE ex' s on arm bike on min resistance 10 min each direction. Pt. completed therapy and ambulated back to his room SBA with use of FWW. A: Pt. making steady physical gains in therapy and his goal is to return home with family. P: Continue POC. Anu Gustafson OTD, OTR/L
--- NOTE | 2016-05-08 16:13 | PT.PROG ---
Progress Note Progress Note: S. Patient stated that he is feeling good this morning. O. Patient ambulated 175 feet to the therapy gym where he used the nu-step x 15 minutes, then performed seated exercises in the form of; heel toe raises, marches, long arc quads, clamshells and sit to stands all x10 bilaterally with 3 # weights. Patient ambulated 175 feet back to his room where he was left in bed with alarm and call light. A. Patient continues to tolerate exercises well. he is gaining strength and mobility however continues to get fatigued easily and would continue to benefit from skilled therapy at this time. P. Continue POC.
--- NOTE | 2016-05-08 16:16 | PT.PROG ---
Progress Note Progress Note: S. Patient stated that he is tired this afternoon. O. Patient ambulated 175 feet to the therapy gym where he used the nu-step x 15 minutes, then performed seated exercises in the form of; heel toe raises, marches, long arc quads, clamshells, box step ups (#2 box) and sit to stands all x10 bilaterally with 3# weights. Patient ambulated 175 feet back to his room where he was left in bed with alarm and call light. A. Patient continues to tolerate exercises well. He was very fatigued this afternoon and required frequent rest breaks. He would continue to benefit from skilled therapy at this time to gain strength, mobility and balance. P. Continue POC.
--- NOTE | 2016-05-08 16:32 | OT AM DAY ---
Diagnosis : Weakness AM - Occupational Therapy S: The patient states he had a good night and is ready for therapy. O: The patient was brought down to the therapy gym by PT. While receiving heat in a supine position the patient completed therapeutic exercises with red theraband in biceps flexion, shoulder flexion, shoulder extension, triceps extension, and internal/external rotation, all x15 bilaterally to increase his upper extremity strength to assist with postural transitions such as sit to stands. The patient was returned to his room. He was left supine in bed with bed alarm on and call light within reach. A: The patient will continue to benefit from therapy to maintain and increase his activity tolerance and strength. We will continue to monitor pain for comfort. P: Continue seeing patient BID during the week and one time per day over the weekend for upper extremity strengthening, ADLs, and overall functional mobility. MTDD
--- NOTE | 2016-05-08 16:39 | OT PM DAY ---
Diagnosis : Weakness PM - Occupational Therapy S: The patient states he would like some pain meds before coming down to therapy. Once his medication was administered, he was ready for therapy. O: The patient completed functional transfer from his bed to the toilet. He then completed toilet transfer and completed toileting independently as well as hygiene at the sink. He then completed functional transfer downstairs where he completed 15 minutes on the new step to increase his activity tolerance with no breaks. The patient then transferred over to table where he completed standing activity to increase balance and overall activity tolerance with his lower extremities. He also participated in red theraband resisted shoulder flexion, biceps flexion, rows, and horizontal abduction, all x15 bilaterally to increase his strength. The patient was returned to his room by PT. A: The patient would continue to benefit from therapy to increase his activity tolerance and to maintain strength. We will continue to monitor his pain in his back and hip. P: Continue seeing patient BID during the week and one time per day over the weekend for upper extremity strengthening, ADLs, and overall functional mobility. ARABELLA
[2016-05-08] MEDS: ATORVASTATIN 20 MG TABLET PO SCH (20:41)
[2016-05-09] MEDS: oxyCODONE ER 10 MG TAB PO SCH ×2 (08:40→20:15)
[2016-05-09] MEDS: HYDROcodone-APAP 7.5 MG-325 MG TABLET PO PRN ×2 (08:40→18:59)
[2016-05-09] MEDS: ENOXAPARIN SODIUM 60 MG/0.6 ML SYRINGE SUBCUT SCH ×2 (08:40→20:14)
[2016-05-09] MEDS: TAMSULOSIN 0.4 MG CAPSULE PO SCH ×2 (08:40→20:15)
[2016-05-09] MEDS: DOCUSATE 100 MG CAPSULE PO SCH ×2 (08:41→20:15)
[2016-05-09] MEDS: POLYETHYLENE GLYCOL 3350 17 GM POWDER PO SCH (08:41)
[2016-05-09] MEDS: GABAPENTIN 100 MG CAPSULE PO SCH ×3 (08:41→20:15)
[2016-05-09] MEDS: CLOPIDOGREL 75 MG TABLET PO SCH (08:41)
[2016-05-09] MEDS: SILVER SULFADIAZINE 1% 25 GM CREAM TOPICAL SCH ×2 (09:04→20:15)
--- NOTE | 2016-05-09 11:23 | PT.PROG ---
Progress Note Progress Note: S: Pt reports he is "getting there", states his family is [place] and he wishes he could be there. O: Treatment consisted of: UBE 07/31, NuStep 17', seated marches, LAQ both with 3 # ankle weights 30x each, green theraband resisted hip abduction 50x, green theraband resisted bicep curls and tricep extension 25x each. A: Pt tolerated treatment well today, was able to complete NuStep with only one rest beak. P: Continue per POC to address goals and objectives
--- NOTE | 2016-05-09 11:24 | PDOC(PROG) ---
Interval History: Doing well no complaints feels much stronger no nausea no vomiting no chest pain Objective : Data - Labs CBC and BMP: 04/27/16 05:45 05/03/16 06:24 Objective : Exam - General General Appearance: Cooperative - Neck Neck Exam: Normal Inspection, Full ROM - Respiratory Respiratory Exam: Clear to Auscultation - Bilaterally, Breathing Non Labored, Normal To Percussion - Cardiovascular Cardiovascular Exam: RRR, No Murmur, No Clicks - GI/Abdominal GI/Abdominal Exam: Normal Bowel Sounds, Non Tender, Non Distended - Extremities Extremities Exam: No Clubbing Present, No Edema Present, No Cyanosis Present - Neurological Neurological Exam: Alert, Oriented x 3, CN II-XII Intact, No Facial Droop Assessment and Plan - Patient Problems (1) Compression fracture of L3 lumbar vertebra Current Visit: Yes Status: Chronic (2) Constipation Current Visit: No Status: Acute (3) History of prostate cancer Current Visit: No Status: Acute (4) Liver metastasis Current Visit: Yes Status: Acute (5) Prostate cancer metastatic to bone Current Visit: Yes Status: Acute (6) Pulmonary embolism and infarction Current Visit: Yes Status: Acute - Assessment / Plan Additional Assessment/Plan Details: All medical issues seem to be doing well and are stable patient continues to strengthen with PT and OT
[2016-05-09] MEDS: ATORVASTATIN 20 MG TABLET PO SCH (20:15)
[2016-05-10] MEDS: SILVER SULFADIAZINE 1% 25 GM CREAM TOPICAL SCH ×2 (08:15→22:22)
[2016-05-10] MEDS: ENOXAPARIN SODIUM 60 MG/0.6 ML SYRINGE SUBCUT SCH ×2 (08:16→21:08)
[2016-05-10] MEDS: CLOPIDOGREL 75 MG TABLET PO SCH (08:16)
[2016-05-10] MEDS: HYDROcodone-APAP 7.5 MG-325 MG TABLET PO PRN (08:16)
[2016-05-10] MEDS: DOCUSATE 100 MG CAPSULE PO SCH ×2 (08:16→21:08)
[2016-05-10] MEDS: GABAPENTIN 100 MG CAPSULE PO SCH ×3 (08:16→21:08)
[2016-05-10] MEDS: TAMSULOSIN 0.4 MG CAPSULE PO SCH ×2 (08:16→21:08)
[2016-05-10] MEDS: POLYETHYLENE GLYCOL 3350 17 GM POWDER PO SCH (08:17)
[2016-05-10] MEDS: oxyCODONE ER 10 MG TAB PO SCH ×2 (08:17→21:08)
--- NOTE | 2016-05-10 10:23 | PT.PROG ---
Progress Note Progress Note: S: Pt reports he is doing well today,no new complaints. Wishes he could be helping on the ranch on this beautiful morning. O: Treatment consisted of: Ambulation 150'x2 with walker and CGA, NuStep 20', UBE 6' (3' forward, 3' backward), STS x10 to walker with CGA, Green theraband B bicep curls and tricep extensions x10 each, 3# LAQ and seated marching 20x each LE. A: Pt tolerated treatment well today, most notably Kiko was able to complete NuStep without rest breaks and at a constant pace. P: Continue to treat per POC to address goals and objectives.
[2016-05-10 11:42] LABS: BASOPHILS # (AUTO) 0.04 10*3/UL; BASOPHILS % (AUTO) 1.6 % (0-1); EOSINOPHILS % (AUTO) 3.1 % (0-8); HEMOGLOBIN 12.5 g/dL (14.0-18.0); IMM GRAN % (AUTO) 0.4 % (0-5); IMM GRAN# (AUTO) 0.01 10*3/UL; LYMPHOCYTES # (AUTO) 0.27 10*3/uL; LYMPHOCYTES % (AUTO) 10.5 % (10-50); MEAN CORPUSCULAR HEMOGLOBIN 31.2 PG (27-31); MEAN CORPUSCULAR HGB CONC 32.1 g/dL (33-37); MEAN PLATELET VOLUME 10.6 FL (7.4-12.2); MONOCYTES # (AUTO) 0.46 10*3/UL (0.3-0.8); NEUTROPHILS % (AUTO) 66.4 % (50-80); RDW COEFFICIENT OF VARIATION 15.8 % (11.5-14.5); RED BLOOD COUNT 4.01 10^6/uL (4.70-6.10); WHITE BLOOD COUNT 2.56 10^3/uL (4.8-10.8)
[2016-05-10 11:51] LABS: PLATELET MORPHOLOGY COMMENT NORMAL MORPHOLOGY (NORM)
[2016-05-10 11:54] LABS: BILIRUBIN,TOTAL 0.3 mg/dL (0.3-1.2); BUN/CREATININE RATIO 14.28 (6-20); CALCIUM 8.8 mg/dL (8.7-10.7); CREATININE 0.7 mg/dL (0.70-1.50); POTASSIUM 4.2 meq/L (3.8-5.2); TOTAL PROTEIN 5.4 g/dL (6.1-8.0)
[2016-05-10] MEDS: ATORVASTATIN 20 MG TABLET PO SCH (21:09)
[2016-05-11] MEDS: HYDROcodone-APAP 7.5 MG-325 MG TABLET PO PRN ×3 (04:18→16:19)
[2016-05-11] MEDS: ENOXAPARIN SODIUM 60 MG/0.6 ML SYRINGE SUBCUT SCH ×2 (08:27→20:46)
[2016-05-11] MEDS: CLOPIDOGREL 75 MG TABLET PO SCH (08:28)
[2016-05-11] MEDS: GABAPENTIN 100 MG CAPSULE PO SCH ×3 (08:28→20:47)
[2016-05-11] MEDS: DOCUSATE 100 MG CAPSULE PO SCH ×2 (08:28→20:46)
[2016-05-11] MEDS: TAMSULOSIN 0.4 MG CAPSULE PO SCH ×2 (08:28→20:46)
[2016-05-11] MEDS: SILVER SULFADIAZINE 1% 25 GM CREAM TOPICAL SCH ×2 (08:28→20:47)
[2016-05-11] MEDS: POLYETHYLENE GLYCOL 3350 17 GM POWDER PO SCH (08:29)
[2016-05-11] MEDS: oxyCODONE ER 10 MG TAB PO SCH ×2 (08:29→20:46)
--- NOTE | 2016-05-11 11:37 | PT.PROG ---
Progress Note Progress Note: S. Patient stated that he is feeling good this morning. O. Patient ambulated 175 feet to the therapy gym where he used the nu-step x 15 minutes then performed exercises in the form of; long arc quads, marches, straight leg raises, hip abduction/adduction, short arc quads all x 20 with 3# weights. Patient performed box step ups with #2 box x 15. Patient ambulated 175 feet to his room where he was left in bed with alarm and call light. A. Patient continues to make gains with strength and mobility. Patient requires short seated rest breaks to complete exercises. Patient would continue to benefit from strengthening, balance and endurance. P. Continue POC.
--- NOTE | 2016-05-11 16:21 | PT.PROG ---
Progress Note Progress Note: S. Patient stated that he is feeling good today. O. Patient ambulated 175 feet to the therapy gym where he used the nu-step x 15 minutes then performed exercises in the form of; marches, heel toe raises, long arc quads, ball squeezes, clamshells, resisted knee flexion, sit to stands, standing marches, hip flexion/extension all x 20 with 3# weight. minute drills 2x30 seconds. Patient ambulated 50 feet outside and then 200 feet back to his room where he was left in bed with alarm and call light. A. Patient tolerated exercises well this afternoon he was very fatigued after exercises today. Patient continues to struggle with endurance and balance. Patient would continue to benefit from skilled therapy to increase strength, mobility and endurance. P. Continue POC.
[2016-05-11] MEDS: ATORVASTATIN 20 MG TABLET PO SCH (20:46)
[2016-05-12 06:30] LABS: BASOPHILS # (AUTO) 0.04 10*3/UL; BASOPHILS % (AUTO) 1.7 % (0-1); EOSINOPHILS % (AUTO) 6.8 % (0-8); HEMATOCRIT 39.5 % (42.0-52.0); HEMOGLOBIN 12.7 g/dL (14.0-18.0); IMM GRAN % (AUTO) 0.4 % (0-5); IMM GRAN# (AUTO) 0.01 10*3/UL; LYMPHOCYTES # (AUTO) 0.52 10*3/uL; LYMPHOCYTES % (AUTO) 22.1 % (10-50); MEAN CORPUSCULAR HEMOGLOBIN 31.2 PG (27-31); MEAN CORPUSCULAR HGB CONC 32.2 g/dL (33-37); MEAN PLATELET VOLUME 10.2 FL (7.4-12.2); MONOCYTES # (AUTO) 0.54 10*3/UL (0.3-0.8); NEUTROPHILS # (AUTO) 1.08 10*3/UL; RDW COEFFICIENT OF VARIATION 15.6 % (11.5-14.5); RED BLOOD COUNT 4.07 10^6/uL (4.70-6.10); WHITE BLOOD COUNT 2.35 10^3/uL (4.8-10.8)
[2016-05-12 06:31] LABS: PLATELET MORPHOLOGY COMMENT NORMAL MORPHOLOGY (NORM)
[2016-05-12 06:41] LABS: BILIRUBIN,TOTAL 0.4 mg/dL (0.3-1.2); BUN/CREATININE RATIO 12.85 (6-20); CALCIUM 8.8 mg/dL (8.7-10.7); CREATININE 0.7 mg/dL (0.70-1.50); POTASSIUM 4.4 meq/L (3.8-5.2); TOTAL PROTEIN 5.2 g/dL (6.1-8.0)
[2016-05-12] MEDS: HYDROcodone-APAP 7.5 MG-325 MG TABLET PO PRN (08:41)
[2016-05-12] MEDS: CLOPIDOGREL 75 MG TABLET PO SCH (08:42)
[2016-05-12] MEDS: DOCUSATE 100 MG CAPSULE PO SCH ×2 (08:42→20:29)
[2016-05-12] MEDS: oxyCODONE ER 10 MG TAB PO SCH ×2 (08:42→20:30)
[2016-05-12] MEDS: TAMSULOSIN 0.4 MG CAPSULE PO SCH ×2 (08:43→20:30)
[2016-05-12] MEDS: GABAPENTIN 100 MG CAPSULE PO SCH ×3 (08:43→20:29)
[2016-05-12] MEDS: ENOXAPARIN SODIUM 60 MG/0.6 ML SYRINGE SUBCUT SCH ×2 (10:11→20:30)
[2016-05-12] MEDS: POLYETHYLENE GLYCOL 3350 17 GM POWDER PO SCH (10:18)
[2016-05-12] MEDS: SILVER SULFADIAZINE 1% 25 GM CREAM TOPICAL SCH ×2 (10:18→20:40)
--- NOTE | 2016-05-12 12:28 | OT PM DAY ---
Diagnosis : Weakness PM - Occupational Therapy S: The patient appeared to be in good spirits. He stated that he had a pretty good weekend. O: The patient was seen in therapy. He performed upper extremity exercises with red theraband in all ranges x15 bilaterally in shoulder flexion, shoulder extension, internal/external rotation, biceps flexion, rows, and horizontal abduction. A: The patient will continue to benefit from therapy to increase his overall activity tolerance and to maintain function. We will continue to monitor his independence with ADLs. P: Continue seeing patient BID during the week and one time per day over the weekend for upper extremity strengthening, ADLs, and overall functional mobility. MTDD
--- NOTE | 2016-05-12 16:20 | OT AM DAY ---
Diagnosis : Weakness AM - Occupational Therapy S: The patient reports he is doing pretty well today. O: Today we worked on functional activities and strengthening activities. The patient was able to stand for five minutes with contact guard assist. He completed nuts and bolts activity while standing. The patient then transferred to wall pulleys and sat while he performed shoulder extension, adduction, rows, internal/external rotation, and biceps curls with two kilograms x15 repetitions each bilaterally. A: Overall the patient would benefit from more standing tasks and functional reaching tasks and improving his overall strength and activity tolerance. P: Continue seeing patient BID during the week and one time per day over the weekend for upper extremity strengthening, ADLs, and overall functional mobility. ARABELLA
--- NOTE | 2016-05-12 16:58 | OT.PROG ---
Progress Note Progress Note: S: pt stated he was ready for therapy and he did not need to use RR before leaving for therapy. O: pt was seen in his room and nursing administered meds and completed vitals . pt completed functional transfer approx 150 ft with CGA for safety. Pt completed 7 min on UE to increase activity tolerance. Pt completed transfer to mat table Ind but with CGA for safety. pt completed wall pulleys in seated position in all ranges with 2-3k x15 with BUE's. Pt did complete IROT/EROT with GTB x15 with BUE as well. pt completed #2 box to increase strength of LE' s and increase overall function. A: pt would continue to benefit from therapy to increase overall function and strength to prepare him for possible return to home. P: Continue per plan of care.
--- NOTE | 2016-05-12 17:03 | OT.PROG ---
Progress Note Progress Note: S: pt stated he would like a shower today, and reports less pain in leg today. O: pt was seen in therapy after PT finished up treatment he transferred upstairs to room approx 150 ft. Set up for shower was completed for him. He completed showering activity with SBA mainly for safety. He completed doffing Of clothing with mod Ind and donning of clothing with Min A, as he needed assistance with donning of LE socks. He returned to his room and completed bed mobility Ind and left in bed with call light within reach. A: pt completed showering task well with just some assistance with set up and safety transitioning from sit to stand safety while showering. continue to progress with all activities to maintain/increase overall function. P: continue per plan of care.
[2016-05-12] MEDS: ATORVASTATIN 20 MG TABLET PO SCH (20:30)
[2016-05-13] MEDS: ENOXAPARIN SODIUM 60 MG/0.6 ML SYRINGE SUBCUT SCH ×2 (08:49→20:41)
[2016-05-13] MEDS: oxyCODONE ER 10 MG TAB PO SCH ×2 (08:50→20:41)
[2016-05-13] MEDS: DOCUSATE 100 MG CAPSULE PO SCH ×2 (08:50→20:41)
[2016-05-13] MEDS: POLYETHYLENE GLYCOL 3350 17 GM POWDER PO SCH (08:50)
[2016-05-13] MEDS: CLOPIDOGREL 75 MG TABLET PO SCH (08:50)
[2016-05-13] MEDS: TAMSULOSIN 0.4 MG CAPSULE PO SCH ×2 (08:50→20:41)
[2016-05-13] MEDS: GABAPENTIN 100 MG CAPSULE PO SCH ×3 (08:50→20:41)
[2016-05-13] MEDS: SILVER SULFADIAZINE 1% 25 GM CREAM TOPICAL SCH ×2 (09:06→20:42)
--- NOTE | 2016-05-13 12:14 | PT.PROG ---
Progress Note Progress Note: S. Patient stated that he would like to go to the therapy gym this morning. O. Patient ambulated 175 feet to the therapy gym where he used the nu-step x 15 minutes then performed seated exercises in the form of; heel toe raises,marches , long arc quads, ball squeezes, resisted knee flexion, sit to stands all x 20 bilaterally with 3#. Patient performed standing balance exercises x 3 minutes. then was left with OT for further therapy. A. Patient continues to make gains with strength and mobility however continues to struggle with balance. Patient ambulated with 4 wheeled walker this morning. Patient would continue to benefit from skilled therapy at this time. P. continue POC.
--- NOTE | 2016-05-13 13:33 | PDOC(PROG) ---
Date and Time of Service: 05/13/2016 1:30 PM Interval History: Subjective Patient denying new symptoms. His pain seemed to be controlled with current pain medication. No other symptoms bowels and bladder seems to be okay. He is working with physical therapy. Objective : Data - Labs CBC and BMP: 05/12/16 06:12 05/12/16 06:12 Objective : Exam - General General Appearance: No Acute Distress, Cooperative - Head Head Exam: Normal Inspection - Eye Eye Exam: Normal Appearance - ENT ENT Exam: Normal Exam - Neck Neck Exam: Normal Inspection - Respiratory Respiratory Exam: Clear to Auscultation - Bilaterally - Cardiovascular Cardiovascular Exam: RRR - GI/Abdominal GI/Abdominal Exam: Normal Bowel Sounds, Non Tender, Non Distended, Soft - Rectal Rectal Exam: Deferred - External Exam: Deferred - Extremities Extremities Exam: Normal Inspection - Back Back Exam: Normal Inspection - Neurological Neurological Exam: Alert, Oriented x 3, CN II-XII Intact - Psychiatric Psychiatric Exam: Normal Affect - Integumentary Integumentary Exam: Normal Color Assessment and Plan - Patient Problems (1) Compression fracture of L3 lumbar vertebra Current Visit: Yes Status: Chronic Comment: Continue current pain medications. (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 Current Visit: Yes Status: Acute Comment: Same pain medication. May need follow-up with oncology later on as an outpatient if okay with his family. (3) Pulmonary embolism and infarction Current Visit: Yes Status: Acute Comment: Continue Lovenox (4) Dizziness Current Visit: Yes Status: Acute Comment: This is resolved
--- NOTE | 2016-05-13 17:13 | PT.PROG ---
Progress Note Progress Note: S. Patient stated that he is feeling good this afternoon and would like to go to the therapy gym. O. Patient ambulated 175 feet to the the therapy gym where he performed exercises in the form for marches, long arc quads, heel toe raises, hip abduction/adduction, all x 20 bilaterally. Patient worked with OT then ambulated 175 feet back to his room where he was left in bed with alarm and call light. A. Patient tolerated exercises well, he continues to struggle with weakness, pain and balance deficits. He would continue to benefit from skilled therapy at this time. P. Continue POC.
[2016-05-13] MEDS: ATORVASTATIN 20 MG TABLET PO SCH (20:41)
[2016-05-14] MEDS: oxyCODONE ER 10 MG TAB PO SCH ×2 (08:15→20:44)
[2016-05-14] MEDS: DOCUSATE 100 MG CAPSULE PO SCH ×2 (08:15→20:44)
[2016-05-14] MEDS: GABAPENTIN 100 MG CAPSULE PO SCH ×3 (08:15→20:44)
[2016-05-14] MEDS: TAMSULOSIN 0.4 MG CAPSULE PO SCH ×2 (08:15→20:44)
[2016-05-14] MEDS: CLOPIDOGREL 75 MG TABLET PO SCH (08:15)
[2016-05-14] MEDS: ENOXAPARIN SODIUM 60 MG/0.6 ML SYRINGE SUBCUT SCH ×2 (08:15→20:44)
[2016-05-14] MEDS: POLYETHYLENE GLYCOL 3350 17 GM POWDER PO SCH (08:16)
[2016-05-14] MEDS: SILVER SULFADIAZINE 1% 25 GM CREAM TOPICAL SCH ×2 (08:16→21:48)
--- NOTE | 2016-05-14 10:48 | OT.PROG ---
Progress Note Progress Note: S: pt was in bed and ready for therapy. O: pt completed bed mobility mod I. He completed upper extremity dressing with SBA and lower extremity dressing with 10 % assist to get pants over his socks. pt than completed toileting with CGA for safety only. pt ambulated to therapy 150 feet and completed the arm bike 3/3. A: pt did well today and tolerated therapy. he is completing ADL's with minimal assistance and improving. P: pt continues to benefit from skilled therapy to increase safety with ADL's and transfers.
--- NOTE | 2016-05-14 16:04 | OT PM DAY ---
Diagnosis : Weakness PM - Occupational Therapy S: The patient states he is excited to go outside to do his session in the sun. O: Treatment today consisted of red theraband resisted exercises including triceps extension, biceps curls, shoulder extension, shoulder adduction, and shoulder abduction, all bilaterally x25. The patient then performed red power web for grasp bilaterally. The patient initiated and completed all exercises. A: The patient still demonstrates poor endurance during activities. P: Continue seeing patient BID during the week and one time per day over the weekend for upper extremity strengthening, ADLs, and overall functional mobility. Dictated by: ILDA Santiago Supervised by: Emi Gutierrez OTR/Jose BELL
--- NOTE | 2016-05-14 16:24 | OT.PROG ---
Progress Note Progress Note: S: pt was in good spirits, he did report back pain on Lower right side. He also reported that he is trying not to take as many pain meds. O: pt was seen in his room, he was in supine position, completed bed mobility Ind. He completed transfer toilet with CGa for safety but completed toileting Ind and hygiene at sink iNd. He completed transfer downstairs for PT. He completed UE execises while outside with RTB in all ranges x25 all with BUE with no limitations. Pt returned to his room and was left upright in bed with call light within reach. A: pt fatigued toward end of tx today and was relieved to return to his bed. He did complete a lot of ambulation today. UE's are quite strong which assist him with postural transitions. He still has been completing toileting Ind. Continue to progress as tolerated and monitor pain in back. P: Continue per plan of care.
--- NOTE | 2016-05-14 16:25 | PT PM DAY ---
Diagnosis : WEAKNESS PM - Physical Therapy S: Patient stated that he is feeling good this afternoon, and that he would like to go to the therapy gym. O: Patient ambulated 175 ft to the therapy gym, where he used the Nustep for 15 minutes. Patient then performed exercises in the form of: long arc quads , heel toe raises, marches, ball squeezes, clam shells, resisted knee flexion, and sit to stands, all performed 20 times bilaterally with 3 pound weights. Patient also performed standing marches, hip ab and abduction, and flexion extension all 10 times bilaterally with 3 pound weights. A: Patient continues to gain strength and mobility, however continues to struggle with balance. Patient would benefit from continued skilled therapy at this time. P: Continue seeing patient BID during the week and one time per day over the weekend for transfers, ambulation, and range of motion/strengthening exercises. MTDD
--- NOTE | 2016-05-14 16:47 | OT AM DAY ---
Diagnosis : Weakness AM - Occupational Therapy S: The patient reports no new changes. O: The patient worked on standing activity while finding nuts and different types of bolts. We completed a matching game with this and the patient was able to stand for approximately 7 minutes. The patient became very fatigued after this and requested to have a break. He still had a couple more nuts and bolts to find, but was fatigued and needed to rest. He completed upper extremity strengthening activities while seated including wall pulleys with two kilograms for shoulder extension, rows, biceps curls, and internal/external rotation x15-20 repetitions bilaterally. The patient needed a 5 minute rest break before completing upper extremity strengthening secondary to fatigue from standing. A: The patient did demonstrate some safety concerns when backing out of the standing activity. We will continue to work on some of these functional type things in future sessions. P: Continue seeing patient BID during the week and one time per day over the weekend for upper extremity strengthening, ADLs, and overall functional mobility. ARABELLA
[2016-05-14] MEDS: ATORVASTATIN 20 MG TABLET PO SCH (20:44)
[2016-05-15] MEDS: POLYETHYLENE GLYCOL 3350 17 GM POWDER PO SCH (08:36)
[2016-05-15] MEDS: SILVER SULFADIAZINE 1% 25 GM CREAM TOPICAL SCH ×2 (08:36→22:54)
[2016-05-15] MEDS: ENOXAPARIN SODIUM 60 MG/0.6 ML SYRINGE SUBCUT SCH ×2 (08:36→21:11)
[2016-05-15] MEDS: TAMSULOSIN 0.4 MG CAPSULE PO SCH ×2 (08:37→21:12)
[2016-05-15] MEDS: oxyCODONE ER 10 MG TAB PO SCH ×2 (08:37→21:12)
[2016-05-15] MEDS: CLOPIDOGREL 75 MG TABLET PO SCH (08:37)
[2016-05-15] MEDS: GABAPENTIN 100 MG CAPSULE PO SCH ×3 (08:37→21:12)
[2016-05-15] MEDS: DOCUSATE 100 MG CAPSULE PO SCH ×2 (08:37→21:12)
--- NOTE | 2016-05-15 12:00 | PT.PROG ---
Progress Note Progress Note: S. Patient stated that he is feeling good this morning and would like to go to the therapy gym. O. Patient ambulated 175 feet to the therapy gym where he used the nu-step x 30 minutes then performed exercises in the form of; sit to stands and box step ups (#3 box), x 10. Patient ambulated 175 feet back to his room where he was left in his bed with alarm and call light. A. Patient tolerated exercises well this morning, he continues to benefit from skilled therapy, he continues to struggle with balance and weakness. P. Continue POC.
--- NOTE | 2016-05-15 14:48 | PT AM DAY ---
Diagnosis : Weakness AM - Physical Therapy S: The patient reports no new changes. O: The patient was seen today for cardiovascular activities, upper and lower extremity strengthening, and transfer training. A: The patient has shown significant improvement in his overall mobility, his ability to stand and ambulate on those legs, and balance. P: Continue seeing patient BID during the week and one time per day over the weekend for transfers, ambulation, and range of motion/strengthening exercises. MTDD
--- NOTE | 2016-05-15 15:18 | PT PM DAY ---
Diagnosis : Weakness PM - Physical Therapy S: The patient reports he feels like he is getting better everyday. O: Today's therapy consisted of the patient ambulating all the way downstairs to therapy from his room with gait belt, contact guard assistance, and walker. He participated in the following therapeutic exercises and functional activities including the NuStep x30 minutes followed by theraband resisted long arc quads and hamstring curls, sit to stands, bridges, straight leg raises, and hip abduction/adduction. This was followed by participating with occupational therapy. A: The patient was in a pleasant mood and was willing to work hard. P: Continue seeing patient BID during the week and one time per day over the weekend for transfers, ambulation, and range of motion/strengthening exercises. ARABELLA
--- NOTE | 2016-05-15 16:33 | PT.PROG ---
Progress Note Progress Note: S. Patient states that he is feeling good this afternoon. O. Patient ambulated 175 feet to the therapy gym where he used the nu-step x 10 minutes then performed seated exercises in the form of; heel toe raises, marches , long arc quads, standing marches, hip extension/flexion all x 10 bilaterally ( 2#). sit to stands x 10. Patient ambulated 175 feet back to his room where he was left in bed with alarm and call light. A. Patient tolerated exercises well this afternoon, patient didn't do as much this afternoon due to care conference. Patient required short seated rest breaks during exercises. Patient would continue to benefit from skilled therapy at this time. P. Continue POC.
--- NOTE | 2016-05-15 16:56 | OT.PROG ---
Progress Note Progress Note: S: pt stated he had a good night, reported that pain in lower back is better today. O: pt was seen in therapy in the a.m. after PT brought him for therapy. Pt was seen for strengthening Of the UE with RTB in all ranges x15 to assist with postural transitions. Pt was returned to his room by PT. A: pt would continue to benefit from therapy to increase function with bed mobility and ambulating on uneven surfaces. P: continue per plan of care.
--- NOTE | 2016-05-15 17:02 | OT.PROG ---
Progress Note Progress Note: S: pt stated he wants to go home and knows there is a care conference for him this afternoon. O; pt was seen in his room and completed transfer downstairs and completed 10 min on Nu step to increase activity tolerance. He completed transfer to mat table and completed #2 box x20, air ex for up to 5 min to increase balance on uneven surfaces. He completed a total of transfers x300 ft with CGA for safety. UE strengthening with a 2# dumb monroe in bicep flex x15 and shoulder press x10 with BUE's. A: pt may continue to benefit from therapy to increase overall function with uneven surfaces and ensure that pt can complete bed mobility Ind. May also assess how pt completes backing up to seats safely and effectively. P: Continue per plan of care.
[2016-05-15] MEDS: ATORVASTATIN 20 MG TABLET PO SCH (21:11)
[2016-05-16] MEDS: ENOXAPARIN SODIUM 60 MG/0.6 ML SYRINGE SUBCUT SCH ×2 (08:19→21:09)
[2016-05-16] MEDS: oxyCODONE ER 10 MG TAB PO SCH ×2 (08:19→21:09)
[2016-05-16] MEDS: TAMSULOSIN 0.4 MG CAPSULE PO SCH ×2 (08:19→21:09)
[2016-05-16] MEDS: CLOPIDOGREL 75 MG TABLET PO SCH (08:20)
[2016-05-16] MEDS: SILVER SULFADIAZINE 1% 25 GM CREAM TOPICAL SCH ×2 (08:20→21:10)
[2016-05-16] MEDS: DOCUSATE 100 MG CAPSULE PO SCH ×2 (08:20→21:09)
[2016-05-16] MEDS: GABAPENTIN 100 MG CAPSULE PO SCH ×3 (08:20→21:09)
[2016-05-16] MEDS: POLYETHYLENE GLYCOL 3350 17 GM POWDER PO SCH (08:41)
--- NOTE | 2016-05-16 10:57 | PT.PROG ---
Progress Note Progress Note: S: Pt reports he is doing very well today. Ready to participate in today's exercise session. O: Pt ambulated x 100 using FWW and CGA for safety. Pt performed Nustep x 30 min. Pt returned back to room and left in comfortable position w/ call light. A: Tolerated session well. Continues to require skilled pt to improve strength , endurance, functional mobility. P: Continue to see pt for PT as he progresses toward d/c. Misha Aragon, SPT
[2016-05-16] MEDS: ATORVASTATIN 20 MG TABLET PO SCH (21:09)
--- NOTE | 2016-05-17 08:03 | PDOC(PROG) ---
Date and Time of Service: 05/17/2016 7:57 AM Interval History: Subjective Patient denying new symptoms, the pain in his back seemed to be improving every day. He is walking with physical therapy twice a day. Objective : Data - Labs CBC and BMP: 05/12/16 06:12 05/12/16 06:12 Objective : Exam - General General Appearance: No Acute Distress, Cooperative - Head Head Exam: Normal Inspection - Eye Eye Exam: Normal Appearance - ENT ENT Exam: Normal Exam - Neck Neck Exam: Normal Inspection - Respiratory Respiratory Exam: Clear to Auscultation - Bilaterally - Cardiovascular Cardiovascular Exam: RRR - GI/Abdominal GI/Abdominal Exam: Normal Bowel Sounds, Non Tender, Non Distended, Soft - Rectal Rectal Exam: Deferred - External Exam: Deferred - Extremities Extremities Exam: Normal Inspection - Back Back Exam: Normal Inspection - Neurological Neurological Exam: Alert, Oriented x 3, CN II-XII Intact, Moves All Extremities Equally - Psychiatric Psychiatric Exam: Normal Affect Assessment and Plan - Patient Problems (1) Compression fracture of L3 lumbar vertebra Current Visit: Yes Status: Chronic Comment: Pain seemed to be controlled with current pain medication continue (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 Current Visit: Yes Status: Acute Comment: May need follow-up with oncology if the family and he agrees postdischarge (3) Pulmonary embolism and infarction Current Visit: Yes Status: Acute Comment: Continue Lovenox (4) Dizziness Current Visit: Yes Status: Acute Comment: Resolved
[2016-05-17] MEDS: ENOXAPARIN SODIUM 60 MG/0.6 ML SYRINGE SUBCUT SCH ×2 (08:18→20:14)
[2016-05-17] MEDS: oxyCODONE ER 10 MG TAB PO SCH ×2 (08:19→20:12)
[2016-05-17] MEDS: DOCUSATE 100 MG CAPSULE PO SCH ×2 (08:19→20:12)
[2016-05-17] MEDS: GABAPENTIN 100 MG CAPSULE PO SCH ×3 (08:19→20:13)
[2016-05-17] MEDS: TAMSULOSIN 0.4 MG CAPSULE PO SCH ×2 (08:19→20:13)
[2016-05-17] MEDS: CLOPIDOGREL 75 MG TABLET PO SCH (08:19)
[2016-05-17] MEDS: SILVER SULFADIAZINE 1% 25 GM CREAM TOPICAL SCH ×2 (08:26→22:48)
[2016-05-17] MEDS: POLYETHYLENE GLYCOL 3350 17 GM POWDER PO SCH (08:27)
--- NOTE | 2016-05-17 10:27 | PT.PROG ---
Progress Note Progress Note: S: Pt reports he is feeling well today and is ready to participate in physical therapy. O: Pt ambulated 200' w/ FWW and CGA for safety to PT gym. Pt performed Nustep x 20 min. Pt performed balloon activites to improve U/LE coordination. Pt performed UE arm bike x 10 min. Pt ambulated 200' ft back to room and was put back into bed in comfortable position with call light. A: Pt tolerated session well. Continues to require skilled PT to improve strength, ROM, functional mobility. P: Continue to see PT 2x/day as pt progresses toward discharge. Misha Aragon, SPT
[2016-05-17] MEDS: ATORVASTATIN 20 MG TABLET PO SCH (20:13)
[2016-05-18] MEDS: CLOPIDOGREL 75 MG TABLET PO SCH (08:24)
[2016-05-18] MEDS: TAMSULOSIN 0.4 MG CAPSULE PO SCH ×2 (08:24→21:19)
[2016-05-18] MEDS: oxyCODONE ER 10 MG TAB PO SCH ×2 (08:24→21:20)
[2016-05-18] MEDS: HYDROcodone-APAP 7.5 MG-325 MG TABLET PO PRN (08:26)
[2016-05-18] MEDS: DOCUSATE 100 MG CAPSULE PO SCH ×2 (08:27→21:19)
[2016-05-18] MEDS: GABAPENTIN 100 MG CAPSULE PO SCH ×3 (08:27→21:19)
[2016-05-18] MEDS: ENOXAPARIN SODIUM 60 MG/0.6 ML SYRINGE SUBCUT SCH ×2 (08:34→21:20)
[2016-05-18] MEDS: POLYETHYLENE GLYCOL 3350 17 GM POWDER PO SCH (10:05)
[2016-05-18] MEDS: SILVER SULFADIAZINE 1% 25 GM CREAM TOPICAL SCH ×2 (10:05→22:17)
--- NOTE | 2016-05-18 13:34 | PDOC(PROG) ---
Date and Time of Service: 05/18/2016, 1315 Interval History: States his back pain is much better. Doing better with physical therapy. Aiming to go home this week. I spoke with dietary and the patient's weight is down close to 8% during this admission so we will start Megace. Objective : Data - Labs CBC and BMP: 05/12/16 06:12 05/12/16 06:12 Labs - Last 24 Hours: Vital Signs - Last Taken Temperature 97.4 F 05/18/16 06:38 Pulse Rate 65 05/18/16 06:38 Respiratory Rate 18 05/18/16 06:38 Blood Pressure 161/78 05/18/16 06:38 Pulse Ox 92 05/18/16 06:38 Weight has dropped from 129 pounds 218 pounds. Objective : Exam - General General Appearance: No Acute Distress, Cooperative Additional General Exam Details: Vital Signs - Last Taken Temperature 97.4 F 05/18/16 06:38 Pulse Rate 65 05/18/16 06:38 Respiratory Rate 18 05/18/16 06:38 Blood Pressure 161/78 05/18/16 06:38 Pulse Ox 92 05/18/16 06:38 - Head Head Exam: Normal Inspection, Normocephalic, Atraumatic - Eye Eye Exam: No Scleral Icterus - Respiratory Respiratory Exam: Clear to Auscultation - Bilaterally, Breathing Non Labored - Cardiovascular Cardiovascular Exam: RRR, No Murmur, No Clicks, No Gallops, No Rubs, No JVD - GI/Abdominal GI/Abdominal Exam: Normal Bowel Sounds, Non Tender, Non Distended, Soft - Extremities Extremities Exam: No Clubbing Present, No Edema Present, No Cyanosis Present - Neurological Neurological Exam: Alert, Oriented x 3, No Facial Droop, Speech Intact / Clear, Moves All Extremities Equally Assessment and Plan - Patient Problems (1) Weakness Current Visit: Yes Status: Acute (2) Compression fracture of L3 lumbar vertebra Current Visit: Yes Status: Chronic (3) Pulmonary embolism and infarction Current Visit: Yes Status: Acute (4) Prostate cancer metastatic to bone Current Visit: Yes Status: Acute (5) Hypertension Current Visit: Yes Status: Chronic Qualifiers: Hypertension type: essential hypertension Qualified Description: Essential hypertension Qualifier Code(s): (I10) Essential (primary) hypertension (6) Liver metastasis Current Visit: Yes Status: Acute (7) Lumbosacral plexopathy Current Visit: Yes Status: Chronic (8) History of transient ischemic attack Current Visit: Yes Status: Chronic - Assessment / Plan Additional Assessment/Plan Details: 1. Start Megace therapy. 2. Continue therapy. 3. Probably home the later this week. He will need therapy probably through the week to regain enough strength to function at home okay. 4. Continue Lovenox for treatment for PE in the setting of active malignancy.
--- NOTE | 2016-05-18 15:53 | PT.PROG ---
Progress Note Progress Note: Patient was not feeling well this morning therefore Refused therapy.
--- NOTE | 2016-05-18 16:02 | PT.PROG ---
Progress Note Progress Note: S. Patient stated that he is feeling a little better this afternoon and would go to the therapy gym. O. Patient ambulated 175 feet to the therapy gym where he used the nu-step x 25 minutes then performed exercises in the form of; long arc quads, heel toe raises , marches, sit to stands standing, marches, hip abduction/adduction all with 3# x 15. Patient performed box step ups x 10 with #3 box. Patient was left with OT for further therapy. A. Patient struggled with #3 box, he tolerated other exercises well. He continues to struggle with fatigue and continues to require seated rest breaks to recover. Patient would continue to benefit from skilled therapy to increase strength and mobility. P. continue POC.
--- NOTE | 2016-05-18 17:39 | OT.PROG ---
Progress Note Progress Note: S: pt stated that pain in lower back is still present but nothing he can't tolerate. He stated he feels better than he did this morning, but did not eat much for lunch. He was asked if he wanted to go outside and he chose not to, stating "its to windy." O: pt completed 8 min on UE bike to increase activity tolerance, 2# sit to stands and RTB in all ranges x15 to increase strength to assist with bed mobility and other postural transitions. pt completed transfer back to his room with 4 wheeled walker and left upright in his bed with alarm on. A: pt may continue to benefit from therapy to increase balance, although his activity tolerance has increased as he ambulates all the way to therapy and back. P: continue per plan of care.
[2016-05-18] MEDS: ATORVASTATIN 20 MG TABLET PO SCH (21:19)
[2016-05-19] MEDS: TAMSULOSIN 0.4 MG CAPSULE PO SCH ×2 (08:15→20:43)
[2016-05-19] MEDS: GABAPENTIN 100 MG CAPSULE PO SCH ×3 (08:15→20:43)
[2016-05-19] MEDS: ENOXAPARIN SODIUM 60 MG/0.6 ML SYRINGE SUBCUT SCH ×2 (08:15→20:44)
[2016-05-19] MEDS: oxyCODONE ER 10 MG TAB PO SCH ×2 (08:15→20:43)
[2016-05-19] MEDS: DOCUSATE 100 MG CAPSULE PO SCH ×2 (08:15→20:43)
[2016-05-19] MEDS: CLOPIDOGREL 75 MG TABLET PO SCH (08:15)
[2016-05-19] MEDS: SILVER SULFADIAZINE 1% 25 GM CREAM TOPICAL SCH ×2 (08:15→20:50)
[2016-05-19] MEDS: POLYETHYLENE GLYCOL 3350 17 GM POWDER PO SCH (08:16)
[2016-05-19] MEDS ORDERED: MEGESTROL ACETATE PO SCH (10:15)
--- NOTE | 2016-05-19 16:25 | PT.PROG ---
Progress Note Progress Note: S. Patient stated that he is feeling good this afternoon. O. Patient ambulated 175 feet to the therapy gym where he used the nu-step x 20 minutes, then performed seated exercises in the form of; heel toe raises, marches, long arc quads, ball squeezes, clamshells, sit to stands, standing hip flexion/extension, abduction/adduction all x 10 bilaterally. Patient ambulated 175 feet back to his room where he was left in bed with alarm and call light. A. Patient tolerated therapy well this afternoon, he continues to require verbal cues to back up to a chair safely, however is making gains with strength and mobility. P. Continue POC.
--- NOTE | 2016-05-19 16:34 | PT.PROG ---
Progress Note Progress Note: S. Patient stated that he is feeling good this morning. O. Patient ambulated 175 feet to the therapy gym where he performed exercises in the form of heel slides, quad sets, ankle pumps, straight leg raises, short arc quads, seated marches, long arc quads, heel toe raises, ball squeezes, clamshells all with 3# all x 15 bilaterally Patient used the nu-step x 15 minutes then ambulated 175 feet back to his room where he was left in bed with alarm and call light. A. Patient tolerated exercises well this morning. Patient continues to ambulate with SBG assist and is independent with supine to stand transfers however stand to sit transfers he requires some verbal cues to transfer safely. Patient would continue to benefit from skilled therapy at this time. P. Continue POC.
[2016-05-19] MEDS: ATORVASTATIN 20 MG TABLET PO SCH (20:43)
[2016-05-20] MEDS: ENOXAPARIN SODIUM 60 MG/0.6 ML SYRINGE SUBCUT SCH ×2 (08:25→20:45)
[2016-05-20] MEDS: oxyCODONE ER 10 MG TAB PO SCH ×2 (08:26→20:44)
[2016-05-20] MEDS: MEGESTROL ACETATE PO SCH (08:26)
[2016-05-20] MEDS: CLOPIDOGREL 75 MG TABLET PO SCH (08:26)
[2016-05-20] MEDS: GABAPENTIN 100 MG CAPSULE PO SCH ×3 (08:26→20:44)
[2016-05-20] MEDS: SILVER SULFADIAZINE 1% 25 GM CREAM TOPICAL SCH ×2 (08:26→21:08)
[2016-05-20] MEDS: TAMSULOSIN 0.4 MG CAPSULE PO SCH ×2 (08:26→20:44)
[2016-05-20] MEDS: DOCUSATE 100 MG CAPSULE PO SCH ×2 (08:26→20:44)
[2016-05-20] MEDS: POLYETHYLENE GLYCOL 3350 17 GM POWDER PO SCH (08:27)
--- NOTE | 2016-05-20 11:06 | OT.PROG ---
Progress Note Progress Note: S: pt was in a good mood today, he refused heat to help with back pain. He does want to go home. O: pt was seen in therapy in the a.m. He completed walking over, around and on uneven surfaces x4 with CGA x2 for safety. His L LE is weak compared to his right as it buckled x1 stepping down. Pt also completed ther ex with GTB in rows, shoulder ext, IROT/EROT all x15 all with BUE's. Pt also completed bicep curls with 2# , shoulder press x15 to assist with strength to help with postural transitions. pt returned to his room using 4 wheeled walker and CGA for safety. He was left upright in bed with alarm on. A: pt would continue to benefit from walking on uneven surfaces to increase balance and safety when he returns home. He was educated to use his weaker L leg when stepping down. P: continue per plan of care, prepare pt for return home.
--- NOTE | 2016-05-20 11:40 | PT.PROG ---
Progress Note Progress Note: S. Patient stated that he would go to the therapy gym this morning. He reports that he is feeling good right now. O. Patient ambulated 175 feet to the therapy gym where he used the nu-step x 20 minutes, then performed exercises in the form of; heel toe raises, marches, long arc quads on the thera-ball, then performed ball squeezes clamshells, and resisted knee flexion with green band and Sit to stands all x 10. Patient ambulated 175 feet back to his room where he was left in bed with alarm and call light. A. Patient tolerated therapy well this morning. He continues to require verbal cues to perform sit to stand transfers safely. He was struggling with fatigue toward the end of the treatment. Patient requires seated rest breaks to recover. Patient would continue to benefit from skilled therapy at this time. P. Continue POC.
--- NOTE | 2016-05-20 15:37 | OT AM DAY ---
Diagnosis : Weakness AM - Occupational Therapy S: The patient seemed to be in good spirits. He was very talkative and ready for therapy. He said he did not need to use the restroom. O: The patient was seen in his room. He completed bed mobility independently. He completed functional transfer independently from his room to therapy approximately 150 feet. The patient completed 10 minutes on the NuStep to increase his overall activity tolerance. He transferred to the mat table with modified independence and contact guard assist for safety. Once at the mat table he completed shoulder press with a two pound ball x20 bilaterally. The patient also completed some dynamic seated balance activities using left and right upper extremities to tap balloon back and forth to challenge his overall balance. The patient finished up by completing the upper body ergometer x6 minutes to improve ranges of motion and strength of his upper extremities. A: The patient would continue to benefit from therapy to challenge his balance. We will continue to work on dynamic standing balance and observe how he does on uneven surfaces. He may be discharged later on in the week. P: Continue seeing patient BID during the week and one time per day over the weekend for upper extremity strengthening exercises, ADLs, and overall functional mobility. ARABELLA
--- NOTE | 2016-05-20 15:58 | OT PM DAY ---
Diagnosis : Weakness PM - Occupational Therapy S: The patient states he would like to go home. He also states he would like a shower today. O: The patient was seen in therapy after PT finished up their treatment. He completed a functional transfer x150 feet to his room. The patient transferred to shower with contact guard assist. He doffed all clothing independently. He completed all showering with supervision to maintain safety. The patient donned his upper extremity and lower extremity clothing independently. He required max assist to don his socks, but this was mainly due to his feet being wet. The patient then transferred back to bed and performed bed mobility independently. He was left in supine position with call light within reach and bed alarm on. A: The patient may continue to benefit from therapy to work on overall activity tolerance and balance. P: Continue seeing patient BID during the week and one time per day over the weekend until discharge. MTDD
--- NOTE | 2016-05-20 16:28 | PT.PROG ---
Progress Note Progress Note: S. Patient stated that he is feeling good this afternoon. O. Patient ambulated 175 feet to the therapy gym where he used the nu-step x 20 minutes, then performed seated exercises in the form of; heel toe raises, marches, long arc quads, ball squeezes, clamshells, sit to stands, standing hip flexion/extension, abduction/adduction all x 10 bilaterally with 3# weights. Patient was left with OT for further therapy. A. Patient tolerated therapy well this afternoon, he required fewer verbal cues for safety this afternoon compared to this morning, he continues to ambulate and transfer with SBG assist, patient is nearing plateau however could benefit from a few more days of therapy. P. Continue POC.
--- NOTE | 2016-05-20 17:25 | OT.PROG ---
Progress Note Progress Note: S: pt was in good mood, he is wanting to go home. O: Pt was seen in therapy in the pm. pt completed ther ex with GTB in all ranges x20 to increase strength to assist sit to stands. pt completed functional transfer approx 75 ft with 4 wheeled walker and CGA for safety. A: pt may continue to benefit from therapy to increase safe functional transfers over uneven surfaces. continue to prepare pt for return home. P: continue per plan of care in preparation for return home.
[2016-05-20] MEDS: ATORVASTATIN 20 MG TABLET PO SCH (20:44)
[2016-05-21] MEDS: ENOXAPARIN SODIUM 60 MG/0.6 ML SYRINGE SUBCUT SCH ×2 (09:06→20:16)
[2016-05-21] MEDS: GABAPENTIN 100 MG CAPSULE PO SCH ×3 (09:06→20:16)
[2016-05-21] MEDS: TAMSULOSIN 0.4 MG CAPSULE PO SCH ×2 (09:06→20:16)
[2016-05-21] MEDS: MEGESTROL ACETATE PO SCH (09:06)
[2016-05-21] MEDS: CLOPIDOGREL 75 MG TABLET PO SCH (09:06)
[2016-05-21] MEDS: DOCUSATE 100 MG CAPSULE PO SCH ×2 (09:06→20:16)
[2016-05-21] MEDS: POLYETHYLENE GLYCOL 3350 17 GM POWDER PO SCH (09:06)
[2016-05-21] MEDS: oxyCODONE ER 10 MG TAB PO SCH ×2 (09:06→20:15)
--- NOTE | 2016-05-21 10:57 | OT.PROG ---
Progress Note Progress Note: S: pt was up and ready for therapy today O: pt completed all bed mobility and transfers with SBA only. pt ambulated to therapy and completed red theraband exercises B UE 20 reps in all directions, pt than completed wall pulleys 2 kg in all directions while standing, pt required cue to slow down. A: pt is doing well and tolerated therapy P: cont per POC
[2016-05-21] MEDS: SILVER SULFADIAZINE 1% 25 GM CREAM TOPICAL SCH (11:46)
--- NOTE | 2016-05-21 13:38 | PT.PROG ---
Progress Note Progress Note: S. Patient stated that he is feeling good today. O. Patient ambulated 175 feet to the therapy gym where he used the nu-step x 30 minutes, then performed sit to stands, long arc quads, clamshells, all x 10 bilaterally with 3# weights and red thera-band Patient ambulated 175 feet back to his room where he was left in bed with alarm and call light. A. Patient tolerated exercises well this morning, he continues to benefit from strengthening and endurance. P. continue POC.
--- NOTE | 2016-05-21 15:15 | PT.PROG ---
Progress Note Progress Note: S. Patient stated that he would go to the therapy gym. O. Patient ambulated 175 feet to the therapy gym where he used the arm bike x 7 minutes then the nu-step x 25 minutes, Patient then performed exercises in the form of; straight leg raises x15, short arc quads x40, long arc quads x20, marches x30, sit to stands x15, clamshells x20, ball squeezes x20 all with 2# weights. Patient ambulated 175 feet back to his room where he was left in bed with alarm and call light. A. Patient continues to tolerate therapy well, he continues to gain strength and endurance however continues to fatigue with exercise. P. Continue POC.
--- NOTE | 2016-05-21 15:22 | OT.PROG ---
Progress Note Progress Note: S: pt stated that he wanted to get cleaned up and requested a shower. O: pt was seen in his room in the p.m. He was supine in bed and completed bed mobility Ind. He then transferred to restroom and completed toileting Ind with hygiene at sink Ind. He transferred approx 150 ft Ind to therapy. PT took over tx once arrive for therapy. OT assisted pt back to his room and shower set up was completed for him. He completed all showering Ind, with doffing of clothing Ind and donning of clothing with MOd Ind, with exception to socks as those were donned with Max a due to wet feet. Pt has demonstrated donning of socks Ind in past visits. pt transferred back to room and was left in supine position in bed with call light within reach. A: pt may continue to work on transfers on uneven surfaces and balance. He does occasionally have his left knee give out and monitor this through all transfers. Due to weather pt's d/c to home may be postponed. P: continue per plan of care.
[2016-05-21] MEDS: ATORVASTATIN 20 MG TABLET PO SCH (20:15)
[2016-05-22] MEDS: TAMSULOSIN 0.4 MG CAPSULE PO SCH ×2 (08:24→20:39)
[2016-05-22] MEDS: oxyCODONE ER 10 MG TAB PO SCH ×2 (08:24→20:39)
[2016-05-22] MEDS: GABAPENTIN 100 MG CAPSULE PO SCH ×3 (08:24→20:40)
[2016-05-22] MEDS: MEGESTROL ACETATE PO SCH (08:24)
[2016-05-22] MEDS: DOCUSATE 100 MG CAPSULE PO SCH ×2 (08:24→20:39)
[2016-05-22] MEDS: ENOXAPARIN SODIUM 60 MG/0.6 ML SYRINGE SUBCUT SCH ×2 (08:24→20:38)
[2016-05-22] MEDS: CLOPIDOGREL 75 MG TABLET PO SCH (08:24)
[2016-05-22] MEDS: POLYETHYLENE GLYCOL 3350 17 GM POWDER PO SCH (08:25)
--- NOTE | 2016-05-22 16:20 | PT PM DAY ---
Diagnosis : Weakness PM - Physical Therapy S: The patient reports he is feeling really good and enjoys coming down to therapy and socializing. O: Today's therapy started after the completion of occupational therapy. He performed therapeutic exercises and functional activities including ambulating 100 feet x2 with all wheeled walker, gait belt, and contact to stand by assistance as well as balance activities on the balance grid with bilateral hand hold assistance and side walking, and independent sit to stand transfers with min assist or visual stand by assistance only. He also performed prolonged standing activities with hand hold assist x2 x10 minutes as well as the stair stepper. A: The patient is doing very well and is increasing with his balance and his strength. P: Continue seeing patient BID during the week and one time per day over the weekend for transfers, ambulation, and range of motion/strengthening exercises. ARABELLA
--- NOTE | 2016-05-22 16:24 | PT AM DAY ---
Diagnosis : Weakness AM - Physical Therapy S: The patient reports he feels really good. He is excited for his home visit so that he can go home. O: The patient ambulates all the way down to therapy where he performs the NuStep for approximately 30 minutes. He also performed the balance grid x3 on each side, standing balance including kicking the ball back and forth, and sit to stands x10. The patient then ambulated back up to his room with walker and contact guard assist. A: At this time the patient does still have a few balance issues and does need assistance getting on and off the equipment. We will continue working with him on strengthening, functional activities, and balance. P: Continue seeing patient BID during the week and one time per day over the weekend for transfers, ambulation, and range of motion/strengthening exercises. ARABELLA
--- NOTE | 2016-05-22 16:45 | OT.PROG ---
Progress Note Progress Note: S: pt was ready for therapy O: pt ambulated to therapy, pt completed standing activity 5 min x 3 while we completed a card game for leisure and cognitive performance. pt did well although complained of back pain throughout standing. A: pt did well and compelted PT after the games. P: cont to strengthen and increase activity tolerance.
[2016-05-22] MEDS: ATORVASTATIN 20 MG TABLET PO SCH (20:40)
[2016-05-23 07:49] VITALS: RESP 18; TEMP 98.1
[2016-05-23] MEDS: POLYETHYLENE GLYCOL 3350 17 GM POWDER PO SCH (08:05)
[2016-05-23] MEDS: GABAPENTIN 100 MG CAPSULE PO SCH (08:07)
[2016-05-23] MEDS: oxyCODONE ER 10 MG TAB PO SCH (08:07)
[2016-05-23] MEDS: CLOPIDOGREL 75 MG TABLET PO SCH (08:07)
[2016-05-23] MEDS: ENOXAPARIN SODIUM 60 MG/0.6 ML SYRINGE SUBCUT SCH (08:07)
[2016-05-23] MEDS: DOCUSATE 100 MG CAPSULE PO SCH (08:07)
[2016-05-23] MEDS: TAMSULOSIN 0.4 MG CAPSULE PO SCH (08:07)
[2016-05-23] MEDS: MEGESTROL ACETATE PO SCH (08:09)
--- NOTE | 2016-05-23 13:00 | DCSUMMARY ---
Hospitalization Summary Hospital Course: Final Discharge Diagnosis: Diagnostic Data, Laboratory Data, and Procedures of Signifigance: Laboratory Results 04/27/16 05/03/16 05/05/16 Range/Units 05:45 06:24 05:47 WBC 2.14 L (4.8-10.8) 10^3/uL RBC 3.46 L (4.70-6.10) 10^6/uL Hgb 10.6 L (14.0-18.0) g/dL Hct 32.8 L (42.0-52.0) % MCV 94.8 H (80-90) FL MCH 30.6 (27-31) PG MCHC 32.3 L (33-37) g/dL RDW Std Deviation 49.5 (39-50) fL RDW Coeff of Yasmine 14.9 H (11.5-14.5) % Plt Count 242 (140-350) 10*3/uL MPV 10.3 (7.4-12.2) FL Immature Gran % (Auto) (0-5) % Neut % (Auto) (50-80) % Lymph % (Auto) (10-50) % [place] % (Auto) (5-15) % Eos % (Auto) (0-8) % Baso % (Auto) (0-1) % Immature Gran # (Auto) 10*3/UL Neut # (Auto) 10*3/UL Lymph # (Auto) 10*3/uL [place] # (Auto) (0.3-0.8) 10*3/UL Eos # (Auto) 10*3/UL Baso # (Auto) 10*3/UL Neutrophils % (Manual) 49 L (50-80) % Band Neutrophils % 0 (0-10) % Lymphocytes % (Manual) 38 (10-50) % Monocytes % (Manual) 10 (0-12) % Eosinophils % (Manual) 3 (0-8) % Basophils % (Manual) 0 (0-1) % Metamyelocytes % Not Reportable Myelocytes % Not Reportable Promyelocytes % Not Reportable Blast Cells Not Reportable WBC Morphology Comment Normal morphology (NORM) Plt Morphology Comment Normal morphology (NORM) RBC Morph Comment Normal morphology (NORM) Sodium 139 137 (135-145) meq/L Potassium 3.8 4.7 (3.8-5.2) meq/L Chloride 107 106 (98-112) meq/L Carbon Dioxide 25 26 (23-33) meq/L Anion Gap 7 5 (5-20) BUN 10 8 (7-22) mg/dL Creatinine 0.7 0.6 L (0.70-1.50) mg/dL Estimated GFR [employer] (>60 ml/min/1.73m(2)) BUN/Creatinine Ratio 14.28 13.33 (6-20) Glucose 84 84 (78-110) mg/dL Calculated Osmolality 285.0 280.0 (267-292) mOsm/kg Calcium 8.5 L 8.6 L (8.7-10.7) mg/dL Magnesium 1.9 (1.6-2.4) mg/dL Total Bilirubin 0.3 (0.3-1.2) mg/dL AST 43 (21-57) IU/L ALT 51 (21-72) IU/L Alkaline Phosphatase 99 (38-126) IU/L Total Protein 5.1 L (6.1-8.0) g/dL Albumin 2.7 L (3.5-4.8) g/dL Globulin 2.4 L (2.50-4.10) g/dL Albumin/Globulin Ratio 1.10 L (1.3-2.0) mg/g Ur Collection Type Clean catch urine Urine Color Yellow Urine Clarity Clear (CLEAR) Urine pH 7.5 (5.0-8.5) Ur Specific [place] 1.015 (1.005-1.030) Urine Protein Negative (NEG) mg/dl Urine Glucose (UA) Negative (NEG) mg/dL Urine Ketones Negative (NEG) Urine Occult Blood Trace H (NEG) Urine Nitrate Negative (NEG) Urine Bilirubin Negative (NEG) Urine Urobilinogen 0.2 (0.2) EU/dL Ur Leukocyte Esterase Negative (NEG) Urine RBC 1-3 (NONE) /hpf Urine WBC None (NONE) Ur Squamous Epith Cells Few (NONE) Ur Renal Epithelial Cell None (NONE) Urine Crystals None Urine Bacteria Rare (NONE) Urine Casts None (NONE) Urine Mucus None (NONE) Urine Trichomonas None (NONE) Urine Yeast None (NONE) Ur Culture Indicated? Culture not set 05/10/16 05/12/16 Range/Units 11:25 06:12 WBC 2.56 L 2.35 L (4.8-10.8) 10^3/uL RBC 4.01 L 4.07 L (4.70-6.10) 10^6/uL Hgb 12.5 L 12.7 L (14.0-18.0) g/dL Hct 39.0 L 39.5 L (42.0-52.0) % MCV 97.3 H 97.1 H (80-90) FL MCH 31.2 H 31.2 H (27-31) PG MCHC 32.1 L 32.2 L (33-37) g/dL RDW Std Deviation 55.5 H 54.6 H (39-50) fL RDW Coeff of Yasmine 15.8 H 15.6 H (11.5-14.5) % Plt Count 241 235 (140-350) 10*3/uL MPV 10.6 10.2 (7.4-12.2) FL Immature Gran % (Auto) 0.4 0.4 (0-5) % Neut % (Auto) 66.4 46.0 L (50-80) % Lymph % (Auto) 10.5 22.1 (10-50) % [place] % (Auto) 18.0 H 23.0 H (5-15) % Eos % (Auto) 3.1 6.8 (0-8) % Baso % (Auto) 1.6 H 1.7 H (0-1) % Immature Gran # (Auto) 0.01 0.01 10*3/UL Neut # (Auto) 1.70 1.08 10*3/UL Lymph # (Auto) 0.27 0.52 10*3/uL [place] # (Auto) 0.46 0.54 (0.3-0.8) 10*3/UL Eos # (Auto) 0.08 0.16 10*3/UL Baso # (Auto) 0.04 0.04 10*3/UL Neutrophils % (Manual) (50-80) % Band Neutrophils % (0-10) % Lymphocytes % (Manual) (10-50) % Monocytes % (Manual) (0-12) % Eosinophils % (Manual) (0-8) % Basophils % (Manual) (0-1) % Metamyelocytes % Myelocytes % Promyelocytes % Blast Cells WBC Morphology Comment Normal morphology Normal morphology (NORM) Plt Morphology Comment Normal morphology Normal morphology (NORM) RBC Morph Comment Normal morphology Normal morphology (NORM) Sodium 136 137 (135-145) meq/L Potassium 4.2 4.4 (3.8-5.2) meq/L Chloride 101 104 (98-112) meq/L Carbon Dioxide 28 26 (23-33) meq/L Anion Gap 7 7 (5-20) BUN 10 9 (7-22) mg/dL Creatinine 0.7 0.7 (0.70-1.50) mg/dL Estimated GFR (>60 ml/min/1.73m(2)) BUN/Creatinine Ratio 14.28 12.85 (6-20) Glucose 93 82 (78-110) mg/dL Calculated Osmolality 280.0 281.0 (267-292) mOsm/kg Calcium 8.8 8.8 (8.7-10.7) mg/dL Magnesium (1.6-2.4) mg/dL Total Bilirubin 0.3 0.4 (0.3-1.2) mg/dL AST 17 L 16 L (21-57) IU/L ALT 31 30 (21-72) IU/L Alkaline Phosphatase 96 96 (38-126) IU/L Total Protein 5.4 L 5.2 L (6.1-8.0) g/dL Albumin 3.2 L 3.0 L (3.5-4.8) g/dL Globulin 2.2 L 2.2 L (2.50-4.10) g/dL Albumin/Globulin Ratio 1.40 1.30 (1.3-2.0) mg/g Ur Collection Type Urine Color Urine Clarity (CLEAR) Urine pH (5.0-8.5) Ur Specific [place] (1.005-1.030) Urine Protein (NEG) mg/dl Urine Glucose (UA) (NEG) mg/dL Urine Ketones (NEG) Urine Occult Blood (NEG) Urine Nitrate (NEG) Urine Bilirubin (NEG) Urine Urobilinogen (0.2) EU/dL Ur Leukocyte Esterase (NEG) Urine RBC (NONE) /hpf Urine WBC (NONE) Ur Squamous Epith Cells (NONE) Ur Renal Epithelial Cell (NONE) Urine Crystals Urine Bacteria (NONE) Urine Casts (NONE) Urine Mucus (NONE) Urine Trichomonas (NONE) Urine Yeast (NONE) Ur Culture Indicated? History and Physical pertinent to Admission: Patient admitted for strengthening Course of Hospitalization: This very nice 81-year-old male with past medical history significant for metastatic prostate cancer with recent compression fracture admission was discharged on April 13 was readmitted with acute chest pain and diagnosed with pulmonary embolus infarct patient has decided they will not be doing any Lupron or any other treatment for metastatic prostate cancer at this time also CT revealed the liver metastasis as well patient has been using Lovenox twice a day he's also been using Flomax for some urinary retention and was transferred to swing bed the for strengthening to may be transition back home he was in swing bed status for a while he is totally and much improved with his strength and he is wanting to be discharged home today as per his wishes and family history will be here to pick him up. We have started Tod to increase is a by mouth intake since he has lost some weight. This is most likely secondary to his cancer. Medication reconciliation was done by Dr. Mckeon patient was started on Eliquis by mouth for his PE this was discussed with the patient by Dr. Mckeon .also the Tod was already called in to pharmacy he will probably continue PT and OT as an outpatient. The patient states that he feels somewhat better now than when he first came in and is very happy to be going home. Past Medical History Medical History: 1. prostate cancer with previous radiation treatment, now with known metastatic lesions. 2. Hypertension. 3. Shingles affected the eyes. 4. Neuropathy, treated with IV Solu-Medrol, treatments complete. 5. History of TIAs Surgical History: 1. History of skin cancer with previous surgery. 2. Radiation therapy for prostate cancer. 3. Colonoscopy in 2010. Pertinent Family History: Father in his 80s with heart disease. Mother had an accidental overdose. He has a sister that had MS. Past Social History: He doesn't smoke but he chews, doesn't drink, no drugs. He lives with his . Since he had this problem with his the legs is more using wheelchair for mobility. Substance Use Type: None On the date of discharge, the patient was examined: Gen.: No acute distress, alert, nontoxic Heart: Regular rate and rhythm, no murmurs, clicks, gallops, or rubs Lungs: Clear to auscultation bilaterally, breathing is nonlabored Abdomen/GI: Normal tones on auscultation, soft, nontender, nondistended Musculoskeletal/extremities: No clubbing, cyanosis, or edema Vitals reviewed and are listed below Vital Signs (24 hrs) Temp Pulse Resp BP Pulse Ox 05/23/16 07:46 98.1 F 65 18 157/80 95 05/22/16 19:00 97.3 F 66 20 172/80 95 Assessment and Plan: 1. As per discharge assessments above 2. Disposition: Home 3. Condition on discharge, stable and improved. 4. Diet: regular diet 5. Activities: resume normal activities 6. Follow-Up: 1. PCP 2. 7. Medications at the Time of Discharge: Home Medications Medication Instructions Recorded Confirmed Type Tamsulosin HCl [Flomax] 1 cap PO BID cap 07/16/14 04/27/16 History Clopidogrel Bisulfate [Plavix] 1 tab PO DAILY #90 tab 10/02/15 04/27/16 Clinic Docusate Sodium [Colace] 100 mg PO BID cap 04/26/16 04/27/16 Rx Apixaban [Eliquis] 5 mg PO BID #60 tablet 05/22/16 Rx Gabapentin [Neurontin] 100 mg PO TID #90 cap 05/22/16 Rx Hydrocodone/Acetaminophen [[place] 1 - 2 tab PO Q4H PRN #120 tab 05/22/16 Rx 7.5-325 Tablet] Lactulose Packet [Kristalose 20 gm PO BID #60 packet 05/22/16 Rx Packet] Megestrol Acetate [Megase] 40 mg PO DAILY #120 oral.susp 05/22/16 Rx oxyCODONE ER Tab [OxyCONTIN Tab] 10 mg PO BID #60 tab 05/22/16 Rx 8. Time, care, counseling and coordination of care for this discharge is greater than 30 minutes. Exam - Vitals Vital Signs: Vital Signs Temperature 98.1 F Temperature Source Temporal Artery Scan Pulse Rate [Apical] 64 Pulse Rate [Pulse Oximeter] 65 Respiratory Rate 18 Blood Pressure [Right Arm] 157/80 Blood Pressure [Left Arm] 130/75 Pulse Ox 95 Oxygen Delivery Method Room Air Height 5 ft 6 in Weight 53.841 kg Patient Problems - Patient Problem List (1) Compression fracture of L3 lumbar vertebra Current Visit: Yes Status: Chronic (2) Constipation Current Visit: No Status: Acute (3) History of prostate cancer Current Visit: No Status: Acute (4) Liver metastasis Current Visit: Yes Status: Acute (5) Prostate cancer metastatic to bone Current Visit: Yes Status: Acute (6) Pulmonary embolism and infarction Current Visit: Yes Status: Acute
--- NOTE | 2016-05-25 11:25 | PT AM DAY ---
Diagnosis : Weakness AM - Physical Therapy S: The patient states he is going home this afternoon. O: The patient ambulated all the way down to therapy with walker and contact guard assist. He performed upper body ergometer x15 minutes, NuStep x30 minutes, seated marches, long arc quads, hip abduction/adduction, ankle pumps, shoulder flexion, shoulder abduction, and biceps flexion. The patient then ambulated all the way back up to his room with walker and contact guard assist. A: At this time the patient has increased his activity tolerance. It is recommended that the patient has 24-hour care upon returning home. P: Continue seeing patient BID during the week and one time per day over the weekend until discharge. ARABELLA
== END 2016-05-23 14:00 | disposition home or self-care (01) | DRG 542 ==
LOC: UNDOADMIN 11:48 → MED/SURG 11:48
PROVIDERS: ADMIT Internal Medicine; ATTEND Internal Medicine
DX: M48.56XA Collapsed vertebra, not elsewhere classified, lumbar region, initial encounter for fracture (principal); I26.99 Other pulmonary embolism without acute cor pulmonale; C78.7 Secondary malignant neoplasm of liver and intrahepatic bile duct; C79.51 Secondary malignant neoplasm of bone; K59.00 Constipation, unspecified; C61 Malignant neoplasm of prostate; C80.1 Malignant (primary) neoplasm, unspecified; R42 Dizziness and giddiness
CPT/HCPCS: 36415; 70553; 80048; 80053; 81001; 81003; 83735; 85007; 85025; 97110; 97112; 97162; 97165; 97530; 97535; A9579; J1650; J1940